=== PATIENT | male | born 1945 | race Caucasian/White ===

== ENCOUNTER → 2021-08-30 | Outpatient (CLI) | payer MEDICARE ==
--- NOTE | 2021-08-30 09:47 | CT ---
EXAMINATION TYPE: CT ankle RT wo con DATE OF EXAM: 08/30/2021 COMPARISON: None HISTORY: 75-year-old male M19.071 Osteoarthritis right ankle and foot. Osteoarthritis Rt Foot and An kle TECHNIQUE: Contiguous axial scanning of the right ankle without IV contrast. Scanning was performed f rom just above the knee joint line down through the right ankle. Coronal and sagittal reconstructions performed. CT DLP: 1022.7 mGycm Automated exposure control for dose reduction was used. FINDINGS: There are bilateral total knee arthroplasties demonstrated. Some degenerative change at the proximal right tibiofibular joint. There is severe degenerative change at the tibiotalar joint with hindfoot valgus and eccentric loss o f cartilage and joint space along the lateral aspect of the tibiotalar joint resulting in bone-on-bon e contact and subchondral cystic change. This hindfoot angulation also results in contact of the distal fibula with the lateral talus and seco ndary bony irregularity and cystic change. There is also secondary significant loss of the medial gordo ar space with reactive cystic change. Small corticomedullary osseous density measuring up to 7 mm below the medial malleolus suggests seque la of remote deltoid ligament injuries. Additional bony fragments are present in the region of the anterior inferior tibiofibular ligament an d lateral malleolus. There is excessive lateral soft tissue density which in part is comprised of the peroneal tendons sug gesting disruption of the peroneal retinaculum. Scattered synovial calcifications. Punctate densities within the sinus Tarsi could represent sequela of old injuries to the root of the extensor retinaculum. There is eccentric joint space narrowing with subchondral cystic change along the medial aspect of th e posterior subtalar joint. Achilles tendon is intact. Degenerative spurring along the dorsal talar neck. Severe degenerative change first MTP joint. IMPRESSION: 1. SEVERE TIBIOTALAR JOINT OA. THERE IS HINDFOOT VALGUS RESULTING IN ECCENTRIC BONE ON BONE CONTACT A LONG THE LATERAL ASPECT OF THE TIBIOTALAR JOINT AND ALSO RESULTING IN [id number] ARTHROPATHY BETWEE N THE DISTAL FIBULA AND LATERAL TALUS. 2. THE ANGULATION ALSO FORCES BONE ON BONE CONTACT MEDIALLY WITH LOSS OF THE MEDIAL CLEAR SPACE. THER E IS ALSO ECCENTRIC OA ALONG THE MEDIAL ASPECT OF THE POSTERIOR SUBTALAR JOINT. 3. CORRESPONDING DEGENERATIVE SPURRING ALONG THE DORSAL TALAR NECK. 4. CORTICATED BONE FRAGMENTS BELOW THE MEDIAL MALLEOLUS, IN THE REGION OF THE AITFL, LATERAL MALLEOLU S, AND ALSO SINUS TARSI SUGGESTING SEQUELA OF REMOTE INJURIES. 5. PROMINENT SOFT TISSUE ALONG THE LATERAL ASPECT OF THE ANKLE SEEMS TO IN PART BE COMPRISED OF DISLO CATED PERONEAL TENDONS SUGGESTING TEAR OF THE SUPERIOR PERONEAL RETINACULUM. 6. SEVERE FIRST MTP JOINT OA INCIDENTALLY NOTED.
== END | disposition home or self-care (01) ==
LOC: RADCTMAIN 08:08
PROVIDERS: ATTEND Orthopaedic Surgery Foot and Ankle Surgery
DX: M19.071 Primary osteoarthritis, right ankle and foot (principal); M21.861 Other specified acquired deformities of right lower leg; M25.774 Osteophyte, right foot

== ENCOUNTER 2022-06-16 10:09 | Emergency (ER) | payer MEDICARE ==
[2022-06-16] MEDS ORDERED: SODIUM CHLORIDE 0.9% 500 ML 500 ML IV STA (10:27)
[2022-06-16] MEDS ORDERED: KETOROLAC 15 MG/ML 1 ML VIAL IM STA (10:27)
--- NOTE | 2022-06-16 10:34 | ED ---
General Adult HPI - General Chief complaint: Chest Pain Stated complaint: SOB, chest pain Time Seen by Provider: 06/16/22 10:20 Source: patient, RN notes reviewed, old records reviewed Mode of arrival: ambulatory Limitations: no limitations - History of Present Illness Initial comments: This is a pleasant 76-year-old male who presents to the emergency room with complaints of chest pain that woke him at 4 AM. Patient states it is worse with deep inspiration. Denies any cough. No nausea, vomiting diarrhea or fevers. Denies any diaphoresis. States he's had similar pain in the past when he had a pulmonary embolism. He also states he's been having some lower extremity cramping. Denies any lower leg swelling. Does have medical history of PE four years ago, cardiac stents, and hypertension. Does not take any blood thinners. -: hour(s) (6) Location: chest Radiation: non-radiation Severity scale (1-10): 8 Quality: sharp Consistency: constant Worsens with: other (Inspiration) Associated Symptoms: other (Bilateral lower extremity cramping) Treatments Prior to Arrival: none - Related Data Home Medications Medication Instructions Recorded Confirmed Vitamin B Complex 1 tab PO DAILY 07/13/14 06/16/22 Vitamin E (Dl,Tocopheryl Acet) 400 unit PO DAILY 07/13/14 06/16/22 [Vitamin E (400 Iu = 180 mg)] atenoloL 25 mg PO DAILY 02/13/16 06/16/22 Aspirin EC [Ecotrin Low Dose] 81 mg PO DAILY 06/16/22 06/16/22 Cholecalciferol [Vitamin D3 (25 25 mcg PO HS 06/16/22 06/16/22 Mcg = 1000 Iu)] Cholecalciferol [Vitamin D3 (25 50 mcg PO DAILY 06/16/22 06/16/22 Mcg = 1000 Iu)] Ezetimibe [Zetia] 10 mg PO HS 06/16/22 06/16/22 Meloxicam [Mobic] 7.5 mg PO BID 06/16/22 06/16/22 Rosuvastatin Calcium 5 mg PO HS 06/16/22 06/16/22 atenoloL 50 mg PO HS 06/16/22 06/16/22 lisinopriL [Prinivil] 20 mg PO DAILY 06/16/22 06/16/22 traZODone HCL [Desyrel] 75 mg PO HS 06/16/22 06/16/22 Previous Rx's Medication Instructions Recorded Magnesium Oxide [Magox 400] 400 mg PO DAILY 14 Days #14 tablet 06/16/22 Allergies Allergy/AdvReac Type Severity Reaction Status Date / Time No Known Allergies Allergy Verified 06/16/22 12:36 Review of Systems ROS Statement: Those systems with pertinent positive or pertinent negative responses have been documented in the HPI. ROS Other: All systems not noted in ROS Statement are negative. Past Medical History Past Medical History: Cancer, Deep Vein Thrombosis (DVT), Hypertension Additional Past Medical History / Comment(s): Other Hx: Skin cancer-basal cell on face-surgically removed, arthiritis bilateral hands & bilateral knees, bursitis bilateral hips-responded well to injections, vitamin D deficiency, urethral stricture tx surgically with laser-pt able to urinate but does not completely empty bladder so he self caths once or twice a day, UTIs prior to self cathing. History of Any Multi-Drug Resistant Organisms: None Reported Past Surgical History: Joint Replacement, Orthopedic Surgery, Tonsillectomy Additional Past Surgical History / Comment(s): skin cancers removed from face, total L knee- needs a total R knee-scheduled for 02/26/16, Multiple arthroscopies of bilateral knees, R hand fx surgically repaired-steel plate and pin in little finger since removed, L ankle fracture with surgical repair. Bilateral eye surgery for glass shard removal. Past Anesthesia/Blood Transfusion Reactions: No Reported Reaction Additional Past Anesthesia/Blood Transfusion Reaction / Comment(s): Pt has never recieved blood. Past Psychological History: No Psychological Hx Reported Smoking Status: Never smoker Past Alcohol Use History: None Reported Past Drug Use History: None Reported - Past Family History Father Additional Family Medical History / Comment(s): Father served in [employer] and came home with mental health issues. He was an alcoholic and suddenly at the age of 48 yrs. Mother Family Medical History: Dementia Additional Family Medical History / Comment(s): Mother passed at age 94yrs. She had slight dementia starting. General Exam Limitations: no limitations General appearance: alert, in no apparent distress Head exam: Present: atraumatic, normocephalic Eye exam: Absent: scleral icterus, conjunctival injection, periorbital swelling ENT exam: Present: mucous membranes moist Neck exam: Present: full ROM. Absent: meningismus Respiratory exam: Present: normal lung sounds bilaterally. Absent: respiratory distress, wheezes, rales, rhonchi, stridor, chest wall tenderness, accessory muscle use, decreased breath sounds Cardiovascular Exam: Present: regular rate, normal rhythm GI/Abdominal exam: Present: soft. Absent: distended, tenderness, guarding, rigid Extremities exam: Present: normal capillary refill. Absent: tenderness, pedal edema, calf tenderness Neurological exam: Present: alert, oriented X3 Psychiatric exam: Present: normal affect, normal mood Skin exam: Present: warm, dry, normal color. Absent: cyanosis, diaphoretic, pallor Course Vital Signs 06/16/22 06/16/22 06/16/22 10:13 10:36 12:17 Temperature 98.4 F Pulse Rate 94 90 84 Respiratory 22 14 18 Rate Blood Pressure 179/90 162/106 171/91 O2 Sat by Pulse 97 94 L 96 Oximetry 06/16/22 13:48 Temperature Pulse Rate 87 Respiratory 16 Rate Blood Pressure 186/97 O2 Sat by Pulse 97 Oximetry EKG Findings - EKG Results: EKG: sinus rhythm (Ventricular rate 90, IN interval 0.178, QRS 0.101, QTC 0.391; left axis deviation) Medical Decision Making - Medical Decision Making Patient presents with left-sided chest pain that awoke him from sleep at 4 AM. Worse within inspiration. Chest x-ray interpreted by me shows bilateral basilar atelectasis with no areas of consolidation. Aortic knob prominent. Radiologist's impression bibasal atelectasis without cardiopulmonary disease process. He is afebrile. Denies any cough. No diaphoresis. Pain is with inspiration only. CBC shows no evidence of leukocytosis. Magnesium 1.5 was given replacement. BUN 22, creatinine 0.7, patient was given IV fluid bolus. CT shows no evidence of pulmonary embolism. Patient continues to have sharp pain with inspiration. He was offered to be placed in observation and declined. Vital signs are stable oxygen saturation 97%, no tachycardia. This is likely costochondritis. Patient directed to increase his fluid intake, take magnesium as prescribed and follow up with his primary care doctor this week. Return to the emergency room with any new or concerning symptoms including persistent chest pain, fevers or difficulty in breathing. Patient and family are agreeable to this plan of care. Case discussed with Dr. Márquez - Lab Data Result diagrams: 06/16/22 10:33 06/16/22 10:33 Lab Results 06/16/22 06/16/22 06/16/22 Range/Units 10:33 10:33 10:33 WBC 8.8 (3.8-10.6) k/uL RBC 4.58 (4.30-5.90) m/uL Hgb 13.9 (13.0-17.5) gm/dL Hct 41.6 (39.0-53.0) % MCV 90.8 (80.0-100.0) fL MCH 30.3 (25.0-35.0) pg MCHC 33.4 (31.0-37.0) g/dL RDW 12.9 (11.5-15.5) % Plt Count 197 (150-450) k/uL MPV 7.2 Neutrophils % 88 % Lymphocytes % 5 % Monocytes % 5 % Eosinophils % 1 % Basophils % 0 % Neutrophils # 7.8 H (1.3-7.7) k/uL Lymphocytes # 0.4 L (1.0-4.8) k/uL Monocytes # 0.5 (0-1.0) k/uL Eosinophils # 0.1 (0-0.7) k/uL Basophils # 0.0 (0-0.2) k/uL PT 10.4 (9.0-12.0) sec INR 0.9 (<1.2) APTT 23.8 (22.0-30.0) sec D-Dimer 1.39 H (<0.60) mg/L FEU Sodium 134 L (137-145) mmol/L Potassium 4.1 (3.5-5.1) mmol/L Chloride 99 (98-107) mmol/L Carbon Dioxide 29 (22-30) mmol/L Anion Gap 6 mmol/L BUN 22 H (9-20) mg/dL Creatinine 0.70 (0.66-1.25) mg/dL Est GFR (CKD-EPI)AfAm >90 (>60 ml/min/1.73 sqM) Est GFR (CKD-EPI)NonAf >90 (>60 ml/min/1.73 sqM) Glucose 137 H (74-99) mg/dL Calcium 9.0 (8.4-10.2) mg/dL Magnesium 1.5 L (1.6-2.3) mg/dL Total Bilirubin 1.2 (0.2-1.3) mg/dL AST 24 (17-59) U/L ALT 28 (4-49) U/L Alkaline Phosphatase 84 (38-126) U/L Troponin I (0.000-0.034) ng/mL Total Protein 6.6 (6.3-8.2) g/dL Albumin 4.1 (3.5-5.0) g/dL 06/16/22 Range/Units 10:33 WBC (3.8-10.6) k/uL RBC (4.30-5.90) m/uL Hgb (13.0-17.5) gm/dL Hct (39.0-53.0) % MCV (80.0-100.0) fL MCH (25.0-35.0) pg MCHC (31.0-37.0) g/dL RDW (11.5-15.5) % Plt Count (150-450) k/uL MPV Neutrophils % % Lymphocytes % % Monocytes % % Eosinophils % % Basophils % % Neutrophils # (1.3-7.7) k/uL Lymphocytes # (1.0-4.8) k/uL Monocytes # (0-1.0) k/uL Eosinophils # (0-0.7) k/uL Basophils # (0-0.2) k/uL PT (9.0-12.0) sec INR (<1.2) APTT (22.0-30.0) sec D-Dimer (<0.60) mg/L FEU Sodium (137-145) mmol/L Potassium (3.5-5.1) mmol/L Chloride (98-107) mmol/L Carbon Dioxide (22-30) mmol/L Anion Gap mmol/L BUN (9-20) mg/dL Creatinine (0.66-1.25) mg/dL Est GFR (CKD-EPI)AfAm (>60 ml/min/1.73 sqM) Est GFR (CKD-EPI)NonAf (>60 ml/min/1.73 sqM) Glucose (74-99) mg/dL Calcium (8.4-10.2) mg/dL Magnesium (1.6-2.3) mg/dL Total Bilirubin (0.2-1.3) mg/dL AST (17-59) U/L ALT (4-49) U/L Alkaline Phosphatase (38-126) U/L Troponin I 0.013 (0.000-0.034) ng/mL Total Protein (6.3-8.2) g/dL Albumin (3.5-5.0) g/dL Disposition Clinical Impression: Elevated d-dimer, Dyspnea, Hypomagnesemia Disposition: HOME SELF-CARE Condition: Good Instructions (If sedation given, give patient instructions): Costochondritis (ED) Additional Instructions: Increase your fluid intake. Take magnesium as prescribed. Tylenol and or Motrin as needed for any pain or discomfort. Follow-up with your primary care doctor this week. Return to the emergency room with any new or concerning symptoms. Prescriptions: Magnesium Oxide [Magox 400] 400 mg PO DAILY 14 Days #14 tablet Is patient prescribed a controlled substance at d/c from ED?: No Referrals: Landy Dixon MD [Primary Care Provider] - 1-2 days Time of Disposition: 13:50
[2022-06-16 11:02] LABS: Basophils % (A) 0 %; Eosinophils # (A) 0.1 k/uL (0-0.7); Eosinophils % (A) 1 %; HCT 41.6 % (39.0-53.0); HGB 13.9 gm/dL (13.0-17.5); Lymphocytes # (A) 0.4 k/uL (1.0-4.8); Lymphocytes % (A) 5 %; MCH 30.3 pg (25.0-35.0); MCHC 33.4 g/dL (31.0-37.0); MCV 90.8 fL (80.0-100.0); Mean Platelet Volume 7.2; Monocytes # (A) 0.5 k/uL (0-1.0); Monocytes % (A) 5 %; Neutrophils # (A) 7.8 k/uL (1.3-7.7); Neutrophils % (A) 88 %; Platelet Count 197 k/uL (150-450); RBC 4.58 m/uL (4.30-5.90); RDW 12.9 % (11.5-15.5); WBC 8.8 k/uL (3.8-10.6)
--- NOTE | 2022-06-16 11:05 | XR ---
EXAMINATION TYPE: XR chest 2V DATE OF EXAM: 06/16/2022 10:57 AM COMPARISON: Chest radiographs from at 4:15 TECHNIQUE: XR chest 2V Frontal and lateral views of the chest. CLINICAL INDICATION:Male, 76 years old with history of Chest Pain; FINDINGS: Lungs/Pleura: Bibasilar atelectasis. No evidence for pneumothorax pleural effusion or focal consolida tion. Pulmonary vascularity: Unremarkable. Heart/mediastinum: Cardiomediastinal silhouette is unremarkable. Musculoskeletal: No acute osseous pathology. IMPRESSION: Bibasilar atelectasis without acute cardiopulmonary disease/process.
[2022-06-16 11:23] LABS: ALT 28 U/L (4-49); AST 24 U/L (17-59); African American GFR (CKD) >90 (>60 ml/min/1.73 sqM); Albumin 4.1 g/dL (3.5-5.0); Alkaline Phosphatase 84 U/L (38-126); Anion Gap 6 mmol/L; Blood Urea Nitrogen 22 mg/dL (9-20); Carbon Dioxide 29 mmol/L (22-30); Chloride 99 mmol/L (98-107); Glucose 137 mg/dL (74-99); Magnesium 1.5 mg/dL (1.6-2.3); Non-African American GFR(CKD) >90 (>60 ml/min/1.73 sqM); Potassium 4.1 mmol/L (3.5-5.1); Sodium 134 mmol/L (137-145); Total Bilirubin 1.2 mg/dL (0.2-1.3); Total Protein 6.6 g/dL (6.3-8.2)
[2022-06-16] MEDS ORDERED: Magnesium Replacement Protocol 1 EACH MISC MISCELLANE PRN (11:24)
[2022-06-16 11:44] LABS: INR 0.9 (<1.2); Partial Thromboplastin Time 23.8 sec (22.0-30.0); Prothrombin Time 10.4 sec (9.0-12.0)
[2022-06-16] MEDS: MAGNESIUM SULFATE-D5W PMX 1 GM in DEXTROSE/WATER 1 100ML.BAG IVPB SCH ×2 (12:14→13:44)
--- NOTE | 2022-06-16 13:05 | CT ---
EXAMINATION TYPE: CT angio chest CT DLP: 381.3 mGycm, Automated exposure control for dose reduction was used. DATE OF EXAM: 06/16/2022 12:54 PM COMPARISON: 01/19/2015. CLINICAL INDICATION:Male, 76 years old with history of elevated dimer r/o pe; SOB h/o blood clots TECHNIQUE/CONTRAST: CTA scan of the thorax is performed with IV Contrast, patient injected with 100 mL of Isovue 370, pul monary embolism protocol. MIP images are created and reviewed. FINDINGS: Pulmonary Artery: There is no evidence for a filling defect within the pulmonary vasculature to sugge st acute pulmonary embolism. The pulmonary artery is at the upper limits normal measuring 3.2 cm. Lungs/Pleura: Peripheral airspace opacities are seen most pronounced in the lung bases left greater t burr right. Airway: Large airways are patent. Heart: The heart is mildly enlarged for size there is coronary artery atherosclerosis. Aortic Valve c alcifications are present. Vasculature: No evidence of aortic aneurysm. Mediastinum: No gross evidence of adenopathy. Musculoskeletal: No acute osseous abnormalities Soft Tissues: Unremarkable. Lower neck: No significant findings. Upper Abdomen calcified granuloma within the spleen. IMPRESSION: 1. No evidence of pulmonary embolism. 2. Bibasilar predominately peripheral opacities which have increased from 2015. Represent combination atelectasis and scarring with underlying airspace disease not entirely excluded. Correlate clinicall y for signs of pneumonia.
[2022-06-16 13:48] VITALS: BP 186/97
[2022-06-16 14:35] VITALS: PULSE 86; RESP 20; TEMP 98.2
== END 2022-06-16 14:47 | disposition home or self-care (01) ==
LOC: EC 10:09
DX: M94.0 Chondrocostal junction syndrome [Tietze] (principal); R06.00 Dyspnea, unspecified; R79.89 Other specified abnormal findings of blood chemistry; E83.42 Hypomagnesemia; I10 Essential (primary) hypertension; Z86.718 Personal history of other venous thrombosis and embolism; Z85.828 Personal history of other malignant neoplasm of skin; Z79.899 Other long term (current) drug therapy; Z86.711 Personal history of pulmonary embolism; Z95.5 Presence of coronary angioplasty implant and graft; Z79.82 Long term (current) use of aspirin
CPT/HCPCS: 36415; 93005; 85379; 80053; 83735; 84484; 85025; 85610; 85730; 71046; 71275; 99285; 96365; 96366; 96361; 96372; J3475; J1885; Q9967

== ENCOUNTER → 2022-07-07 | Outpatient (CLI) | payer MEDICARE ==
--- NOTE | 2022-07-07 12:37 | CT ---
EXAMINATION TYPE: CT brain wo con DATE OF EXAM: 07/07/2022 COMPARISON: None HISTORY: New Daily Persistent Headache CT DLP: 1108.40 mGycm Automated exposure control for dose reduction was used. FINDINGS: Nasal septal deviation. Sinuses clear. Orbits symmetric. Mild generalized degenerative change. Low-at tenuation in the white matter. No midline shift or mass effect. No acute hemorrhage. Calvarium intact . Craniocervical junction maintained. A partially empty sella turcica. Intracranial atherosclerotic c hanges noted. IMPRESSION: MILD DEGENERATIVE CHANGE WITH NONSPECIFIC WHITE MATTER CHANGES MOST TYPICAL OF REMOTE WHITE MATTER IS CHEMIA.
== END | disposition home or self-care (01) ==
LOC: RADCTMAIN 12:03
PROVIDERS: ATTEND Family Medicine
DX: G31.9 Degenerative disease of nervous system, unspecified (principal); G44.52 New daily persistent headache (NDPH); R90.82 White matter disease, unspecified
CPT/HCPCS: 70450

== ENCOUNTER 2022-08-19 12:47 | Emergency (ER) | payer MEDICARE ==
[2022-08-19] MEDS ORDERED: KETOROLAC 15 MG/ML 1 ML VIAL IVP STA (13:41)
[2022-08-19] MEDS ORDERED: SODIUM CHLORIDE 0.9% 1,000 ML IV STA (13:41)
[2022-08-19 13:52] LABS: Basophils # (A) 0.1 k/uL (0-0.2); Basophils % (A) 1 %; Eosinophils # (A) 0.2 k/uL (0-0.7); Eosinophils % (A) 2 %; HCT 45.9 % (39.0-53.0); HGB 15.5 gm/dL (13.0-17.5); Lymphocytes # (A) 1.4 k/uL (1.0-4.8); Lymphocytes % (A) 19 %; MCH 29.7 pg (25.0-35.0); MCHC 33.7 g/dL (31.0-37.0); MCV 88.3 fL (80.0-100.0); Mean Platelet Volume 7.1; Monocytes # (A) 0.5 k/uL (0-1.0); Monocytes % (A) 7 %; Neutrophils # (A) 4.9 k/uL (1.3-7.7); Neutrophils % (A) 69 %; Platelet Count 278 k/uL (150-450); RDW 13.4 % (11.5-15.5)
[2022-08-19 14:06] LABS: ALT 25 U/L (4-49); AST 25 U/L (17-59); African American GFR (CKD) >90 (>60 ml/min/1.73 sqM); Albumin 4.6 g/dL (3.5-5.0); Alkaline Phosphatase 98 U/L (38-126); Anion Gap 8 mmol/L; Blood Urea Nitrogen 28 mg/dL (9-20); Calcium 9.6 mg/dL (8.4-10.2); Carbon Dioxide 28 mmol/L (22-30); Chloride 106 mmol/L (98-107); Glucose 111 mg/dL (74-99); Lipase 123 U/L (23-300); Non-African American GFR(CKD) 84 (>60 ml/min/1.73 sqM); Potassium 4.2 mmol/L (3.5-5.1); Sodium 142 mmol/L (137-145); Total Bilirubin 0.9 mg/dL (0.2-1.3); Total Protein 7.7 g/dL (6.3-8.2)
--- NOTE | 2022-08-19 14:25 | ED ---
Abdominal Pain HPI - General Chief Complaint: Abdominal Pain Stated Complaint: abd pain Time Seen by Provider: 08/19/22 13:04 Source: patient, RN notes reviewed, old records reviewed Mode of arrival: ambulatory Limitations: no limitations - History of Present Illness Initial Comments: Patient is a 76-year-old male presenting to the emergency Department with complaints of abdominal pain that's been getting worse over the past 2 weeks. Patient saw his PCP today who recommended coming in for further evaluation. Patient describes the pain as about a 5/10 when he is not moving, in the middle of his abdomen. Does not radiate. He states he has not been able to eat much over the past 2 weeks and has lost a proximally 17 pounds. He denies any nausea or vomiting just no appetite. He states he has been dealing with some constipation however he has been passing gas. No diarrhea. Patient self caths secondary to urethral stricture, he states yesterday when he did this he did have some blood and today his urine looked orange colored. He denies any chest pain however he does feel some mild shortness of breath, he is not sure if its from the pressure was abdomen. Denies any fevers or chills, no lightheadedness or dizziness. He admits to history of umbilical hernia repair many years ago, no other abdominal surgeries. Patient has no further complaints. - Related Data Home Medications Medication Instructions Recorded Confirmed Vitamin B Complex 1 tab PO DAILY 07/13/14 06/16/22 Vitamin E (Dl,Tocopheryl Acet) 400 unit PO DAILY 07/13/14 06/16/22 [Vitamin E (400 Iu = 180 mg)] atenoloL 25 mg PO DAILY 02/13/16 06/16/22 Aspirin EC [Ecotrin Low Dose] 81 mg PO DAILY 06/16/22 06/16/22 Cholecalciferol [Vitamin D3 (25 25 mcg PO HS 06/16/22 06/16/22 Mcg = 1000 Iu)] Cholecalciferol [Vitamin D3 (25 50 mcg PO DAILY 06/16/22 06/16/22 Mcg = 1000 Iu)] Ezetimibe [Zetia] 10 mg PO HS 06/16/22 06/16/22 Meloxicam [Mobic] 7.5 mg PO BID 06/16/22 06/16/22 Rosuvastatin Calcium 5 mg PO HS 06/16/22 06/16/22 atenoloL 50 mg PO HS 06/16/22 06/16/22 lisinopriL [Prinivil] 20 mg PO DAILY 06/16/22 06/16/22 traZODone HCL [Desyrel] 75 mg PO HS 06/16/22 06/16/22 Previous Rx's Medication Instructions Recorded Magnesium Oxide [Magox 400] 400 mg PO DAILY 14 Days #14 tablet 06/16/22 Cephalexin [Keflex] 500 mg PO Q6HR 7 Days #28 cap 08/19/22 Allergies Allergy/AdvReac Type Severity Reaction Status Date / Time No Known Allergies Allergy Verified 06/16/22 12:36 Review of Systems ROS Statement: Those systems with pertinent positive or pertinent negative responses have been documented in the HPI. ROS Other: All systems not noted in ROS Statement are negative. Past Medical History Past Medical History: Cancer, Deep Vein Thrombosis (DVT), Hypertension, Osteoarthritis (OA) Additional Past Medical History / Comment(s): Other Hx: Skin cancer-basal cell on face-surgically removed, arthiritis bilateral hands & bilateral knees, bursitis bilateral hips-responded well to injections, vitamin D deficiency, urethral stricture tx surgically with laser-pt able to urinate but does not completely empty bladder so he self caths once or twice a day, UTIs prior to self cathing. History of Any Multi-Drug Resistant Organisms: None Reported Past Surgical History: Hernia Repair, Joint Replacement, Orthopedic Surgery, Tonsillectomy Additional Past Surgical History / Comment(s): skin cancers removed from face, total L knee- needs a total R knee-scheduled for 02/26/16, Multiple arthroscopies of bilateral knees, R hand fx surgically repaired-steel plate and pin in little finger since removed, L ankle fracture with surgical repair. Bilateral eye surgery for glass shard removal. Past Anesthesia/Blood Transfusion Reactions: No Reported Reaction Additional Past Anesthesia/Blood Transfusion Reaction / Comment(s): Pt has never recieved blood. Past Psychological History: No Psychological Hx Reported Smoking Status: Never smoker Past Alcohol Use History: None Reported Past Drug Use History: None Reported - Past Family History Father Additional Family Medical History / Comment(s): Father served in [employer] and came home with mental health issues. He was an alcoholic and suddenly at the age of 48 yrs. Mother Family Medical History: Dementia Additional Family Medical History / Comment(s): Mother passed at age 94yrs. She had slight dementia starting. General Exam - General Exam Comments Initial Comments: GENERAL: Patient is well-developed and well-nourished. Patient is nontoxic and in no acute distress. HEAD: Atraumatic, normocephalic. EYES: Pupils equal round and reactive to light, extraocular movements intact, sclera anicteric, conjunctiva are normal. Eyelids were unremarkable. ENT: Moist mucous membranes. NECK: Normal range of motion, supple without lymphadenopathy or JVD. LUNGS: Unlabored respirations. Breath sounds clear to auscultation bilaterally and equal. No wheezes rales or rhonchi. HEART: Regular rate and rhythm without murmurs, rubs or gallops. ABDOMEN: abdomen is soft, tender to palpation around the umbilicus, left lower quadrant. Normoactive bowel sounds. No guarding, no rebound. No masses appreciated. : Deferred MUSCULOSKELETAL: Normal extremities with adequate strength and normal range of motion, no pitting or edema. No clubbing or cyanosis. NEUROLOGICAL: Patient is alert and oriented x 3. Motor and sensory are also intact. Cranial nerves II through XII grossly intact. Symmetrical smile. Normal speech, normal gait. PSYCH: Normal mood, normal affect. SKIN: Warm, Dry, normal turgor, no rashes or lesions noted. Limitations: no limitations Course Vital Signs 08/19/22 08/19/22 12:49 15:42 Temperature 97.3 F L Pulse Rate 94 84 Respiratory 16 19 Rate Blood Pressure 170/102 173/102 O2 Sat by Pulse 97 96 Oximetry Medical Decision Making - Medical Decision Making patient is a 76-year-old male here with umbilical abdominal pain over the past 2 weeks. No appetite, he lost 17 pounds. No fevers, no associated nausea or vomiting. Patient is hypertensive on arrival, rest of vitals normal. Laboratory studies show a normal white count, electrolytes within normal limits, lactic acid is 1.5. CT the abdomen and pelvis shows a 4 cm stable abdominal aortic aneurysm, no other acute process. Urinalysis is positive for nitrates, large amount leukocyte Estrace and 40 wbc's. Urine culture was sent. I did discuss results with the patient and his was at bedside. Patient will be given 1 g of Rocephin here in the ER we sent home on Keflex. Patient is agreeable with this plan. We discussed following up with his PCP regarding the abdominal aortic aneurysm. He will follow-up. Return parameters were d iscussed with the patient he verbalizes understanding. He stable for discharge home. Case discussed with Dr. Mario. Was pt. sent in by a medical professional or institution (, [facility], VENDING MACHINE COIN COLLECTOR, urgent care, hospital, or care home...) When possible be specific @ -[No] Did you speak to anyone other than the patient for history (EMS, parent, family, police, friend...)? What history was obtained from this source @ -[No] Did you review nursing and triage notes (agree or disagree)? Why? @ -[I reviewed and agree with nursing and triage notes] Were old charts reviewed (outside hosp., previous admission, EMS record, old EKG, old radiological studies, urgent care reports/EKG's, care home records)? Report findings @ -[No old charts were reviewed] Differential Diagnosis (chest pain, altered mental status, abdominal pain women, abdominal pain men, vaginal bleeding, weakness, fever, dyspnea, syncope, headache, dizziness, GI bleed, back pain, seizure, CVA, palpatations, mental health)? @ -[Differential Abdominal Pain Men: Appendicitis, cholecystitis, diverticulosis, ischemic bowel, pancreatitis, h epatitis, UTI, gastroenteritis, AAA, incarcerated hernia, bowel obstruction, constipation, inflammatory bowel, hepatitis, peptic ulcer disease, splenic infarction, perforated viscus, testicular torsion, this is not meant to be an all-inclusive list] EKG interpreted by me (3pts min.). @ -[As above] X-rays interpreted by me (1pt min.). @ -[None done] CT interpreted by me (1pt min.). @ -[None done] U/S interpreted by me (1pt. min.). @ -[None done] What testing was considered but not performed or refused? (CT, X-rays, U/S, labs)? Why? @ -[None] What meds were considered but not given or refused? Why? @ -[None] Did you discuss the management of the patient with other professionals (professionals i.e. , [facility], VENDING MACHINE COIN COLLECTOR, lab, RT, psych nurse, secondary social studies teacher, security system analyst, teacher, division officer weapons department, case management director)? Give summary @ -[Dr. Mario] Was smoking cessation discussed for >3mins.? @ -[No] Was critical care preformed (if so, how long)? @ -[No] Were there social determinants of health that impacted care today? How? (Homelessness, low income, unemployed, alcoholism, drug addiction, transportation, low edu. Level, literacy, decrease access to med. care, half-way, rehab)? @ -[No] Was there de-escalation of care discussed even if they declined (Discuss DNR or withdrawal of care, Hospice)? DNR status @ -[No] What co-morbidities impacted this encounter? (DM, HTN, Smoking, COPD, CAD, Cancer, CVA, ARF, Chemo, Hep., AIDS, mental health diagnosis, sleep apnea, morbid obesity)? @ -[None] Drug Therapy requiring intensive monitoring for toxicity (Heparin, Nitro, Insulin, Cardizem)? @ -[No] Were any procedures done? @ -[No] Side effects of treatment? @ -[No] Exacerbation, Progression, or Severe Exacerbation? @ -[No] Poses a threat to life or bodily function? How? (Chest pain, USA, NV, pneumonia, PE, COPD, DKA, ARF, appy, cholecystitis, CVA, Diverticulitis, Homicidal, Suicidal, threat to staff... and all critical care pts) @ -[No] - Lab Data Result diagrams: 08/19/22 13:43 08/19/22 13:43 Lab Results 08/19/22 08/19/22 08/19/22 Range/Units 13:43 13:43 13:43 WBC 7.0 (3.8-10.6) k/uL RBC 5.20 (4.30-5.90) m/uL Hgb 15.5 (13.0-17.5) gm/dL Hct 45.9 (39.0-53.0) % MCV 88.3 (80.0-100.0) fL MCH 29.7 (25.0-35.0) pg MCHC 33.7 (31.0-37.0) g/dL RDW 13.4 (11.5-15.5) % Plt Count 278 (150-450) k/uL MPV 7.1 Neutrophils % 69 % Lymphocytes % 19 % Monocytes % 7 % Eosinophils % 2 % Basophils % 1 % Neutrophils # 4.9 (1.3-7.7) k/uL Lymphocytes # 1.4 (1.0-4.8) k/uL Monocytes # 0.5 (0-1.0) k/uL Eosinophils # 0.2 (0-0.7) k/uL Basophils # 0.1 (0-0.2) k/uL Sodium 142 (137-145) mmol/L Potassium 4.2 (3.5-5.1) mmol/L Chloride 106 (98-107) mmol/L Carbon Dioxide 28 (22-30) mmol/L Anion Gap 8 mmol/L BUN 28 H (9-20) mg/dL Creatinine 0.88 (0.66-1.25) mg/dL Est GFR (CKD-EPI)AfAm >90 (>60 ml/min/1.73 sqM) Est GFR (CKD-EPI)NonAf 84 (>60 ml/min/1.73 sqM) Glucose 111 H (74-99) mg/dL Plasma Lactic Acid Rodrigo (0.7-2.0) mmol/L Calcium 9.6 (8.4-10.2) mg/dL Total Bilirubin 0.9 (0.2-1.3) mg/dL AST 25 (17-59) U/L ALT 25 (4-49) U/L Alkaline Phosphatase 98 (38-126) U/L Total Protein 7.7 (6.3-8.2) g/dL Albumin 4.6 (3.5-5.0) g/dL Lipase 123 (23-300) U/L Urine Color Yellow Urine Appearance Cloudy (Clear) Urine pH 6.0 (5.0-8.0) Ur Specific [place] 1.050 H (1.001-1.035) Urine Protein Trace H (Negative) Urine Glucose (UA) Negative (Negative) Urine Ketones Trace H (Negative) Urine Blood Trace H (Negative) Urine Nitrite Positive (Negative) Urine Bilirubin Negative (Negative) Urine Urobilinogen <2.0 (<2.0) mg/dL Ur Leukocyte Esterase Large H (Negative) Urine RBC 2 (0-5) /hpf Urine WBC 40 H (0-5) /hpf Ur Squamous Epith Cells 1 (0-4) /hpf Urine Bacteria Many H (None) /hpf Urine Mucus Many H (None) /hpf 08/19/22 Range/Units 13:43 WBC (3.8-10.6) k/uL RBC (4.30-5.90) m/uL Hgb (13.0-17.5) gm/dL Hct (39.0-53.0) % MCV (80.0-100.0) fL MCH (25.0-35.0) pg MCHC (31.0-37.0) g/dL RDW (11.5-15.5) % Plt Count (150-450) k/uL MPV Neutrophils % % Lymphocytes % % Monocytes % % Eosinophils % % Basophils % % Neutrophils # (1.3-7.7) k/uL Lymphocytes # (1.0-4.8) k/uL Monocytes # (0-1.0) k/uL Eosinophils # (0-0.7) k/uL Basophils # (0-0.2) k/uL Sodium (137-145) mmol/L Potassium (3.5-5.1) mmol/L Chloride (98-107) mmol/L Carbon Dioxide (22-30) mmol/L Anion Gap mmol/L BUN (9-20) mg/dL Creatinine (0.66-1.25) mg/dL Est GFR (CKD-EPI)AfAm (>60 ml/min/1.73 sqM) Est GFR (CKD-EPI)NonAf (>60 ml/min/1.73 sqM) Glucose (74-99) mg/dL Plasma Lactic Acid Rodrigo 1.5 (0.7-2.0) mmol/L Calcium (8.4-10.2) mg/dL Total Bilirubin (0.2-1.3) mg/dL AST (17-59) U/L ALT (4-49) U/L Alkaline Phosphatase (38-126) U/L Total Protein (6.3-8.2) g/dL Albumin (3.5-5.0) g/dL Lipase (23-300) U/L Urine Color Urine Appearance (Clear) Urine pH (5.0-8.0) Ur Specific [place] (1.001-1.035) Urine Protein (Negative) Urine Glucose (UA) (Negative) Urine Ketones (Negative) Urine Blood (Negative) Urine Nitrite (Negative) Urine Bilirubin (Negative) Urine Urobilinogen (<2.0) mg/dL Ur Leukocyte Esterase (Negative) Urine RBC (0-5) /hpf Urine WBC (0-5) /hpf Ur Squamous Epith Cells (0-4) /hpf Urine Bacteria (None) /hpf Urine Mucus (None) /hpf Disposition Clinical Impression: UTI (urinary tract infection) Disposition: HOME SELF-CARE Condition: Stable Instructions (If sedation given, give patient instructions): Urinary Tract Infection in Men (ED) Additional Instructions: Please return to the Emergency Department if symptoms worsen or any other concerns. Take antibiotics as prescribed, finish entire course. Please take Motrin or Tylenol for any discomfort. Follow-up with your primary care regarding CT findings of the abdomen as well as current infection. Prescriptions: Cephalexin [Keflex] 500 mg PO Q6HR 7 Days #28 cap Is patient prescribed a controlled substance at d/c from ED?: No Referrals: Landy Dixon MD [Primary Care Provider] - 1-2 days Time of Disposition: 16:48
--- NOTE | 2022-08-19 15:40 | CT ---
EXAMINATION TYPE: CT abdomen pelvis w con DATE OF EXAM: 08/19/2022 COMPARISON: None HISTORY: abd pain, weightloss CT DLP: 1290.9 mGycm CONTRAST: CT scan of the abdomen and pelvis is performed without Oral Contrast and with IV Contrast, patient in jected with 100 mL of Isovue 300. FINDINGS: LUNG BASES-: No visible nodule. No infiltrate. LIVER/GB: No calcified gallstones. No space occupying hepatic lesion. Biliary tree is of normal ca liber. PANCREAS: No inflammation. No distinct mass. SPLEEN: No splenic enlargement. No lesion seen. ADRENALS: No nodule. No thickening. KIDNEYS/BLADDER: No hydronephrosis. No nephrolithiasis. No distinct renal mass. Urinary bladder g rossly unremarkable. BOWEL: Normal appendix. Normal bowel caliber. No inflammation. Sigmoid diverticulosis without diver ticulitis. GENITAL ORGANS: No gross abnormality. LYMPH NODES: No greater than 1cm abdominal or pelvic lymph nodes are appreciated. AORTA: Uncomplicated Infrarenal abdominal aortic aneurysm measuring 4 cm AP dimension. Scattered athe romatous change. OSSEOUS STRUCTURES: No significant abnormality is seen. OTHER: No significant additional abnormality is seen. IMPRESSION: 1. No acute intra-abdominal process visualized. 2. Sigmoid diverticulosis without diverticulitis. 3. Infrarenal abdominal aortic aneurysm.
[2022-08-19 16:18] LABS: Appearance,Urine Cloudy (Clear); Bacteria,Urine Many /hpf; Bilirubin,Urine Negative (Negative); Blood,Urine Trace (Negative); Color,Urine Yellow; Glucose,Urine (UA) Negative (Negative); Ketones,Urine Trace (Negative); Leukocyte Esterase,Urine Large (Negative); Mucus,Urine Many /hpf; Nitrite,Urine Positive (Negative); Protein,Urine Trace (Negative); RBC,Urine 2 /hpf (0-5); Squamous Epithelial Cell,Urine 1 /hpf (0-4); Urobilinogen,Urine <2.0 mg/dL (<2.0); WBC,Urine 40 /hpf (0-5)
[2022-08-19] MEDS ORDERED: cefTRIAXone IN SWFI 1,000 MG/10 ML SYRINGE IVP STA (16:44)
[2022-08-19 17:07] VITALS: BP 188/120; PULSE 92; RESP 18; TEMP 97.6
== END 2022-08-19 17:07 | disposition home or self-care (01) ==
LOC: EC 12:47
DX: N39.0 Urinary tract infection, site not specified (principal); K57.30 Diverticulosis of large intestine without perforation or abscess without bleeding; I71.43 Infrarenal abdominal aortic aneurysm, without rupture; I10 Essential (primary) hypertension; M19.90 Unspecified osteoarthritis, unspecified site; Z79.1 Long term (current) use of non-steroidal anti-inflammatories (NSAID); Z79.82 Long term (current) use of aspirin; Z79.899 Other long term (current) drug therapy
CPT/HCPCS: 36415; 80053; 83605; 83690; 85025; 81001; 87086; 74177; 99284; 96374; 96375; 96361 ×3; J0696; J1885; Q9967

== ENCOUNTER 2022-12-04 18:59 | Emergency (ER) | payer MEDICARE ==
--- NOTE | 2022-12-04 20:26 | US ---
EXAMINATION TYPE: US venous doppler duplex LE RT DATE OF EXAM: 12/04/2022 7:56 PM COMPARISON: NONE CLINICAL INDICATION: Male, 77 years old with history of pain; pain in right leg x 3 days. Pt states h is leg has been cramping up. Hx of DVT in left leg years ago. Takes baby aspirin daily SIDE PERFORMED: Right TECHNIQUE: The lower extremity deep venous system is examined utilizing real time linear array sonog danii with graded compression, doppler sonography and color-flow sonography. VESSELS IMAGED: Common Femoral Vein Deep Femoral Vein Greater Saphenous Vein * Femoral Vein Popliteal Vein Small Saphenous Vein * Proximal Calf Veins (* superficial vessels) DESCRIPTION: Grayscale, color doppler, spectral doppler imaging performed of the deep veins of the lower extremiti es. There is normal flow, compressibility, vascular waveforms. IMPRESSION: Negative for DVT, right lower extremity
--- NOTE | 2022-12-04 20:46 | ED ---
General Adult HPI - General Chief complaint: Extremity Injury, Lower Stated complaint: possible DVT Time Seen by Provider: 12/04/22 20:43 Source: patient, RN notes reviewed Mode of arrival: ambulatory - History of Present Illness Initial comments: Patient is 77-year-old male who presents to the emergency department for right lower extremity pain. Patient has pain in the back of his right thigh which started 3 days ago. He denies injury but does admit to a lot of yard work this week. Pain worse with walking. Patient was sent from his primary care provider to rule out DVT. 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 He takes a baby aspirin otherwise no blood there use. No chest pain or shortness of breath. No fever, chills, nausea, vomiting. - Related Data Home Medications Medication Instructions Recorded Confirmed Vitamin B Complex 1 tab PO DAILY 07/13/14 06/16/22 Vitamin E (Dl,Tocopheryl Acet) 400 unit PO DAILY 07/13/14 06/16/22 [Vitamin E (400 Iu = 180 mg)] atenoloL 25 mg PO DAILY 02/13/16 06/16/22 Aspirin EC [Ecotrin Low Dose] 81 mg PO DAILY 06/16/22 06/16/22 Cholecalciferol [Vitamin D3 (25 25 mcg PO HS 06/16/22 06/16/22 Mcg = 1000 Iu)] Cholecalciferol [Vitamin D3 (25 50 mcg PO DAILY 06/16/22 06/16/22 Mcg = 1000 Iu)] Ezetimibe [Zetia] 10 mg PO HS 06/16/22 06/16/22 Meloxicam [Mobic] 7.5 mg PO BID 06/16/22 06/16/22 Rosuvastatin Calcium 5 mg PO HS 06/16/22 06/16/22 atenoloL 50 mg PO HS 06/16/22 06/16/22 lisinopriL [Prinivil] 20 mg PO DAILY 06/16/22 06/16/22 traZODone HCL [Desyrel] 75 mg PO HS 06/16/22 06/16/22 Previous Rx's Medication Instructions Recorded Magnesium Oxide [Magox 400] 400 mg PO DAILY 14 Days #14 tablet 06/16/22 Cephalexin [Keflex] 500 mg PO Q6HR 7 Days #28 cap 08/19/22 Ibuprofen [Motrin] 800 mg PO Q8HR PRN #30 tab 12/04/22 Allergies Allergy/AdvReac Type Severity Reaction Status Date / Time No Known Allergies Allergy Verified 12/04/22 19:07 Review of Systems ROS Statement: Those systems with pertinent positive or pertinent negative responses have been documented in the HPI. ROS Other: All systems not noted in ROS Statement are negative. Past Medical History Past Medical History: Cancer, Deep Vein Thrombosis (DVT), Hypertension, Osteoarthritis (OA) Additional Past Medical History / Comment(s): Other Hx: Skin cancer-basal cell on face-surgically removed, arthiritis bilateral hands & bilateral knees, bursitis bilateral hips-responded well to injections, vitamin D deficiency, urethral stricture tx surgically with laser-pt able to urinate but does not completely empty bladder so he self caths once or twice a day, UTIs prior to self cathing. History of Any Multi-Drug Resistant Organisms: None Reported Past Surgical History: Hernia Repair, Joint Replacement, Orthopedic Surgery, Tonsillectomy Additional Past Surgical History / Comment(s): skin cancers removed from face, total L knee- needs a total R knee-scheduled for 02/26/16, Multiple arthroscopies of bilateral knees, R hand fx surgically repaired-steel plate and pin in little finger since removed, L ankle fracture with surgical repair. Bilateral eye surgery for glass shard removal. Past Anesthesia/Blood Transfusion Reactions: No Reported Reaction Additional Past Anesthesia/Blood Transfusion Reaction / Comment(s): Pt has never recieved blood. Past Psychological History: No Psychological Hx Reported Smoking Status: Never smoker Past Alcohol Use History: None Reported Past Drug Use History: None Reported - Past Family History Father Additional Family Medical History / Comment(s): Father served in [employer] and came home with mental health issues. He was an alcoholic and suddenly at the age of 48 yrs. Mother Family Medical History: Dementia Additional Family Medical History / Comment(s): Mother passed at age 94yrs. She had slight dementia starting. General Exam General appearance: alert, in no apparent distress Head exam: Present: atraumatic, normocephalic, normal inspection Eye exam: Present: normal appearance, PERRL, EOMI. Absent: scleral icterus, conjunctival injection, periorbital swelling Respiratory exam: Present: normal lung sounds bilaterally. Absent: respiratory distress, wheezes, rales, rhonchi, stridor Cardiovascular Exam: Present: regular rate, normal rhythm, normal heart sounds. Absent: systolic murmur, diastolic murmur, rubs, gallop, clicks Right Hip exam: Present: normal inspection, full ROM. Absent: tenderness, swelling Upper Leg exam: Present: normal inspection, full ROM. Absent: tenderness, swelling, erythema Knee exam: Present: normal inspection, full ROM. Absent: tenderness, swelling Lower Leg exam: Present: normal inspection, full ROM. Absent: tenderness, swelling Ankle exam: Present: normal inspection, full ROM. Absent: tenderness, swelling Neurovascular tendon exam: Present: no vascular compromise Gait: observed and normal Neurological exam: Present: alert, oriented X3, CN II-XII intact Psychiatric exam: Present: normal affect, normal mood Skin exam: Present: warm, dry, intact, normal color. Absent: rash Course Vital Signs 12/04/22 19:05 Temperature 98.2 F Pulse Rate 89 Respiratory 16 Rate Blood Pressure 139/81 O2 Sat by Pulse 94 L Oximetry Medical Decision Making - Medical Decision Making Was pt. sent in by a medical professional or institution (, PA, FUR BLOWING MACHINE ATTENDANT, urgent care, hospital, or custodial...) When possible be specific @ -Yes, primary care provider today Did you speak to anyone other than the patient for history (EMS, parent, family, police, friend...)? What history was obtained from this source @ -No Did you review nursing and triage notes (agree or disagree)? Why? @ -I reviewed and agree with nursing and triage notes Were old charts reviewed (outside hosp., previous admission, EMS record, old EKG, old radiological studies, urgent care reports/EKG's, custodial records)? Report findings @ -No old charts were reviewed Differential Diagnosis (chest pain, altered mental status, abdominal pain women, abdominal pain men, vaginal bleeding, weakness, fever, dyspnea, syncope, headache, dizziness, GI bleed, back pain, seizure, CVA, palpatations, mental health)? @ -DVT, muscle strain, cellulitis, Armas's cyst, PAD. This is not this list is not meant all-inclusive EKG interpreted by me (3pts min.). @ -As above X-rays interpreted by me (1pt min.). @ -None done CT interpreted by me (1pt min.). @ -None done U/S interpreted by me (1pt. min.). @ -No. Report What testing was considered but not performed or refused? (CT, X-rays, U/S, labs)? Why? @ -None What meds were considered but not given or refused? Why? @ -None Did you discuss the management of the patient with other professionals (p virgiliofewendis i.e. , PA, FUR BLOWING MACHINE ATTENDANT, lab, RT, psych nurse, social media campaign manager, utility maintenance worker, teacher, loan review officer, caseworker)? Give summary @ -No Was smoking cessation discussed for >3mins.? @ -No Was critical care preformed (if so, how long)? @ -No Were there social determinants of health that impacted care today? How? (Homelessness, low income, unemployed, alcoholism, drug addiction, transportation, low edu. Level, literacy, decrease access to med. care, [facility] [facility], rehab)? @ -[No] Was there de-escalation of care discussed even if they declined (Discuss DNR or withdrawal of care, Hospice)? DNR status @ -[No] What co-morbidities impacted this encounter? (DM, HTN, Smoking, COPD, CAD, Cancer, CVA, ARF, Chemo, Hep., AIDS, mental health diagnosis, sleep apnea, morbid obesity)? @ -[None] Was patient admitted / discharged? Hospital course, mention meds given and route, prescriptions, significant lab abnormalities, going to OR and other pertinent info. @ -This is a 77-year-old male presenting with pain in the back of his right thigh with DVT and PE history. Physical exam is unremarkable. DP 2+. Ultrasound is negative for DVT. Results discussed with patient. Patient states he has appointment with his primary care provider on Thursday to evaluate for possible PAD. There are no ischemic changes of the lower extremity patient is in stable medical condition for discharge Undiagnosed new problem with uncertain prognosis? @ -[No] Drug Therapy requiring intensive monitoring for toxicity (Heparin, Nitro, Insulin, Cardizem)? @ -[No] Were any procedures done? @ -[No] Diagnosis/symptom? @ -right lower extremity pain Acute, or Chronic, or Acute on Chronic? @ -acute Uncomplicated (without systemic symptoms) or Complicated (systemic symptoms)? @ -uncomplicated Side effects of treatment? @ -[No] Exacerbation, Progression, or Severe Exacerbation? @ -[No] Poses a threat to life or bodily function? How? (Chest pain, USA, [place], pneumonia, PE, COPD, DKA, ARF, appy, cholecystitis, CVA, Diverticulitis, Homicidal, Suicidal, threat to staff... and all critical care pts) @ -[No] Dr. Weller is my attending Disposition Clinical Impression: Right leg pain Disposition: HOME SELF-CARE Condition: Good Instructions (If sedation given, give patient instructions): P.R.I.C.E. Treatment (ED) Additional Instructions: Take medication as directed. Please follow-up with your primary care provider in 1-2 days. Return to the emergency department if you experience new, concerning, or worsening symptoms. Prescriptions: Ibuprofen [Motrin] 800 mg PO Q8HR PRN #30 tab PRN Reason: Pain Is patient prescribed a controlled substance at d/c from ED?: No Referrals: Landy Dixon MD [Primary Care Provider] - 1-2 days
[2022-12-04 21:07] VITALS: BP 142/76; PULSE 98; RESP 18; TEMP 97.9
== END 2022-12-04 21:06 | disposition home or self-care (01) ==
LOC: EC 18:59
DX: M79.604 Pain in right leg (principal); I10 Essential (primary) hypertension; M19.90 Unspecified osteoarthritis, unspecified site; Z79.1 Long term (current) use of non-steroidal anti-inflammatories (NSAID); Z79.899 Other long term (current) drug therapy; Z79.82 Long term (current) use of aspirin
CPT/HCPCS: 99283

== ENCOUNTER 2022-12-05 14:17 | Inpatient (IN) | payer MEDICARE ==
[2022-12-05] MEDS ORDERED: RX INFO: IV CONTRAST WAS GIVEN 1 EACH MISC MISCELLANE PRN (15:14)
[2022-12-05 15:50] LABS: Basophils % (A) 0 %; Eosinophils # (A) 0.1 k/uL (0-0.7); Eosinophils % (A) 2 %; HCT 37.5 % (39.0-53.0); Lymphocytes # (A) 1.1 k/uL (1.0-4.8); Lymphocytes % (A) 17 %; MCH 28.6 pg (25.0-35.0); MCHC 31.9 g/dL (31.0-37.0); MCV 89.7 fL (80.0-100.0); Mean Platelet Volume 7.4; Monocytes # (A) 0.4 k/uL (0-1.0); Monocytes % (A) 6 %; Neutrophils # (A) 4.8 k/uL (1.3-7.7); Neutrophils % (A) 71 %; Platelet Count 242 k/uL (150-450); RBC 4.18 m/uL (4.30-5.90); RDW 13.7 % (11.5-15.5); WBC 6.7 k/uL (3.8-10.6)
--- NOTE | 2022-12-05 16:03 | ED ---
General Adult HPI - General Chief complaint: Extremity Injury, Lower Stated complaint: PCP sent for leg pain and numbness Time Seen by Provider: 12/05/22 14:56 Source: patient, RN notes reviewed Mode of arrival: ambulatory Limitations: no limitations - History of Present Illness Initial comments: 77-year-old male with no significant past medical history presents to the emergency department with a chief complaint of right leg pain. Patient r eports worsening right leg pain that started 12/02/2022. He denies any trauma or injury. He reports that his symptoms, numbness, tingling that starts from the calf down. He is never had this before. He has not taken anything for his symptoms. He was here yesterday and received an ultrasound Doppler which was negative. He denies any coming symptoms of dizziness, lightheadedness, headache, chest pain, shortness of breath, cough, nausea, vomiting. Report having an ankle replacement approximately a year and half ago. Patient denies anticoagulant use. Patient was a previous smoker and quit approximately 35 years ago. - Related Data Home Medications Medication Instructions Recorded Confirmed Vitamin B Complex 1 tab PO DAILY 07/13/14 12/05/22 Vitamin E (Dl,Tocopheryl Acet) 400 unit PO DAILY 07/13/14 12/05/22 [Vitamin E (400 Iu = 180 mg)] atenoloL 25 mg PO HS 02/13/16 12/05/22 Aspirin EC [Ecotrin Low Dose] 81 mg PO DAILY 06/16/22 12/05/22 Ezetimibe [Zetia] 10 mg PO HS 06/16/22 12/05/22 Meloxicam [Mobic] 7.5 mg PO BID 06/16/22 12/05/22 Rosuvastatin Calcium 5 mg PO HS 06/16/22 12/05/22 atenoloL 50 mg PO DAILY 06/16/22 12/05/22 lisinopriL [Prinivil] 20 mg PO DAILY 06/16/22 12/05/22 traZODone HCL [Desyrel] 75 mg PO HS 06/16/22 12/05/22 Cholecalciferol [Vitamin D3 (125 250 mcg PO BID 12/05/22 12/05/22 Mcg = 5000 Iu)] Ibuprofen [Motrin] 800 mg PO TID PRN 12/05/22 12/05/22 Melatonin 10 mg PO HS 12/05/22 12/05/22 Omeprazole [PriLOSEC] 40 mg PO DAILY 12/05/22 12/05/22 Previous Rx's Medication Instructions Recorded Magnesium Oxide [Magox 400] 400 mg PO DAILY 14 Days #14 tablet 06/16/22 Allergies Allergy/AdvReac Type Severity Reaction Status Date / Time No Known Allergies Allergy Verified 12/05/22 17:22 Review of Systems ROS Statement: Those systems with pertinent positive or pertinent negative responses have been documented in the HPI. ROS Other: All systems not noted in ROS Statement are negative. Past Medical History Past Medical History: Cancer, Deep Vein Thrombosis (DVT), Hypertension, Osteoarthritis (OA) Additional Past Medical History / Comment(s): Other Hx: Skin cancer-basal cell on face-surgically removed, arthiritis bilateral hands & bilateral knees, bursitis bilateral hips-responded well to injections, vitamin D deficiency, urethral stricture tx surgically with laser-pt able to urinate but does not completely empty bladder so he self caths once or twice a day, UTIs prior to self cathing. History of Any Multi-Drug Resistant Organisms: None Reported Past Surgical History: Hernia Repair, Joint Replacement, Orthopedic Surgery, Tonsillectomy Additional Past Surgical History / Comment(s): skin cancers removed from face, total L knee- needs a total R knee-scheduled for 02/26/16, Multiple arthroscopies of bilateral knees, R hand fx surgically repaired-steel plate and pin in little finger since removed, L ankle fracture with surgical repair. Bilateral eye surgery for glass shard removal. Past Anesthesia/Blood Transfusion Reactions: No Reported Reaction Additional Past Anesthesia/Blood Transfusion Reaction / Comment(s): Pt has never recieved blood. Past Psychological History: No Psychological Hx Reported Smoking Status: Never smoker Past Alcohol Use History: None Reported Past Drug Use History: None Reported - Past Family History Father Additional Family Medical History / Comment(s): Father served in [employer] and came home with mental health issues. He was an alcoholic and suddenly at the age of 48 yrs. Mother Family Medical History: Dementia Additional Family Medical History / Comment(s): Mother passed at age 94yrs. She had slight dementia starting. General Exam - General Exam Comments Initial Comments: General: Alert, in no acute distress Head: atraumatic normocephalic. Eyes PERRL, EOMI intact, mucous membranes moist Respiratory: Lungs clear to auscultation bilaterally Cardiovascular: Heart rate regular rate and rhythm Abdominal: Soft without guarding or rebound Extremities: Normal inspection with full range of motion and normal capillary refill, 2+ DP/PT pulses on left, 0+ DP/PT on R Extremities are warm and dry, no tenderness to palpation, sensation is decreased Neuroogic: alert and oriented 3, CN II-XII intact, able to ambulate with steady gait Skin: warm dry and intact with normal color Limitations: no limitations Course Vital Signs 12/05/22 12/05/22 12/05/22 14:22 14:42 14:50 Temperature 97.6 F Pulse Rate 77 69 Respiratory 18 18 Rate Blood Pressure 177/95 174/75 174/75 O2 Sat by Pulse 97 97 96 Oximetry 12/05/22 12/05/22 12/05/22 15:00 15:30 16:00 Temperature Pulse Rate 70 Respiratory Rate Blood Pressure 174/75 146/78 168/78 O2 Sat by Pulse 96 94 L 95 Oximetry 12/05/22 12/05/22 12/05/22 16:30 17:00 17:31 Temperature 97.7 F Pulse Rate 63 Respiratory 19 Rate Blood Pressure 163/83 172/89 185/92 O2 Sat by Pulse 96 98 96 Oximetry 12/05/22 12/05/22 12/05/22 18:00 18:10 18:30 Temperature Pulse Rate 76 Respiratory 16 Rate Blood Pressure 185/92 174/76 174/76 O2 Sat by Pulse 96 98 Oximetry - Reevaluation(s) Reevaluation #1: 12/05/22 17:30 Patient updated on CTA results. 12/05/22 17:50 Case discussed with Freddie Ingram who agrees and accepts the patient for admission EKG Findings - EKG Comments: EKG Findings:: I interpreted the following: EKG performed at 1556. Rate 64 bpm normal sinus rhythm with occasional SVTs. WI interval 173, QRS duration 107, QT/QTc 399/408 Medical Decision Making - Medical Decision Making Was pt. sent in by a medical professional or institution (, PA, MANAGER STATISTICS, urgent care, hospital, or shelter...) When possible be specific @ -[No] Did you speak to anyone other than the patient for history (EMS, parent, family, police, friend...)? What history was obtained from this source @ -[No] Did you review nursing and triage notes (agree or disagree)? Why? @ -[I reviewed and agree with nursing and triage notes] Were old charts reviewed (outside hosp., previous admission, EMS record, old EKG, old radiological studies, urgent care reports/EKG's, shelter records)? Report findings @ -[No old charts were reviewed] Differential Diagnosis (chest pain, altered mental status, abdominal pain women, abdominal pain men, vaginal bleeding, weakness, fever, dyspnea, syncope, headache, dizziness, GI bleed, back pain, seizure, CVA, palpatations, mental health, musculoskeletal)? @ -[not applicable] EKG interpreted by me (3pts min.). @ -[As above] X-rays interpreted by me (1pt min.). @ -[None done] CT interpreted by me (1pt min.). @ -[None done] U/S interpreted by me (1pt. min.). @ -[None done] What testing was considered but not performed or refused? (CT, X-rays, U/S, labs)? Why? @ -[None] What meds were considered but not given or refused? Why? @ -[None] Did you discuss the management of the patient with other professionals (professionals i.e. , PA, MANAGER STATISTICS, lab, RT, psych nurse, social service agency director, manager intensive care unit, teacher, traffic officer, casework manager)? Give summary @ -[No] Was smoking cessation discussed for >3mins.? @ -[No] Was critical care preformed (if so, how long)? @ -[No] Were there social determinants of health that impacted care today? How? (Homel essness, low income, unemployed, alcoholism, drug addiction, transportation, low edu. Level, literacy, decrease access to med. care, fpc, rehab)? @ -[No] Was there de-escalation of care discussed even if they declined (Discuss DNR or withdrawal of care, Hospice)? DNR status @ -[No] What co-morbidities impacted this encounter? (DM, HTN, Smoking, COPD, CAD, Cancer, CVA, ARF, Chemo, Hep., AIDS, mental health diagnosis, sleep apnea, morbid obesity)? @ -[None] Was patient admitted / discharged? Hospital course, mention meds given and route, prescriptions, significant lab abnormalities, going to OR and other pertinent info. @ -Admission. 77-year-old male presents to the emergency department with right leg pain. Patient had a thorough history and physical exam performed while in the ED. Right lower extremit without DP/PT pulses, sensation is decre ased. Lab work and imaging performed on the ED. Labs remarkable for WBC 6.7, hemoglobin 12.0 chemistry unremarkable. Lab 34, creatinine 0.97. 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 He was started on IV heparin. Patient declining anything for pain at this time. Case discussed with freddie Ingram who agrees and accepts the patient for admission. Consult made to Dr. Loredo, vascular surgeon. Case discussed with Dr. Weller Who agrees with plan of care Undiagnosed new problem with uncertain prognosis? @ -[No] Drug Therapy requiring intensive monitoring for toxicity (Heparin, Nitro, Insulin, Cardizem)? @ -[No] Were any procedures done? @ -[No] Diagnosis/symptom? @ -Occlusion of R Femoral Artery -R Leg Pain Acute, or Chronic, or Acute on Chronic? @ -acute Uncomplicated (without systemic symptoms) or Complicated (systemic symptoms)? @ -[default] Side effects of treatment? @ -[No] Exacerbation, Progression, or Severe Exacerbation? @ -[No] Poses a threat to life or bodily function? How? (Chest pain, [place], [place], pneumonia, PE, COPD, DKA, ARF, appy, cholecystitis, CVA, Diverticulitis, Homicidal, Suicidal, threat to staff... and all critical care pts) @ -high likelihood - Lab Data Result diagrams: 12/05/22 15:38 12/05/22 15:38 Lab Results 12/05/22 12/05/22 Range/Units 15:38 15:38 WBC 6.7 (3.8-10.6) k/uL RBC 4.18 L (4.30-5.90) m/uL Hgb 12.0 L (13.0-17.5) gm/dL Hct 37.5 L (39.0-53.0) % MCV 89.7 (80.0-100.0) fL MCH 28.6 (25.0-35.0) pg MCHC 31.9 (31.0-37.0) g/dL RDW 13.7 (11.5-15.5) % Plt Count 242 (150-450) k/uL MPV 7.4 Neutrophils % 71 % Lymphocytes % 17 % Monocytes % 6 % Eosinophils % 2 % Basophils % 0 % Neutrophils # 4.8 (1.3-7.7) k/uL Lymphocytes # 1.1 (1.0-4.8) k/uL Monocytes # 0.4 (0-1.0) k/uL Eosinophils # 0.1 (0-0.7) k/uL Basophils # 0.0 (0-0.2) k/uL Sodium 139 (137-145) mmol/L Potassium 4.3 (3.5-5.1) mmol/L Chloride 103 (98-107) mmol/L Carbon Dioxide 27 (22-30) mmol/L Anion Gap 9 mmol/L BUN 34 H (9-20) mg/dL Creatinine 0.97 (0.66-1.25) mg/dL Est GFR (CKD-EPI)AfAm 87 (>60 ml/min/1.73 sqM) Est GFR (CKD-EPI)NonAf 76 (>60 ml/min/1.73 sqM) Glucose 98 (74-99) mg/dL Calcium 9.1 (8.4-10.2) mg/dL Total Bilirubin 0.6 (0.2-1.3) mg/dL AST 31 (17-59) U/L ALT 29 (4-49) U/L Alkaline Phosphatase 81 (38-126) U/L Total Protein 6.5 (6.3-8.2) g/dL Albumin 3.9 (3.5-5.0) g/dL Disposition 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
[2022-12-05 16:05] LABS: Albumin 3.9 g/dL (3.5-5.0); Calcium 9.1 mg/dL (8.4-10.2); Potassium 4.3 mmol/L (3.5-5.1); Total Bilirubin 0.6 mg/dL (0.2-1.3); Total Protein 6.5 g/dL (6.3-8.2)
--- NOTE | 2022-12-05 17:11 | CT ---
EXAMINATION TYPE: CT angio lower extremity RT CT DLP: 1667 mGycm, Automated exposure control for dose reduction was used. DATE OF EXAM: 12/05/2022 4:43 PM COMPARISON: 08/19/2022 CLINICAL INDICATION:Male, 77 years old with history of right leg pain, numbness, change of color TECHNIQUE: Axial images were obtained of the right lower extremity . Additional coronal and sagittal reformatted images and soft tissue and bone window were obtained for review. 3-D reconstruction was created on a separate workstation. 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 T he remainder of the superficial femoral artery demonstrates scattered atherosclerosis of calcified an d calcified without evidence of occlusion. There is a another short segment of high-grade stenosis ju st proximal to the knee with at least 70%. No evidence of abnormal soft tissue finding. The visualized portions of the popliteal artery are patent. There is a total knee arthropathy changes which limits evaluation. Fixation hardware in the ankle is also present. Hardware in both the knee and ankle appear intact. No evidence of fracture. Scattered colonic diverticula are seen in the abdomen. The appendix is normal. There is trabeculated bladder wall. IMPRESSION: 1. Occlusion of the common femoral artery extending approximately 5.6 with reconstitution. 2. High-grade stenosis of at least 70% of the distal superficial femoral artery just superior to the knee. 3. Anterior tibial and posterior tibial arteries cross the ankle. 4. Trabeculated bladder wall correlate with urinalysis for cystitis and chronic bladder outlet obstr uction. 5. Post arthroplasty changes of the knee and ankle without evidence of fracture.
[2022-12-05] MEDS ORDERED: HEPARIN SODIUM 1,000 UN/ML (10ML VL) IV PRN (17:36)
[2022-12-05] MEDS ORDERED: HEPARIN SODIUM 1,000 UN/ML (10ML VL) IV ONE (17:42)
[2022-12-05] MEDS: HEPARIN SOD,PORK IN 0.45% NACL 25,000 UNIT in 0.45% NACL 1 250ML.BAG IV SCH (18:07)
[2022-12-05] MEDS ORDERED: ACETAMINOPHEN TAB 325 MG TAB PO PRN (18:10)
[2022-12-05] MEDS ORDERED: NALOXONE 0.4 MG/ML 1 ML VIAL IV PRN (18:10)
[2022-12-05] MEDS: SODIUM CHLORIDE 0.9% 1,000 ML IV SCH (18:32)
--- NOTE | 2022-12-05 19:17 | P.GSCN ---
History of Present Illness Consult date: 12/05/22 Reason for Consult: Lower extremity arterial occlusive disease. History of present illness: Patient is a 77-year-old male who presented today with a chief complaint of right leg and foot pain. 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 The patient did respond to this discomfort by rubbing his thigh and applying [place] type of substance. This eventually resolved. Over the next few days because of his anniversary and birthday he "put up with the pain ". He is unable to walk any significant distance due to leg pain which seems to be improved with cessati on of ambulation. He is complaining of some small degree of foot numbness although he indicates he can move his foot without issue. He denied any previous similar symptoms. 6 months prior he can walk 2-3 miles without any issue. He has a history of cardiac disease and has had 2 stents placed in the past. He is a reformed smoker and has not used cigarettes for an greater than 25 years and smoked in total for approximately 20 years. He denies any previous CVA. Past Medical History Past Medical History: Cancer, Deep Vein Thrombosis (DVT), Hypertension, Osteoarthritis (OA) Additional Past Medical History / Comment(s): Other Hx: Skin cancer-basal cell on face-surgically removed, arthiritis bilateral hands & bilateral knees, bursitis bilateral hips-responded well to injections, vitamin D deficiency, urethral stricture tx surgically with laser-pt able to urinate but does not completely empty bladder so he self caths once or twice a day, UTIs prior to self cathing. History of Any Multi-Drug Resistant Organisms: None Reported Past Surgical History: Hernia Repair, Joint Replacement, Orthopedic Surgery, Tonsillectomy Additional Past Surgical History / Comment(s): skin cancers removed from face, total L knee- needs a total R knee-scheduled for 02/26/16, Multiple arthroscopies of bilateral knees, R hand fx surgically repaired-steel plate and pin in little finger since removed, L ankle fracture with surgical repair. Bilateral eye surgery for glass shard removal. Past Anesthesia/Blood Transfusion Reactions: No Reported Reaction Additional Past Anesthesia/Blood Transfusion Reaction / Comm: Pt has never recieved blood. Past Psychological History: No Psychological Hx Reported Smoking Status: Never smoker Past Alcohol Use History: None Reported Past Drug Use History: None Reported - Past Family History Father Additional Family Medical History / Comment(s): Father served in [place] and came home with mental health issues. He was an alcoholic and suddenly at the age of 48 yrs. Mother Family Medical History: Dementia Additional Family Medical History / Comment(s): Mother passed at age 94yrs. She had slight dementia starting. Medications and Allergies Home Medications Medication Instructions Recorded Confirmed Type Vitamin B Complex 1 tab PO DAILY 07/13/14 12/05/22 History Vitamin E (Dl,Tocopheryl Acet) 400 unit PO DAILY 07/13/14 12/05/22 History [Vitamin E (400 Iu = 180 mg)] atenoloL 25 mg PO HS 02/13/16 12/05/22 History Aspirin EC [Ecotrin Low Dose] 81 mg PO DAILY 06/16/22 12/05/22 History Ezetimibe [Zetia] 10 mg PO HS 06/16/22 12/05/22 History Magnesium Oxide [Magox 400] 400 mg PO DAILY 14 Days #14 tablet 06/16/22 12/05/22 Rx Meloxicam [Mobic] 7.5 mg PO BID 06/16/22 12/05/22 History Rosuvastatin Calcium 5 mg PO HS 06/16/22 12/05/22 History atenoloL 50 mg PO DAILY 06/16/22 12/05/22 History lisinopriL [Prinivil] 20 mg PO DAILY 06/16/22 12/05/22 History traZODone HCL [Desyrel] 75 mg PO HS 06/16/22 12/05/22 History Cholecalciferol [Vitamin D3 (125 250 mcg PO BID 12/05/22 12/05/22 History Mcg = 5000 Iu)] Ibuprofen [Motrin] 800 mg PO TID PRN 12/05/22 12/05/22 History Melatonin 10 mg PO HS 12/05/22 12/05/22 History Omeprazole [PriLOSEC] 40 mg PO DAILY 12/05/22 12/05/22 History Allergies Allergy/AdvReac Type Severity Reaction Status Date / Time No Known Allergies Allergy Verified 12/05/22 17:22 Surgical - Exam Osteopathic Statement: *. No significant issues noted on an osteopathic str uctural exam other than those noted in the History and Physical/Consult. Vital Signs Temp Pulse Resp BP Pulse Ox 97.6 F 77 18 177/95 97 12/05/22 14:22 12/05/22 14:22 12/05/22 14:22 12/05/22 14:22 12/05/22 14:22 Patient Seen Date: 12/05/22 Patient Seen Time: 19:10 - General well developed, well nourished, no distress, moderate distress, no pain, moderate pain, severe pain, cachectic, chronically ill, obese, other - Eyes PERRL - Neck no masses, no bruits - Respiratory normal expansion - Cardiovascular Rhythm: regular - Abdomen Abdomen: soft, non tender - Integumentary no rash, no growths - Neurologic Toes are freely movable. The patient has some decreased sensation of the toes of the right foot. The foot however as well as the toes are nontender to palpa tion. Sluggish capillary refill is noted. Results - Labs 12/05/22 15:38 12/05/22 15:38 Abnormal Lab Results - Last 24 Hours (Table) 12/05/22 12/05/22 Range/Units 15:38 15:38 RBC 4.18 L (4.30-5.90) m/uL Hgb 12.0 L (13.0-17.5) gm/dL Hct 37.5 L (39.0-53.0) % BUN 34 H (9-20) mg/dL Diabetes panel 12/05/22 Range/Units 15:38 Sodium 139 (137-145) mmol/L Potassium 4.3 (3.5-5.1) mmol/L Chloride 103 (98-107) mmol/L Carbon Dioxide 27 (22-30) mmol/L BUN 34 H (9-20) mg/dL Creatinine 0.97 (0.66-1.25) mg/dL Glucose 98 (74-99) mg/dL Calcium 9.1 (8.4-10.2) mg/dL AST 31 (17-59) U/L ALT 29 (4-49) U/L Alkaline Phosphatase 81 (38-126) U/L Total Protein 6.5 (6.3-8.2) g/dL Albumin 3.9 (3.5-5.0) g/dL Calcium panel 12/05/22 Range/Units 15:38 Calcium 9.1 (8.4-10.2) mg/dL Albumin 3.9 (3.5-5.0) g/dL Pituitary panel 12/05/22 Range/Units 15:38 Sodium 139 (137-145) mmol/L Potassium 4.3 (3.5-5.1) mmol/L Chloride 103 (98-107) mmol/L Carbon Dioxide 27 (22-30) mmol/L BUN 34 H (9-20) mg/dL Creatinine 0.97 (0.66-1.25) mg/dL Glucose 98 (74-99) mg/dL Calcium 9.1 (8.4-10.2) mg/dL Adrenal panel 12/05/22 Range/Units 15:38 Sodium 139 (137-145) mmol/L Potassium 4.3 (3.5-5.1) mmol/L Chloride 103 (98-107) mmol/L Carbon Dioxide 27 (22-30) mmol/L BUN 34 H (9-20) mg/dL Creatinine 0.97 (0.66-1.25) mg/dL Glucose 98 (74-99) mg/dL Calcium 9.1 (8.4-10.2) mg/dL Total Bilirubin 0.6 (0.2-1.3) mg/dL AST 31 (17-59) U/L ALT 29 (4-49) U/L Alkaline Phosphatase 81 (38-126) U/L Total Protein 6.5 (6.3-8.2) g/dL Albumin 3.9 (3.5-5.0) g/dL - Imaging CT scan - abdomen: image reviewed CT scan - chest: image reviewed (This demonstrates focal and severe stenosis/occlusion of the right common femoral artery. 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 2: Remote history of tobacco use. 3: History of coronary disease status post cardiac stent placement. Plan: 1: Patient will require surgical revascularization in the form of a femoral endarterectomy. 2: Preoperative cardiac/medical clearance is requested. 3: We'll obtain arterial Doppler study to document pre-surgical status/perfusion4 4: Direct discussion was held with admitting medical service. Time with Patient: Greater than 30
[2022-12-05 19:41] LABS: Basophils % (A) 0 %; Eosinophils # (A) 0.2 k/uL (0-0.7); Eosinophils % (A) 2 %; HCT 37.8 % (39.0-53.0); HGB 12.2 gm/dL (13.0-17.5); Lymphocytes # (A) 1.5 k/uL (1.0-4.8); Lymphocytes % (A) 20 %; MCHC 32.3 g/dL (31.0-37.0); MCV 89.7 fL (80.0-100.0); Mean Platelet Volume 7.8; Monocytes # (A) 0.4 k/uL (0-1.0); Monocytes % (A) 5 %; Neutrophils % (A) 69 %; Platelet Count 227 k/uL (150-450); RBC 4.22 m/uL (4.30-5.90); RDW 13.7 % (11.5-15.5); WBC 7.3 k/uL (3.8-10.6)
[2022-12-05 20:40] LABS: Partial Thromboplastin Time 60.2 sec (22.0-30.0); Prothrombin Time 10.9 sec (9.0-12.0)
--- NOTE | 2022-12-05 22:02 | P.HPIM ---
History of Present Illness H&P Date: 12/05/22 The patient is a 77-year-old male with a PMH of CAD status post 2 stents (4 years ago), hypertension, AAA (4 cms) and BPH status post TURP who presents to the emergency room with complaints of right lower extremity pain. Patient reports that his symptoms started on December 02 when he woke up in the morning with severe right lower extremity pain with cramps. The patient states that his pain improved with rubbing his calf. He states that this initial pain and gradually improved over the next 24 hours but then recurred and was now accompanied by right foot numbness. At time of interview, he reports that his pain is at a 3 out of 10 of the right lower extremity most pronounced in the right calf. He reports that over the past 2 days, he has had severe right calf pain with ambulation. He denies experiencing chest discomfort or shortness of breath. Also denied fever, chills. Patient reports an excellent exercise tolerance and states that he is able to climb multiple flights of stairs and walk several hours without experiencing chest discomfort or shortness of breath at his base line. The patient's evaluation from the emergency room was reviewed with CT angiogram of the right lower extremity showing occlusion of the common femoral artery extending approximately 5.6 with reconstitution with a high-grade stenosis of at least 70% of the distal superficial femoral artery. ED documentation reviewed and case discussed with ED provider. Review of systems: Pertinent positives and negatives as discussed in HPI, a complete review of systems was performed and all other systems are negative. Physical examination: Vital signs reviewed General: non toxic, no distress, appears at stated age, normal weight Derm: no unusual rashes/lesions, warm Head: atraumatic, normocephalic, symmetric Eyes: EOMI, no lid lag, anicteric sclera, pupils equal round reactive to light ENT: Nose and ears atraumatic Neck: No cervical lymphadenopathy, trachea midline, supple Mouth: no lip lesion, mucus membranes moist Cardiovascular: S1S2 reg, no murmur, positive dorsalis pedis pulse bilateral, no edema Lungs: CTA bilateral, no rhonchi, no rales, no accessory muscle use Abdominal: soft, nontender to palpation, no guarding Ext: muscle strength 5 out of 5 in all 4 extremities grossly, no gross muscle atrophy, no contractures, Neuro: CN II-XI grossly intact, no gross focal neuro deficits, right lower extremity numbness distal to the mid robles Psych: Alert, oriented, appropriate affect Assessment: Right common femoral artery occlusion Chronic conditions: CAD status post stents, hypertension, tobacco abuse Imaging: CT angiogram of the right lower extremity showing occlusion of the common femoral artery extending approximately 5.6 with reconstitution with a high-grade stenosis of at least 70% of the distal superficial femoral artery. Data Review: Laboratory evaluation was reviewed with WBC count 7.3, hemoglobin 12.2, sodium 139, potassium 4.3, BUN 34, creatinine 0.97, and glucose 87. Plan: Obtain cardiology consult for preop clearance Vascular surgery recommendations appreciated Agree with continued IV heparin use DVT prophylaxis: Heparin subcu The patient is admitted with an anticipated greater than 2 midnight stay for evaluation of RLE occlusive disease CODE STATUS: Full Code Discussed with: Patient Anticipated discharge date: 3-[address]: Home Past Medical History Past Medical History: Cancer, Deep Vein Thrombosis (DVT), Hypertension, Osteoarthritis (OA) Additional Past Medical History / Comment(s): Other Hx: Skin cancer-basal cell on face-surgically removed, arthiritis bilateral hands & bilateral knees, bursitis bilateral hips-responded well to injections, vitamin D deficiency, urethral stricture tx surgically with laser-pt able to urinate but does not completely empty bladder so he self caths once or twice a day, UTIs prior to self cathing. History of Any Multi-Drug Resistant Organisms: None Reported Past Surgical History: Hernia Repair, Joint Replacement, Orthopedic Surgery, Tonsillectomy Additional Past Surgical History / Comment(s): skin cancers removed from face, total L knee- needs a total R knee-scheduled for 02/26/16, Multiple arthroscopies of bilateral knees, R hand fx surgically repaired-steel plate and pin in little finger since removed, L ankle fracture with surgical repair. Bilateral eye surgery for glass shard removal. Past Anesthesia/Blood Transfusion Reactions: No Reported Reaction Additional Past Anesthesia/Blood Transfusion Reaction / Comment(s): Pt has never recieved blood. Past Psychological History: No Psychological Hx Reported Smoking Status: Never smoker Past Alcohol Use History: None Reported Past Drug Use History: None Reported - Past Family History Father Additional Family Medical History / Comment(s): Father served in [email or web address] and came home with mental health issues. He was an alcoholic and suddenly at the age of 48 yrs. Mother Family Medical History: Dementia Additional Family Medical History / Comment(s): Mother passed at age 94yrs. She had slight dementia starting. Medications and Allergies Home Medications Medication Instructions Recorded Confirmed Type Vitamin B Complex 1 tab PO DAILY 07/13/14 12/05/22 History Vitamin E (Dl,Tocopheryl Acet) 400 unit PO DAILY 07/13/14 12/05/22 History [Vitamin E (400 Iu = 180 mg)] atenoloL 25 mg PO HS 02/13/16 12/05/22 History Aspirin EC [Ecotrin Low Dose] 81 mg PO DAILY 06/16/22 12/05/22 History Ezetimibe [Zetia] 10 mg PO HS 06/16/22 12/05/22 History Magnesium Oxide [Magox 400] 400 mg PO DAILY 14 Days #14 tablet 06/16/22 12/05/22 Rx Meloxicam [Mobic] 7.5 mg PO BID 06/16/22 12/05/22 History Rosuvastatin Calcium 5 mg PO HS 06/16/22 12/05/22 History atenoloL 50 mg PO DAILY 06/16/22 12/05/22 History lisinopriL [Prinivil] 20 mg PO DAILY 06/16/22 12/05/22 History traZODone HCL [Desyrel] 75 mg PO HS 06/16/22 12/05/22 History Cholecalciferol [Vitamin D3 (125 250 mcg PO BID 12/05/22 12/05/22 History Mcg = 5000 Iu)] Ibuprofen [Motrin] 800 mg PO TID PRN 12/05/22 12/05/22 History Melatonin 10 mg PO HS 12/05/22 12/05/22 History Omeprazole [PriLOSEC] 40 mg PO DAILY 12/05/22 12/05/22 History Allergies Allergy/AdvReac Type Severity Reaction Status Date / Time No Known Allergies Allergy Verified 12/05/22 17:22 Physical Exam Vitals: Vital Signs Temp Pulse Resp BP Pulse Ox 12/05/22 19:59 98.4 F 66 18 182/87 96 12/05/22 19:10 70 17 177/91 97 12/05/22 18:30 174/76 98 12/05/22 18:10 76 16 174/76 96 12/05/22 18:00 185/92 05/12/23 17:31 97.7 F 63 19 185/92 96 12/05/22 17:00 172/89 98 12/05/22 16:30 163/83 96 12/05/22 16:00 168/78 95 12/05/22 15:30 70 146/78 94 L 12/05/22 15:00 174/75 96 12/05/22 14:50 174/75 96 12/05/22 14:42 69 18 174/75 97 12/05/22 14:22 97.6 F 77 18 177/95 97 Intake and Output 12/05/22 12/05/22 12/05/22 06:59 14:59 22:59 Other: Weight 90.718 kg Results CBC & Chem 7: 12/05/22 19:13 12/05/22 15:38 Labs: Abnormal Lab Results - Last 24 Hours (Table) 12/05/22 12/05/22 12/05/22 Range/Units 15:38 15:38 19:13 RBC 4.18 L 4.22 L (4.30-5.90) m/uL Hgb 12.0 L 12.2 L (13.0-17.5) gm/dL Hct 37.5 L 37.8 L (39.0-53.0) % BUN 34 H (9-20) mg/dL
[2022-12-06] MEDS: SODIUM CHLORIDE 0.9% 1,000 ML IV SCH ×2 (06:10→19:47)
[2022-12-06 08:39] VITALS: RESP 16
[2022-12-06 08:50] LABS: Basophils % (A) 1 %; Eosinophils # (A) 0.1 k/uL (0-0.7); Eosinophils % (A) 2 %; HGB 12.5 gm/dL (13.0-17.5); Lymphocytes # (A) 1.2 k/uL (1.0-4.8); Lymphocytes % (A) 19 %; MCH 28.4 pg (25.0-35.0); MCHC 31.2 g/dL (31.0-37.0); MCV 91.2 fL (80.0-100.0); Mean Platelet Volume 7.4; Monocytes # (A) 0.4 k/uL (0-1.0); Monocytes % (A) 6 %; Neutrophils # (A) 4.2 k/uL (1.3-7.7); Neutrophils % (A) 69 %; Platelet Count 233 k/uL (150-450); RBC 4.39 m/uL (4.30-5.90); RDW 13.6 % (11.5-15.5); WBC 6.1 k/uL (3.8-10.6)
[2022-12-06 09:00] LABS: Prothrombin Time 10.7 sec (9.0-12.0)
--- NOTE | 2022-12-06 11:06 | P.PN ---
Subjective Progress Note Date: 12/06/22 Hospital Course: 77-year-old male with a PMH of CAD status post 2 stents (4 years ago), hypertension, AAA (4 cms) and BPH status post TURP who presents to the emergency room with complaints of right lower extremity pain. The patient's evaluation from the emergency room was reviewed with CT angiogram of the right lower extremity showing occlusion of the common femoral artery extending approximately 5.6 with reconstitution with a high-grade stenosis of at least 70% of the distal superficial femoral artery. Laboratory evaluation was reviewed with WBC count 7.3, hemoglobin 12.2, sodium 139, potassium 4.3, BUN 34, creatinine 0.97, and glucose 87. Subjective: Patient seen and examined at bedside. No acute events overnight. Denies any chest pain, shortness of breath, abdominal pain, nausea, vomiting, diarrhea, constipation, or urinary complaints. Has right lower extremity pain with activity Pertinent positives and negatives as discussed above, a complete review of systems was performed and all other systems are negative. Vitals Signs Reviewed. General: non toxic, no distress, appears at stated age, normal weight Derm: no unusual rashes/lesions, warm Head: atraumatic, normocephalic, symmetric Eyes: EOMI, no lid lag, anicteric sclera, pupils equal round reactive to light ENT: Nose and ears atraumatic Neck: No cervical lymphadenopathy, trachea midline, supple Mouth: no lip lesion, mucus membranes moist Cardiovascular: S1S2 reg, no murmur, positive dorsalis pedis pulse bilateral, no edema Lungs: CTA bilateral, no rhonchi, no rales, no accessory muscle use Abdominal: soft, nontender to palpation, no guarding Ext: muscle strength 5 out of 5 in all 4 extremities grossly, no gross muscle atrophy, no contractures, Neuro: CN II-XI grossly intact, no gross focal neuro deficits, right lower extremity numbness distal to the mid robles Psych: Alert, oriented, appropriate affect Data Reviewed Today: Pertinent Labs: WBC 6.1, hemoglobin 12.5, PTT 39.7 Assessment and Plan: Active: Acute Right common femoral artery occlusion History of peripheral arterial disease Preoperative evaluation -Continue heparin infusion, monitor PTT, no active bleeding, daily CBC -Per NSQIP risk calculator, patient has an average risk of 9.7% for serious complication, 10.9% for any complication, above average risk of 7.7% for discharge to senior care rehab facility, about 0.9% risk of . ->4 METS -Cardiology consult pending for further cardiac clearance -Home medications reviewed and reconciled -Otherwise patient is medically optimized for surgery Chronic: CAD status post stents Hypertension Tobacco use AAA BPH DVT ppx: Heparin drip Code status: Full code Anticipated discharge place: Pending clinical course Anticipated discharge time: Pending clinical course Objective - Vital Signs Vital signs: Vital Signs Temp 98.1 F 12/06/22 04:00 Pulse 88 12/06/22 08:00 Resp 16 12/06/22 08:00 BP 141/85 12/06/22 08:00 Pulse Ox 96 12/06/22 08:00 FiO2 Intake & Output 12/05/22 12/06/22 12/06/22 18:59 06:59 18:59 Intake Total 70.215 127.857 Balance 70.215 127.857 Weight 90.718 kg 90.718 kg Intake: Intake, IV Titration 70.215 127.857 Amount Heparin Sod,Pork in 0.45% 70.215 127.857 NaCl 25,000 unit In 0.45 % NaCl 1 250ml.bag @ 12 UNITS/KG/HR 10.886 mls/hr IV .[id number] [facility] Rx#: [id number] Other: Voiding Method Self-Catheterization # Voids 1 - Labs CBC & Chem 7: 12/06/22 08:11 12/05/22 15:38 Labs: Abnormal Lab Results - Last 24 Hours (Table) 12/05/22 12/05/22 12/05/22 Range/Units 15:38 15:38 19:13 RBC 4.18 L 4.22 L (4.30-5.90) m/uL Hgb 12.0 L 12.2 L (13.0-17.5) gm/dL Hct 37.5 L 37.8 L (39.0-53.0) % APTT (22.0-30.0) sec BUN 34 H (9-20) mg/dL 12/05/22 12/05/22 12/06/22 Range/Units 19:13 23:42 08:11 RBC (4.30-5.90) m/uL Hgb 12.5 L (13.0-17.5) gm/dL Hct (39.0-53.0) % APTT 60.2 H 38.8 H (22.0-30.0) sec BUN (9-20) mg/dL 12/06/22 Range/Units 08:11 RBC (4.30-5.90) m/uL Hgb (13.0-17.5) gm/dL Hct (39.0-53.0) % APTT 39.7 H (22.0-30.0) sec BUN (9-20) mg/dL
[2022-12-06 12:02] LABS: Magnesium 1.9 mg/dL (1.6-2.3)
[2022-12-06] MEDS: amLODIPine 5 MG TAB PO SCH (12:13)
--- NOTE | 2022-12-06 14:03 | P.CRDCN ---
History of Present Illness Consult date: 12/06/22 Consult reason: pre-op evaluation History of present illness: The patient is a 77-year-old male who presented to the hospital with right lower extremity discomfort. CT angiogram of right lower extremity showed occlusion of the common femoral artery and high-grade stenosis of the distal SFA. The patient was seen and evaluated by vascular surgery who plans on femoral endarterectomy and is seeking preoperative clearance with his cardiac history. DIAGNOSTICS: Chest x-ray shows Sinus rhythm with PACs Telemetry shows sinus mechanism without arrhythmias overnight Lab data: WBC 6.1, hemoglobin 12.5, hematocrit 40.0, platelet 233, sodium 139, p otassium 4.3, BUN 34, creatinine 0.97, magnesium 1.7, AST 31, ALT 29 Vital signs: Blood pressure 141/85, pulse 88, respiratory rate 16, SpO2 96% on room air PAST MEDICAL HISTORY: Coronary artery disease with prior stenting, hypertension, abdominal aortic aneurysm, BPH REVIEW OF SYSTEMS: No fever or chills. No cough or expectoration. No diaphoresis. Patient denies headache, dizziness, blurred vision, double vision. Patient denies any stomach discomfort. No nausea, vomiting. No hematochezia. No hematemesis. Denies any black stools or blood in his stools. Denies dysuria or hematuria. No muscle weakness or numbness. Positive for right lower extremity discomfort, notably in the right calf. No chest pain or chest pressure. No difficulty breathing. PHYSICAL EXAMINATION: This is a 77-year-old male in no apparent distress at the time of my examination. HEENT: Head is atraumatic, normocephalic. Pupils are equal, round. Sclerae anicteric. Conjunctivae are clear. Mucous membranes of the mouth are moist. Neck is supple. There is no jugular venous distention. No carotid bruit is heard. CHEST EXAMINATION: Lungs are clear to auscultation. No chest wall tenderness is noted on palpation or with deep breathing. HEART EXAMINATION: Heart regular rate and rhythm. S1, S2 heard. No murmurs, gal lops or rub. ABDOMEN: Soft, nontender. Bowel sounds are heard. No organomegaly noted. EXTREMITIES: 2+ peripheral pulses with no evidence of peripheral edema and no calf tenderness noted. NEUROLOGIC EXAMINATION: Patient is awake, alert and oriented x3. FINAL ASSESSMENT AND PLAN: Peripheral vascular disease, right common femoral artery occlusion and severe disease and right SFA Preoperative clearance prior to femoral endarterectomy History of CAD History of hypertension History of hyperlipidemia History of abdominal aortic aneurysm PLAN: Start amlodipine 5 mg daily for hypertension Echocardiogram and Doppler study to assess heart structure and function prior to general anesthesia Further recommendations will be on clinical course I am dictating on behalf of Dr Dino Cox's history/physical and assessment/plan. Past Medical History Past Medical History: Cancer, Deep Vein Thrombosis (DVT), Hypertension, Osteoarthritis (OA) Additional Past Medical History / Comment(s): Other Hx: Skin cancer-basal cell on face-surgically removed, arthiritis bilateral hands & bilateral knees, bursitis bilateral hips-responded well to injections, vitamin D deficiency, urethral stricture tx surgically with laser-pt able to urinate but does not completely empty bladder so he self caths once or twice a day, UTIs prior to self cathing. History of Any Multi-Drug Resistant Organisms: None Reported Past Surgical History: Hernia Repair, Joint Replacement, Orthopedic Surgery, Tonsillectomy Additional Past Surgical History / Comment(s): skin cancers removed from face, total L knee- needs a total R knee-scheduled for 02/26/16, Multiple arthroscopies of bilateral knees, R hand fx surgically repaired-steel plate and pin in little finger since removed, L ankle fracture with surgical repair. Bilateral eye surgery for glass shard removal. Past Anesthesia/Blood Transfusion Reactions: No Reported Reaction Additional Past Anesthesia/Blood Transfusion Reaction / Comment(s): Pt has never recieved blood. Past Psychological History: No Psychological Hx Reported Smoking Status: Never smoker Past Alcohol Use History: None Reported Past Drug Use History: None Reported - Past Family History Father Additional Family Medical History / Comment(s): Father served in [employer] and came home with mental health issues. He was an alcoholic and suddenly at the age of 48 yrs. Mother Family Medical History: Dementia Additional Family Medical History / Comment(s): Mother passed at age 94yrs. She had slight dementia starting. Medications and Allergies Home Medications Medication Instructions Recorded Confirmed Type Vitamin B Complex 1 tab PO DAILY 07/13/14 12/05/22 History Vitamin E (Dl,Tocopheryl Acet) 400 unit PO DAILY 07/13/14 12/05/22 History [Vitamin E (400 Iu = 180 mg)] atenoloL 25 mg PO HS 02/13/16 12/05/22 History Aspirin EC [Ecotrin Low Dose] 81 mg PO DAILY 06/16/22 12/05/22 History Ezetimibe [Zetia] 10 mg PO HS 06/16/22 12/05/22 History Magnesium Oxide [Magox 400] 400 mg PO DAILY 14 Days #14 tablet 06/16/22 12/05/22 Rx Meloxicam [Mobic] 7.5 mg PO BID 06/16/22 12/05/22 History Rosuvastatin Calcium 5 mg PO HS 06/16/22 12/05/22 History atenoloL 50 mg PO DAILY 06/16/22 12/05/22 History lisinopriL [Prinivil] 20 mg PO DAILY 06/16/22 12/05/22 History traZODone HCL [Desyrel] 75 mg PO HS 06/16/22 12/05/22 History Cholecalciferol [Vitamin D3 (125 250 mcg PO BID 12/05/22 12/05/22 History Mcg = 5000 Iu)] Ibuprofen [Motrin] 800 mg PO TID PRN 12/05/22 12/05/22 History Melatonin 10 mg PO HS 12/05/22 12/05/22 History Omeprazole [PriLOSEC] 40 mg PO DAILY 12/05/22 12/05/22 History Allergies Allergy/AdvReac Type Severity Reaction Status Date / Time No Known Allergies Allergy Verified 12/05/22 17:22 Physical Exam Vitals: Vital Signs Temp Pulse Pulse Pulse Resp BP BP 12/06/22 12:00 92 16 180/89 12/06/22 08:00 88 16 141/85 12/06/22 04:00 98.1 F 78 18 138/63 12/06/22 00:10 98.2 F 70 19 145/66 12/05/22 22:57 98.0 F 75 19 165/79 12/05/22 19:59 98.4 F 66 18 182/87 12/05/22 19:10 70 17 177/91 12/05/22 18:30 174/76 12/05/22 18:10 76 16 174/76 12/05/22 18:00 185/92 12/05/22 17:31 97.7 F 63 19 185/92 12/05/22 17:00 172/89 12/05/22 16:30 163/83 12/05/22 16:00 168/78 12/05/22 15:30 70 146/78 12/05/22 15:00 174/75 12/05/22 14:50 174/75 12/05/22 14:42 69 18 174/75 12/05/22 14:22 97.6 F 77 18 177/95 Pulse Ox 12/06/22 12:00 95 12/06/22 08:00 96 12/06/22 04:00 94 L 12/06/22 00:10 96 12/05/22 22:57 95 12/05/22 19:59 96 12/05/22 19:10 97 12/05/22 18:30 98 12/05/22 18:10 96 12/05/22 18:00 12/05/22 17:31 96 12/05/22 17:00 98 12/05/22 16:30 96 12/05/22 16:00 95 12/05/22 15:30 94 L 12/05/22 15:00 96 12/05/22 14:50 96 12/05/22 14:42 97 12/05/22 14:22 97 Intake and Output 12/05/22 12/06/22 12/06/22 22:59 06:59 14:59 Intake Total 70.215 727.857 Balance 70.215 727.857 Intake: Intake, IV Titration 70.215 727.857 Amount Heparin Sod,Pork in 0.45% 70.215 127.857 NaCl 25,000 unit In 0.45 % NaCl 1 250ml.bag @ 12 UNITS/KG/HR 10.886 mls/hr IV .[id number] [facility] Rx#: [id number] Sodium Chloride 0.9% 1, 600 000 ml @ 75 mls/hr IV . [id number] [facility] Rx#:[id number] Other: Voiding Method Self-Catheterization Self-Catheterization Self-Catheterization # Voids 1 Weight 90.718 kg Results 12/06/22 08:11 12/05/22 15:38 Cardiac Enzymes 12/05/22 Range/Units 15:38 AST 31 (17-59) U/L Coagulation 12/05/22 12/05/22 12/06/22 Range/Units 19:13 23:42 08:11 PT 10.9 10.7 (9.0-12.0) sec APTT 60.2 H 38.8 H (22.0-30.0) sec 12/06/22 Range/Units 08:11 PT (9.0-12.0) sec APTT 39.7 H (22.0-30.0) sec CBC 12/05/22 12/05/22 12/06/22 Range/Units 15:38 19:13 08:11 WBC 6.7 7.3 6.1 (3.8-10.6) k/uL RBC 4.18 L 4.22 L 4.39 (4.30-5.90) m/uL Hgb 12.0 L 12.2 L 12.5 L (13.0-17.5) gm/dL Hct 37.5 L 37.8 L 40.0 (39.0-53.0) % Plt Count 242 227 233 (150-450) k/uL Comprehensive Metabolic Panel 12/05/22 Range/Units 15:38 Sodium 139 (137-145) mmol/L Potassium 4.3 (3.5-5.1) mmol/L Chloride 103 (98-107) mmol/L Carbon Dioxide 27 (22-30) mmol/L BUN 34 H (9-20) mg/dL Creatinine 0.97 (0.66-1.25) mg/dL Glucose 98 (74-99) mg/dL Calcium 9.1 (8.4-10.2) mg/dL AST 31 (17-59) U/L ALT 29 (4-49) U/L Alkaline Phosphatase 81 (38-126) U/L Total Protein 6.5 (6.3-8.2) g/dL Albumin 3.9 (3.5-5.0) g/dL Current Medications Generic Name Dose Route Start Last Admin Trade Name Freq PRN Reason Stop Dose Admin Acetaminophen 650 mg 12/05/22 18:10 Acetaminophen Tab 325 Mg Tab PO Q6HR PRN Mild Pain or Fever > 100.5 Amlodipine Besylate 5 mg 12/06/22 11:45 12/06/22 12:13 Amlodipine 5 Mg Tab PO 5 mg DAILY [facility] Administration Aspirin 81 mg 12/07/22 09:00 Aspirin 81 Mg PO DAILY [facility] Atenolol 25 mg 12/06/22 21:00 Atenolol 25 Mg Tab PO HS [facility] Atenolol 50 mg 12/07/22 09:00 Atenolol 50 Mg Tab PO DAILY [facility] Atorvastatin Calcium 10 mg 12/06/22 21:00 Atorvastatin 10 Mg Tab PO HS [facility] Cholecalciferol 250 mcg 12/06/22 21:00 Cholecalciferol 125 Mcg (5000 Iu) Tablet PO BID [facility] Ezetimibe 10 mg 12/06/22 21:00 Ezetimibe 10 Mg Tab PO HS [facility] Heparin Sodium (Porcine) 0 unit 12/05/22 17:36 12/06/22 10:44 Heparin Sodium 1,000 Un/Ml (10ml Vl) IV 2,250 unit PER PROTOCOL PRN Administration Low PTT Protocol Heparin Sodium/Sodium Chloride 250 mls @ 10.886 mls/hr 12/05/22 17:45 12/06/22 10:38 25,000 unit/ Sodium Chloride IV 16 units/kg/hr .[id number] [facility] 14.515 mls/hr Titration Protocol 12 UNITS/KG/HR Sodium Chloride 1,000 mls @ 75 mls/hr 12/05/22 18:15 12/06/22 06:10 Saline 0.9% IV 75 mls/hr .[id number] [facility] Administration Magnesium Oxide 400 mg 12/07/22 09:00 Magnesium Oxide 400 Mg Tab PO DAILY [facility] Melatonin 10 mg 12/06/22 21:00 Melatonin 5 Mg Tablet PO HS [facility] Miscellaneous Information 1 each 12/05/22 15:14 Rx Info: Iv Contrast Was Given 1 Each Misc MISCELLANE 12/07/22 15:17 DAILY PRN Per Protocol Naloxone HCl 0.2 mg 12/05/22 18:10 Naloxone 0.4 Mg/Ml 1 Ml Vial IV Q2M PRN Opioid Reversal Pantoprazole Sodium 40 mg 12/07/22 09:00 Pantoprazole 40 Mg Tablet PO DAILY [facility] Trazodone HCl 75 mg 12/06/22 21:00 Trazodone Hcl 50 Mg Tab PO HS [facility] Vitamin E 400 unit 12/07/22 09:00 Vitamin E (Dl,Tocopheryl Acet) 400 Unit (180 Mg) Cap PO DAILY [facility] Intake and Output 12/05/22 12/06/22 12/06/22 22:59 06:59 14:59 Intake Total 70.215 727.857 Balance 70.215 727.857 Intake: Intake, IV Titration 70.215 727.857 Amount Heparin Sod,Pork in 0.45% 70.215 127.857 NaCl 25,000 unit In 0.45 % NaCl 1 250ml.bag @ 12 UNITS/KG/HR 10.886 mls/hr IV .[id number] [facility] Rx#: [id number] Sodium Chloride 0.9% 1, 600 000 ml @ 75 mls/hr IV . [id number] [facility] Rx#:[id number] Other: Voiding Method Self-Catheterization Self-Catheterization Self-Catheterization # Voids 1 Weight 90.718 kg 12/06/22 08:11 12/05/22 15:38
--- NOTE | 2022-12-06 14:36 | P.PN ---
Subjective Progress Note Date: 12/06/22 Patient is evaluated. He is resting comfortably in bed and indicates his foot feels improved. He can now walk on it to the restroom. He did undergo arterial Doppler study which I reviewed and he has undergone an echocardiogram. Objective - Vital Signs Vital signs: Vital Signs Temp 98.1 F 12/06/22 04:00 Pulse 92 12/06/22 12:00 Resp 16 12/06/22 12:00 BP 180/89 12/06/22 12:00 Pulse Ox 95 12/06/22 12:00 FiO2 Intake & Output 12/05/22 12/06/22 12/06/22 18:59 06:59 18:59 Intake Total 70.215 727.857 Balance 70.215 727.857 Weight 90.718 kg 90.718 kg Intake: Intake, IV Titration 70.215 727.857 Amount Heparin Sod,Pork in 0.45% 70.215 127.857 NaCl 25,000 unit In 0.45 % NaCl 1 250ml.bag @ 12 UNITS/KG/HR 10.886 mls/hr IV .[id number] [facility] Rx#: [id number] Sodium Chloride 0.9% 1, 600 000 ml @ 75 mls/hr IV . [id number] [facility] Rx#:[id number] Other: Voiding Method Self-Catheterization Self-Catheterization # Voids 1 - Exam Patient remains clinically unchanged. I discussed with the patient the need for cardiac clearance prior to any elective surgical intervention. Cardiac evaluation is ongoing at this time. - Labs CBC & Chem 7: 12/06/22 08:11 12/05/22 15:38 Labs: Abnormal Lab Results - Last 24 Hours (Table) 12/05/22 12/05/22 12/05/22 Range/Units 15:38 15:38 19:13 RBC 4.18 L 4.22 L (4.30-5.90) m/uL Hgb 12.0 L 12.2 L (13.0-17.5) gm/dL Hct 37.5 L 37.8 L (39.0-53.0) % APTT (22.0-30.0) sec BUN 34 H (9-20) mg/dL 12/05/22 12/05/22 12/06/22 Range/Units 19:13 23:42 08:11 RBC (4.30-5.90) m/uL Hgb 12.5 L (13.0-17.5) gm/dL Hct (39.0-53.0) % APTT 60.2 H 38.8 H (22.0-30.0) sec BUN (9-20) mg/dL 12/06/22 Range/Units 08:11 RBC (4.30-5.90) m/uL Hgb (13.0-17.5) gm/dL Hct (39.0-53.0) % APTT 39.7 H (22.0-30.0) sec BUN (9-20) mg/dL Assessment and Plan Assessment: 1: Right common femoral artery occlusive disease with secondary arterial insufficiency. 2: Remote history of tobacco use. 3: History of coronary disease status post cardiac stent placement. Plan: 1: Patient will be scheduled for femoral endarterectomy once cardiac clearance has been obtained. I've reached out to primary service in this regard. 2: Continue supportive care. Time with Patient: Less than 30
--- NOTE | 2022-12-06 17:36 | CA ---
Transthoracic Echo Report Name: Rusty Spaulding Age: 77 Gender: M : 1945 Exam Date: 12/06/2022 13:42 Exam Location: [place] [facility] Ht (in): 68 Wt (lb): 200 Ordering Physician: Stephanie Sweeney Attending/Referring Phys: [id number], Zahra Field Clinical Engineer Rizwana García RDCS Procedure CPT: Indications: Preoperative clearance Cardiac Hx: Technical Quality: Fair Contrast 1: Total Dose (mL): Contrast 2: Total Dose (mL): MEASUREMENTS (Male / Female) Normal Values 2D ECHO LV Diastolic Diameter PLAX 3.3 cm 4.2 - 5.9 / 3.9 - 5.3 cm LV Systolic Diameter PLAX 1.8 cm IVS Diastolic Thickness 1.6 cm 0.6 - 1.0 / 0.6 - 0.9 cm LVPW Diastolic Thickness 1.8 cm 0.6 - 1.0 / 0.6 - 0.9 cm LV Relative Wall Thickness 1.0 RV Internal Dim ED PLAX 2.8 cm LA Volume 85.3 cm??? 18 - 58 / 22 - 52 cm??? M-MODE Aortic Root Diameter MM 3.2 cm LA Systolic Diameter MM 4.7 cm LA Ao Ratio MM 1.5 AV Cusp Separation MM 1.1 cm DOPPLER AV Peak Velocity 231.4 cm/s AV Peak Gradient 21.4 mmHg AV Mean Velocity 180.4 cm/s AV Mean Gradient 13.7 mmHg AV Velocity Time Integral 42.6 cm AI Peak Velocity 363.2 cm/s AI Peak Gradient 52.8 mmHg AI Pressure Half Time 447.7 ms LVOT Peak Velocity 133.0 cm/s LVOT Peak Gradient 7.1 mmHg LVOT Velocity Time Integral 32.9 cm MV Area PHT 2.4 cm??? Mitral E Point Velocity 89.3 cm/s Mitral A Point Velocity 148.5 cm/s Mitral E to A Ratio 0.6 MV Deceleration Time 322.0 ms MV E' Velocity 4.7 cm/s Mitral E to MV E' Ratio 19.0 FINDINGS Left Ventricle Moderately increased left ventricular wall thickness. Left ventricular cavity size normal. Normal Left ventricular size, wall thickness, systolic function with no obvious regional wall motion abnormalities. Normal Left ventricular diastolic filling pattern. Left ventricular ejection fraction is estimated at 55-60 %. Right Ventricle Normal right ventricular size and function. Right ventricular systolic pressure within normal limits. Right Atrium Normal right atrial size. Left Atrium Severely increased left atrial volume. Mildly increased left atrial area. Mitral Valve Structurally normal mitral valve. Mitral valve thickened. Mild mitral annular calcification. Mild mitral regurgitation. Aortic Valve No aortic stenosis. Aortic valve sclerosis. Trace aortic regurgitation. Tricuspid Valve Structurally normal tricuspid valve. Mild tricuspid regurgitation. Pulmonic Valve Trace pulmonic regurgitation. Pericardium No pericardial effusion. Aorta Normal size aortic root and proximal ascending aorta. CONCLUSIONS Normal LV systolic function Left atrial enlargement Previewed by: Dr. Dino Cox MD (Electronically Signed) Final Date: 06 Dec 2022 17:35
[2022-12-06] MEDS: HEPARIN SOD,PORK IN 0.45% NACL 25,000 UNIT in 0.45% NACL 1 250ML.BAG IV SCH (19:47)
[2022-12-06] MEDS ORDERED: ATORVASTATIN 10 MG TAB PO SCH (21:00)
[2022-12-06] MEDS ORDERED: ATORVASTATIN 40 MG TAB PO SCH (21:00)
[2022-12-06] MEDS ORDERED: MELATONIN 5 MG TABLET PO SCH (21:00)
[2022-12-06] MEDS ORDERED: EZETIMIBE 10 MG TAB PO SCH (21:00)
[2022-12-06] MEDS ORDERED: traZODone HCL 50 MG TAB PO SCH (21:00)
[2022-12-06] MEDS ORDERED: atenoloL 25 MG TAB PO SCH (21:00)
[2022-12-06 21:32] VITALS: TEMP 97.9
[2022-12-07 07:36] LABS: Chol/HDL Ratio 2.86 Ratio; LDL Cholesterol,Calculated 82.6 mg/dL (0.0-131.0)
[2022-12-07] MEDS: amLODIPine 5 MG TAB PO SCH (08:10)
[2022-12-07] MEDS: SODIUM CHLORIDE 0.9% 1,000 ML IV SCH (08:11)
[2022-12-07] MEDS ORDERED: PANTOPRAZOLE 40 MG TABLET PO SCH (09:00)
[2022-12-07] MEDS ORDERED: VITAMIN E (DL,TOCOPHERYL ACET) 400 UNIT (180 MG) CAP PO SCH (09:00)
[2022-12-07] MEDS ORDERED: ASPIRIN 81 MG PO SCH (09:00)
[2022-12-07] MEDS ORDERED: NON FORMULARY DRUG (Vitamin B Complex [Vitamin B Complex] 1 EACH Capsule) PO SCH (09:00)
[2022-12-07] MEDS ORDERED: MAGNESIUM OXIDE 400 MG TAB PO SCH (09:00)
[2022-12-07] MEDS ORDERED: atenoloL 50 MG TAB PO SCH (09:00)
[2022-12-07] MEDS ORDERED: CHOLECALCIFEROL 125 MCG (5000 IU) TABLET PO SCH (09:00)
[2022-12-07 12:27] VITALS: BP 135/66; PULSE 78
--- NOTE | 2022-12-07 12:42 | P.DS ---
Providers Date of admission: 12/05/22 18:13 Expected date of discharge: 12/07/22 Attending physician: Rob Lewis MD Consults: 12/05/22 18:10 Consult Physician Routine Consulting Provider: Jef Loredo Consult Reason/Comments: femoral art. occlusion Do you want consulting provider notified?: Already Contacted 12/06/22 10:41 Consult Physician Routine Consulting Provider: Dino Cox Consult Reason/Comments: cardio clearence for surgery Do you want consulting provider notified?: Already Contacted Primary care physician: Landy Farias [place] [facility] Hospital Course: Discharge Diagnosis: Acute Right common femoral artery occlusion History of peripheral arterial disease CAD status post stents Hypertension Tobacco use AAA BPH Hospital Course: 77-year-old male with a PMH of CAD status post 2 stents (4 years ago), hypertension, AAA (4 cms) and BPH status post TURP who presents to the emergency room with complaints of right lower extremity pain. The patient's evaluation from the emergency room was reviewed with CT angiogram of the right lower extremity showing occlusion of the common femoral artery extending approximately 5.6 with reconstitution with a high-grade stenosis of at least 70% of the distal superficial femoral artery. Laboratory evaluation was reviewed with WBC count 7.3, hemoglobin 12.2, sodium 139, potassium 4.3, BUN 34, creatinine 0.97, and glucose 87. Patient was admitted on heparin drip. Cardiology was consulted for perioperative evaluation. Echocardiogram showed normal LV systolic function. Patient to be discharged on aspirin and Plavix and statin. Follow-up closely with vascular surgery for outpatient elective revascularization. At the time of discharge, pain had resolved. Patient seen and examined at bedside. Vital signs reviewed and stable. General: non toxic, no distress, appears at stated age, normal weight Derm: no unusual rashes/lesions, warm Head: atraumatic, normocephalic, symmetric Eyes: EOMI, no lid lag, anicteric sclera, pupils equal round reactive to light ENT: Nose and ears atraumatic Neck: No cervical lymphadenopathy, trachea midline, supple Mouth: no lip lesion, mucus membranes moist Cardiovascular: S1S2 reg, no murmur, positive dorsalis pedis pulse bilateral, no edema Lungs: CTA bilateral, no rhonchi, no rales, no accessory muscle use Abdominal: soft, nontender to palpation, no guarding Ext: muscle strength 5 out of 5 in all 4 extremities grossly, no gross muscle atrophy, no contractures, Neuro: CN II-XI grossly intact, no gross focal neuro deficits, right lower extremity numbness distal to the mid robles Psych: Alert, oriented, appropriate affect A total of 37 minutes of time were spent preparing this complex discharge summary. Patient was discharged on 12/07/22 at 12:24. Patient Condition at Discharge: Stable Plan - Discharge Summary Discharge Rx Participant: No New Discharge Prescriptions: New Clopidogrel [Plavix] 75 mg PO DAILY #30 tablet amLODIPine [Norvasc] 5 mg PO DAILY #60 tab Continue Vitamin E (Dl,Tocopheryl Acet) [Vitamin E (400 Iu = 180 mg)] 400 unit PO DAILY Vitamin B Complex 1 tab PO DAILY atenoloL 25 mg PO HS Rosuvastatin Calcium 5 mg PO HS lisinopriL [Prinivil] 20 mg PO DAILY atenoloL 50 mg PO DAILY Ezetimibe [Zetia] 10 mg PO HS Magnesium Oxide [Magox 400] 400 mg PO DAILY 14 Days #14 tablet traZODone HCL [Desyrel] 75 mg PO HS Aspirin EC [Ecotrin Low Dose] 81 mg PO DAILY Omeprazole [PriLOSEC] 40 mg PO DAILY Melatonin 10 mg PO HS Cholecalciferol [Vitamin D3 (125 Mcg = 5000 Iu)] 250 mcg PO BID Discontinued Meloxicam [Mobic] 7.5 mg PO BID Ibuprofen [Motrin] 800 mg PO TID PRN PRN Reason: Pain Discharge Medication List Vitamin B Complex 1 tab PO DAILY 07/13/14 [History] Vitamin E (Dl,Tocopheryl Acet) [Vitamin E (400 Iu = 180 mg)] 400 unit PO DAILY 07/13/14 [History] atenoloL 25 mg PO HS 02/13/16 [History] Aspirin EC [Ecotrin Low Dose] 81 mg PO DAILY 06/16/22 [History] Ezetimibe [Zetia] 10 mg PO HS 06/16/22 [History] Magnesium Oxide [Magox 400] 400 mg PO DAILY 14 Days #14 tablet 06/16/22 [Rx] Rosuvastatin Calcium 5 mg PO HS 06/16/22 [History] atenoloL 50 mg PO DAILY 06/16/22 [History] lisinopriL [Prinivil] 20 mg PO DAILY 06/16/22 [History] traZODone HCL [Desyrel] 75 mg PO HS 06/16/22 [History] Cholecalciferol [Vitamin D3 (125 Mcg = 5000 Iu)] 250 mcg PO BID 12/05/22 [History] Melatonin 10 mg PO HS 12/05/22 [History] Omeprazole [PriLOSEC] 40 mg PO DAILY 12/05/22 [History] Clopidogrel [Plavix] 75 mg PO DAILY #30 tablet 12/07/22 [Rx] amLODIPine [Norvasc] 5 mg PO DAILY #60 tab 12/07/22 [Rx] Follow up Appointment(s)/Referral(s): Dino Cox MD [STAFF PHYSICIAN] - 4 Weeks Jef Loredo DO [Doctor of Osteopathic Medicine] - 1 Week Landy Dixon MD [Primary Care Provider] - 1-2 days Patient Instructions/Handouts: Peripheral Artery Disease (DC) Activity/Diet/Wound Care/Special Instructions: Please call vascular surgery on Thursday to make an appointment for . Discharge Disposition: HOME SELF-CARE
--- NOTE | 2022-12-07 13:19 | P.PN ---
Subjective Progress Note Date: 12/07/22 Patient is 77-year-old male presented to the hospital right lower extremity discomfort. CT angiogram of the right lower extremity showed occlusion of the common femoral artery and high-grade stenosis of the distal SFA. Cardiology was consulted for preoperative clearance prior to femoral endarterectomy. Echocardiogram revealed normal LV function without significant valvular abnormalities. The patient states he remains asymptomatic from the cardiac standpoint. No chest pain or chest pressure. No difficulty breathing. No dizziness or lightheadedness. He states that there is some minor improvement in the sensation in his right lower extremity. He remains on heparin drip. GENERAL: Well-appearing, well-nourished and in no acute distress. NECK: Supple without JVD or thyromegaly. LUNGS: Breath sounds clear to auscultation bilaterally. Respiration equal and unlabored. No wheezes, rales or rhonchi. HEART: Regular rate and rhythm without murmurs, rubs or gallops. S1 and S2 heard. EXTREMITIES: Normal range of motion, no edema. No clubbing or cyanosis. VITALS: Blood pressure 135/66, pulse 78, respiratory rate 16, SpO2 94% on room air TELEMETRY: Sinus rhythm overnight LABS: Hemoglobin A1c 5.6, magnesium 1.9, LDL 82, HDL 55, triglycerides 104 IMPRESSION: Peripheral vascular disease, right common femoral artery occlusion and severe disease in the right SFA Preoperative clearance prior to femoral endarterectomy History CAD History hypertension History of hyperlipidemia History of abdominal aortic aneurysm PLAN: The patient is cleared to proceed with surgery as clinically indicated Continue current medication regimen Outpatient follow-up with Dr. Cox in 4 weeks I am dictating on behalf of Dr Dino Cox's history/physical and assessment/plan. Objective - Vital Signs Vital signs: Vital Signs Temp 97.9 F 12/06/22 20:00 Pulse 78 12/07/22 12:00 Resp 16 12/07/22 12:00 BP 135/66 12/07/22 12:00 Pulse Ox 94 L 12/07/22 12:00 FiO2 Intake & Output 12/06/22 12/07/22 12/07/22 18:59 06:59 18:59 Intake Total 967.857 591.928 Balance 967.857 591.928 Intake: Intake, IV Titration 727.857 51.928 Amount Heparin Sod,Pork in 0.45% 127.857 51.928 NaCl 25,000 unit In 0.45 % NaCl 1 250ml.bag @ 12 UNITS/KG/HR 10.886 mls/hr IV .[id number] [facility] Rx#: [id number] Sodium Chloride 0.9% 1, 600 000 ml @ 75 mls/hr IV . [id number] [facility] Rx#:[id number] Oral 240 540 Other: Voiding Method Self-Catheterization Self-Catheterization Self-Catheterization # Voids 1 - Labs CBC & Chem 7: 12/06/22 08:11 12/05/22 15:38 Labs: Abnormal Lab Results - Last 24 Hours (Table) 12/06/22 12/07/22 Range/Units 17:31 08:45 APTT 52.0 H 60.5 H (22.0-30.0) sec
--- NOTE | 2022-12-08 15:36 | US ---
EXAMINATION TYPE: US arterial LE multi level DATE OF EXAM: 12/05/2022 7:49 PM CLINICAL INDICATION: Male, 77 years old with history of femoral occlusion; CT showed femoral occlusio n. Right leg pain. History of: Smoker: Previous Hypertension: Takes medication Diabetic: No Hyperlipidemia: Yes TIA/CVA: No Previous Vascular Surgery: No CAD: Yes IA: No Vascular Ulcers: No Gangrene: No Doppler Waveforms: Right: Biphasic and monophasic Left: Biphasic and monophasic Right Brachial Pressure: 177 Left Brachial Pressure: Deferred due to IV Ankle-Brachial Indices: Right: 0.3 Left: 1.3 Toe Brachial Indices: Right: 0.0 Left: 1.3 IMPRESSION: 1. Markedly abnormal right PAT is (TBI suggestive of severe diffuse atherosclerotic disease and multi level stenoses and occlusion. Correlate clinically. 2. Normal left PAT and TBI
== END 2022-12-07 13:25 | disposition home or self-care (01) | DRG 301 ==
LOC: EC 14:17 → 4SSUR 18:13 → 3SCARD 20:13
PROVIDERS: ADMIT Student in an Organized Health Care Education/Training Program; ATTEND Student in an Organized Health Care Education/Training Program
DX: I70.201 Unspecified atherosclerosis of native arteries of extremities, right leg (principal); Z87.891 Personal history of nicotine dependence; I25.10 Atherosclerotic heart disease of native coronary artery without angina pectoris; E78.5 Hyperlipidemia, unspecified; I10 Essential (primary) hypertension; I71.40 Abdominal aortic aneurysm, without rupture, unspecified; N40.0 Benign prostatic hyperplasia without lower urinary tract symptoms; M17.0 Bilateral primary osteoarthritis of knee; M19.042 Primary osteoarthritis, left hand; M19.041 Primary osteoarthritis, right hand; Z87.440 Personal history of urinary (tract) infections; Z90.79 Acquired absence of other genital organ(s); E55.9 Vitamin D deficiency, unspecified; Z85.828 Personal history of other malignant neoplasm of skin; Z96.653 Presence of artificial knee joint, bilateral; Z79.1 Long term (current) use of non-steroidal anti-inflammatories (NSAID); Z79.82 Long term (current) use of aspirin; Z79.899 Other long term (current) drug therapy; Z95.5 Presence of coronary angioplasty implant and graft
CPT/HCPCS: 36415; 80053; 80061; 83036; 83735; 85025; 85610; 85730; 93005; 93306; 93923; 96365; 96366; 99285

== ENCOUNTER 2022-12-12 05:40 | Inpatient (IN) | payer MEDICARE ==
[2022-12-09 10:03] VITALS: BMI 30.4
[2022-12-12] MEDS ORDERED: DEXAMETHASONE SOD PHOSPHATE 4 MG/ML 1 ML VIAL IV ONE (05:56)
[2022-12-12] MEDS ORDERED: ONDANSETRON 4 MG/2 ML VIAL IVP ONE (05:56)
[2022-12-12] MEDS ORDERED: MIDAZOLAM 2 MG/2 ML VIAL IV PRN (05:56)
[2022-12-12] MEDS: LACTATED RINGERS 1,000 ML IV SCH (06:40)
[2022-12-12] MEDS ORDERED: HYDROmorphone 0.5 MG/0.5 ML SYRINGE IVP PRN (07:00)
[2022-12-12] MEDS ORDERED: PHENYLEPHRINE-0.9% NACL SYG 1,000 MCG/10 ML SYRINGE ONE (07:25)
[2022-12-12] MEDS ORDERED: GLYCOPYRROLATE 0.2 MG/ML 2 ML VIAL ONE (07:25)
[2022-12-12] MEDS ORDERED: SUCCINYLCHOLINE CHLORIDE 200 MG/10 ML VIAL IV ONE (07:25)
[2022-12-12] MEDS ORDERED: ROCURONIUM 10 MG/ML (5 ML VIAL) IV ONE (07:25)
[2022-12-12] MEDS ORDERED: PROPOFOL 10 MG/ML 20 ML VIAL IV ONE (07:25)
[2022-12-12] MEDS ORDERED: NEOSTIGMINE 1 MG/ML 10 ML VIAL ONE (07:25)
[2022-12-12] MEDS ORDERED: LIDOCAINE 2% INJ 20 MG/ML (2 ML VIAL) ONE (07:25)
[2022-12-12] MEDS ORDERED: MIDAZOLAM 2 MG/2 ML VIAL ONE (07:25)
[2022-12-12] MEDS ORDERED: fentaNYL (PF) 50 MCG/ML 2 ML AMP ONE (07:25)
[2022-12-12] MEDS ORDERED: HYDROmorphone (PF) 1 MG/ML ONE (07:25)
[2022-12-12] MEDS ORDERED: PROTAMINE SULFATE 10 MG/ML 5 ML VIAL IV ONE (07:25)
[2022-12-12] MEDS ORDERED: HEPARIN SODIUM,PORCINE 10,000 UNIT/ML 1 ML VIAL ONE (07:25)
[2022-12-12] MEDS ORDERED: HEPARIN SODIUM,PORCINE 10,000 UNIT in SODIUM CHLORIDE 0.9% 1,000 ML IRRIGATION ONE (08:07)
[2022-12-12] MEDS ORDERED: ceFAZolin 2 GM in SODIUM CHLORIDE 0.9% 500 ML 500 ML IRRIGATION ONE (08:08)
[2022-12-12] MEDS ORDERED: LACTATED RINGERS 1,000 ML IV ONE ×2 (08:11→09:42)
[2022-12-12] MEDS ORDERED: GELATIN SPONGE,ABSORB (LARGE) 1 EACH SPONGE MISCELLANE ONE (08:54)
[2022-12-12] MEDS ORDERED: THROMBIN (BOVINE) 5,000 UNIT VIAL MISCELLANE ONE (08:55)
--- NOTE | 2022-12-12 10:05 | P.OP ---
Date of Procedure: 12/12/22 Preoperative Diagnosis: Right common femoral artery occlusion with secondary lifestyle limiting claudication and ischemic rest pain right lower extremity. 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 Procedure(s) Performed: Right iliofemoral thromboendarterectomy with patch angioplasty. Anesthesia: PANCHOA Surgeon: Jef Loredo Estimated Blood Loss (ml): 75 Pathology: other (Atherosclerotic plaque) Condition: stable Disposition: floor Indications for Procedure: Patient is a 77-year-old male who presented with a chief complaint of ischemic rest pain of his right foot which was ongoing for 2-3 days prior to his initial presentation. He was placed on IV heparin initially. CTA was performed which demonstrated occlusion of the right common femoral artery. Also identified was right popliteal artery stenosis. Ankle brachial index on the right was approximately 0.35. Because of the symptoms in degree of ischemia patient is now offered thromboendarterectomy. The procedure, risk and benefits were discussed with the patient. Patient wished to proceed. Operative Findings: Plaque extending above the inguinal ligament into the external iliac artery as well as occlusion of the common femoral artery. Description of Procedure: Patient brought the upper and placed in supine position and administered general endotracheal anesthesia delivered by the department of anesthesiology. Richter catheter is placed to gravity drainage. Patient received intravenously administered prophylactic antibiotics in the perioperative phase. The right lower extremity was sterilely prepped and draped in usual manner. Skin incision was made overlying the right inguinal area and carried down through subcutaneous tissues. Eventually had a be extended cephalad due to the extent of plaquing in the external iliac artery subsequently encountered. The incision was deepened through the lymphatic layer laterally and this was mobilized medially. The femoral sheath was incised and the femoral artery was identified. No pulse was identified within the common femoral artery. The origins of the profundus as well as the superficial femoral arterial segments were identified dissected free of investing tissues and subsequently encircled Vesseloops. The dissection was then carried cephalad to the level inguinal ligament. Poor pulse characteristics were identified at that level and to gain more proximal exposure the inguinal ligament was partially divided and the dissection was carried along the external iliac artery to a point above the level of the plaque formation where an excellent pulse was noted to palpation. Crossing vein was doubly ligated with silk suture and divided. Vessel loop was utilized then to encircled the external iliac artery. The patient was systemically heparinized and after adequate circulation time vessel loops were drawn closed. Additional doses of heparin were administered based on ACT and subsequent ACT's. Longitudinal incision in the common femoral was made and extended proximally. Thrombus and plaque were encountered. The arteriotomy was extended proximally into the external iliac artery. Thromboendarterectomy was then performed. This was taken from the distal external iliac artery down to the bifurcation of the profundus and superficial femoral arteries. The plaque in the superficial femoral artery feathered off well without need for tacking sutures. Retraction endarterectomy was performed on the profundus segment resulting in very good back flow. Both the profundus and superficial femoral arteries were flushed with heparinized saline solution. The remaining luminal surface was inspected for any loose or free-floating material and this was removed where identified. Arteriotomy closure was performed with bovine pericardial patch and 6-0 Prolene suture placed in running fashion. Just prior to completion of the anastomotic line backbleeding through the superficial femoral as well as the profundus s egments were performed. The external iliac artery clamp was removed opened and no thrombus was retrieved and all air was expelled. The anastomotic line was then completed. Backbleeding through the profundus and superficial femoral arteries were allowed to occur. Bleeding points were controlled was 6-0 Prolene suture. The superficial femoral artery was then occluded and the clamp on the external iliac was released flushing any potential debris into the profundus system. Flow was then restored into the superficial femoral artery. The patient received 25 mg protamine to reverse the heparin effect. The wound was copiously irrigated. Hemostasis was adequate. Deep tissues were closed in multiple layers with Vicryl suture. Dermis was closed with 4-0 Monocryl placed in running intradermal fashion. Proper dressing was applied. Patient tolerated the procedure well. He was taken the recovery assessment and stable condition. Richter catheter is to be removed. The patient's right foot was pink at the time of surgical procedure completion.
[2022-12-12] MEDS ORDERED: MORPHINE SULFATE 2 MG/ML SYRINGE IVP PRN (10:10)
[2022-12-12] MEDS ORDERED: HYDROcodone/APAP 5-325MG 1 EACH TAB PO PRN (10:10)
[2022-12-12] MEDS ORDERED: SODIUM CHLORIDE 0.9% 1,000 ML IV SCH (10:15)
[2022-12-12] MEDS: ASPIRIN 81 MG PO SCH (12:49)
[2022-12-12] MEDS ORDERED: BENZOCAINE/MENTHOL LOZENG 1 EACH LOZENGE MUCOUS MEM PRN (14:46)
--- NOTE | 2022-12-12 14:54 | P.CONS ---
History of Present Illness - Reason for Consult Consult date: 12/12/22 Requesting physician: Jef Loredo - History of Present Illness Patient is a 77-year-old male with a history of peripheral arterial disease, and recent diagnosis of DVT, hypertension, dyslipidemia, and multiple other comorbid conditions who presented to the hospital for elective iliofemoral thrombectomy with patch angioplasty. He tolerated the procedure well with minimal blood loss and no immediate postoperative complications. Patient seen and examined at bedside. He complains of a sore throat after surgery. He states he is feeling well. He is able to have some feeling back a nd his right foot. He denies any lightheadedness, dizziness, nausea, vomiting. He denies any recent cough, cold, fever, flu. No other complaints currently. He does self cath and brought his supplies from home would prefer to use those. Vital signs reviewed General: nontoxic, no distress, appears at stated age Derm: warm, dry Eyes: EOMI, no lid lag ENT: Nose and ears atraumatic, no thrush, + pharyngeal erythema Cardiovascular: S1S2 reg, no murmur, positive dorsalis pedis pulse bilateral, no edema, capillary refill less than 2 seconds Lungs: clear to auscultation bilateral, no rhonchi, no rales, no wheeze, no accessory muscle use Abdominal: soft, nontender to palpation, no guarding, no appreciable organomegaly, normal bowel sounds Ext: no gross muscle atrophy, no contractures Neuro: CN II-XII grossly intact, no gross focal neuro deficits Psych: Alert, oriented, appropriate affect Assessment: 77-year-old male status post right iliofemoral thrombectomy with patch angioplasty Recent DVT Chronic urinary retention with intermittent self cath Hypertension Dyslipidemia Osteoarthritis Vitamin D deficiency Imaging: None Data Review: Vital signs reviewed and pulse 81, respirations 16, blood pressure 160/82, O2 sat 100% on 2 L nasal cannula Laboratory analysis reviewed from preoperative labs. On 12/06/22 hemoglobin 12.5, BUN 34, creatinine 0.97, sodium 139, potassium 4.3 Plan: -Home medications have been resumed which include Norvasc 5 mg oral daily, aspirin 81 mg daily, atenolol 25 mg at night and 50 mg in the morning, Lipitor 10 mg at night, vitamin D3, lisinopril 20 mg twice daily, melatonin 10 mg at night, Protonix 40 mg, and trazodone 75 mg at night -Xarelto 15 mg twice daily -Continue pain control with [place] 5/325 every 4 hours as needed for pain Thank you for allowing us to participate in the care of this pleasant patient. Do not hesitate to contact us with questions. Someone can be reached from the [facility] hospitalist group all hours of the day at [phone] or via perfect serve. This dictation was prepared using Leaf voice recognition software. Though every attempt is made to correct errors during during dictation some may still exist. Past Medical History Past Medical History: Cancer, Deep Vein Thrombosis (DVT), Hyperlipidemia, Hypertension, Osteoarthritis (OA), Pneumonia Additional Past Medical History / Comment(s): Hx Pneumonia in 1963. Hx basal cell skin cancer on face X2. Arthiritis bilateral hands and knees, bursitis bilateral hips-responded well to injections. Vitamin D Deficiency. Urethral stricture treated surgically with laser, able to urinate but does not completely empty bladder - self caths once or twice daily, hx UTIs prior to self cathing. History of Any Multi-Drug Resistant Organisms: None Reported Past Surgical History: Hernia Repair, Joint Replacement, Orthopedic Surgery, Tonsillectomy Additional Past Surgical History / Comment(s): Right ankle replacement, skin cancer removed from face X2, bilateral total knee replacements, multiple arthroscopies of bilateral knees, right hand and left ankle fractures, surgically repaired, steel plate and pin placed in little finger and later removed, bilateral eye surgery for glass shard removal, hernia repair X2. Past Anesthesia/Blood Transfusion Reactions: No Reported Reaction Additional Past Anesthesia/Blood Transfusion Reaction / Comm: Has never received blood. Past Psychological History: No Psychological Hx Reported Smoking Status: Former smoker Past Alcohol Use History: None Reported Additional Past Alcohol Use History / Comment(s): Smoked from [id number], quit for 8 yrs, resumed smoking in 1983 and quit for good in 2001. Past Drug Use History: None Reported - Past Family History Father Additional Family Medical History / Comment(s): Father served in [employer] [place] and came home with mental health issues. He was an alcoholic and suddenly at the age of 48. Mother Family Medical History: Dementia Additional Family Medical History / Comment(s): Mother passed at age 94. She had slight dementia starting. Medications and Allergies Home Medications Medication Instructions Recorded Confirmed Type Vitamin B Complex 1 tab PO DAILY 07/13/14 12/09/22 History Vitamin E (Dl,Tocopheryl Acet) 400 unit PO DAILY 07/13/14 12/09/22 History [Vitamin E (400 Iu = 180 mg)] atenoloL 25 mg PO HS 02/13/16 12/09/22 History Aspirin EC [Ecotrin Low Dose] 81 mg PO DAILY 06/16/22 12/09/22 History Magnesium Oxide [Magox 400] 400 mg PO DAILY 14 Days #14 tablet 06/16/22 12/09/22 Rx Rosuvastatin Calcium 5 mg PO HS 06/16/22 12/09/22 History atenoloL 50 mg PO QAM 06/16/22 12/09/22 History lisinopriL [Prinivil] 20 mg PO BID 06/16/22 12/09/22 History traZODone HCL [Desyrel] 75 mg PO HS 06/16/22 12/09/22 History Cholecalciferol [Vitamin D3 (125 250 mcg PO BID 12/05/22 12/09/22 History Mcg = 5000 Iu)] Melatonin 10 mg PO HS 12/05/22 12/09/22 History Omeprazole [PriLOSEC] 40 mg PO DAILY 12/05/22 12/09/22 History Clopidogrel [Plavix] 75 mg PO DAILY #30 tablet 12/07/22 12/09/22 Rx amLODIPine [Norvasc] 5 mg PO DAILY #60 tab 12/07/22 12/09/22 Rx Meloxicam [Mobic] 7.5 mg PO BID 12/09/22 12/09/22 History traMADol HCL 50 mg PO DIRECTED PRN 12/09/22 12/09/22 History Allergies Allergy/AdvReac Type Severity Reaction Status Date / Time No Known Allergies Allergy Verified 12/12/22 06:17 Physical Exam Osteopathic Statement: *. No significant issues noted on an osteopathic structural exam other than those noted in the History and Physical/Consult. Vitals: Vital Signs Temp Pulse Pulse Resp BP BP Pulse Ox 12/12/22 12:16 81 16 160/82 100 12/12/22 12:00 87 16 157/82 100 12/12/22 11:45 89 16 148/72 100 12/12/22 11:30 89 16 145/76 100 12/12/22 11:15 82 16 144/71 100 12/12/22 11:00 72 16 136/71 100 12/12/22 10:45 90 16 144/76 100 12/12/22 10:30 82 16 140/73 100 12/12/22 10:15 73 16 135/67 100 12/12/22 09:59 97 F L 79 12 141/72 94 L 12/12/22 07:10 149/72 146/72 12/12/22 06:25 98.2 F 81 18 151/72 96 Intake and Output 12/11/22 12/12/22 12/12/22 22:59 06:59 14:59 Intake Total 300 1752 Output Total 270 Balance 300 1482 Intake: IV 300 1752 Output: Urine 250 Estimated Blood Loss 20 Other: Weight 90.9 kg
[2022-12-12] MEDS ORDERED: MELATONIN 5 MG TABLET PO SCH (21:00)
[2022-12-12] MEDS ORDERED: traZODone HCL 50 MG TAB PO SCH (21:00)
[2022-12-12] MEDS ORDERED: atenoloL 25 MG TAB PO SCH (21:00)
[2022-12-12] MEDS ORDERED: ATORVASTATIN 10 MG TAB PO SCH (21:00)
[2022-12-12] MEDS: RIVAROXABAN 15 MG TAB PO SCH (21:51)
[2022-12-12] MEDS: CHOLECALCIFEROL 125 MCG (5000 IU) TABLET PO SCH (21:51)
[2022-12-12] MEDS: lisinopriL 20 MG TAB PO SCH (21:51)
[2022-12-13 01:12] VITALS: TEMP 98.2
[2022-12-13] MEDS: LACTATED RINGERS 1,000 ML IV SCH (07:15)
[2022-12-13] MEDS ORDERED: PANTOPRAZOLE 40 MG TABLET PO SCH (07:30)
--- NOTE | 2022-12-13 08:25 | P.DS ---
Providers Date of admission: 12/12/22 05:40 Expected date of discharge: 12/13/22 Attending physician: Jef Loredo DO Consults: 12/12/22 10:07 Consult Physician Routine Consulting Provider: Shelbi Escobar Consult Reason/Comments: medical management Do you want consulting provider notified?: Yes Primary care physician: [facility] Course: presented for right femoral endarterectomy which was completed 12/12/22 without issues. Did well and was tolerating diet, ambulating and stable for discharge the following day. Assessment: femoral artery occlusive disease s/p right femoral artery endartectomy Procedures: Right femoral artery endartectomy Patient Condition at Discharge: Good Plan - Discharge Summary Discharge Rx Participant: Yes New Discharge Prescriptions: No Action Vitamin E (Dl,Tocopheryl Acet) [Vitamin E (400 Iu = 180 mg)] 400 unit PO DAILY Vitamin B Complex 1 tab PO DAILY atenoloL 25 mg PO HS Rosuvastatin Calcium 5 mg PO HS lisinopriL [Prinivil] 20 mg PO BID atenoloL 50 mg PO QAM Magnesium Oxide [Magox 400] 400 mg PO DAILY 14 Days #14 tablet Clopidogrel [Plavix] 75 mg PO DAILY #30 tablet Meloxicam [Mobic] 7.5 mg PO BID traZODone HCL [Desyrel] 75 mg PO HS Aspirin EC [Ecotrin Low Dose] 81 mg PO DAILY Omeprazole [PriLOSEC] 40 mg PO DAILY Melatonin 10 mg PO HS Cholecalciferol [Vitamin D3 (125 Mcg = 5000 Iu)] 250 mcg PO BID amLODIPine [Norvasc] 5 mg PO DAILY #60 tab traMADol HCL 50 mg PO DIRECTED PRN PRN Reason: Pain Discharge Medication List Vitamin B Complex 1 tab PO DAILY 07/13/14 [History] Vitamin E (Dl,Tocopheryl Acet) [Vitamin E (400 Iu = 180 mg)] 400 unit PO DAILY 07/13/14 [History] atenoloL 25 mg PO HS 02/13/16 [History] Aspirin EC [Ecotrin Low Dose] 81 mg PO DAILY 06/16/22 [History] Magnesium Oxide [Magox 400] 400 mg PO DAILY 14 Days #14 tablet 06/16/22 [Rx] Rosuvastatin Calcium 5 mg PO HS 06/16/22 [History] atenoloL 50 mg PO QAM 06/16/22 [History] lisinopriL [Prinivil] 20 mg PO BID 06/16/22 [History] traZODone HCL [Desyrel] 75 mg PO HS 06/16/22 [History] Cholecalciferol [Vitamin D3 (125 Mcg = 5000 Iu)] 250 mcg PO BID 12/05/22 [History] Melatonin 10 mg PO HS 12/05/22 [History] Omeprazole [PriLOSEC] 40 mg PO DAILY 12/05/22 [History] Clopidogrel [Plavix] 75 mg PO DAILY #30 tablet 12/07/22 [Rx] amLODIPine [Norvasc] 5 mg PO DAILY #60 tab 12/07/22 [Rx] Meloxicam [Mobic] 7.5 mg PO BID 12/09/22 [History] traMADol HCL 50 mg PO DIRECTED PRN 12/09/22 [History] Follow up Appointment(s)/Referral(s): Jef Loredo DO [Doctor of Osteopathic Medicine] - 2 Weeks Activity/Diet/Wound Care/Special Instructions: No heavy lifting greater than 15 lbs x 2 weeks No driving x 48 hours Ok to shower. Keep incision site dry. Discharge Disposition: HOME SELF-CARE
[2022-12-13] MEDS ORDERED: amLODIPine 5 MG TAB PO SCH (09:00)
[2022-12-13] MEDS ORDERED: atenoloL 50 MG TAB PO SCH (09:00)
[2022-12-13] MEDS ORDERED: VITAMIN E (DL,TOCOPHERYL ACET) 400 UNIT (180 MG) CAP PO SCH (09:00)
[2022-12-13] MEDS ORDERED: NON FORMULARY DRUG (Vitamin B Complex [Vitamin B Complex] 1 EACH Capsule) PO SCH (09:00)
[2022-12-13] MEDS ORDERED: MAGNESIUM OXIDE 400 MG TAB PO SCH (09:00)
[2022-12-13] MEDS: RIVAROXABAN 15 MG TAB PO SCH (09:32)
[2022-12-13] MEDS: ASPIRIN 81 MG PO SCH (09:32)
[2022-12-13] MEDS: CHOLECALCIFEROL 125 MCG (5000 IU) TABLET PO SCH (09:32)
[2022-12-13] MEDS: lisinopriL 20 MG TAB PO SCH (09:33)
[2022-12-13 09:39] VITALS: BP 146/71; PULSE 93; RESP 16
--- NOTE | 2022-12-13 13:54 | P.PN ---
Subjective Progress Note Date: 12/13/22 (Delayed entry patient was seen at 0830) Patient is a 77-year-old male with a history of peripheral arterial disease, and recent diagnosis of DVT, hypertension, dyslipidemia, and multiple other comorbid conditions who presented to the hospital for elective iliofemoral thrombectomy with patch angioplasty. He tolerated the procedure well with minimal blood loss and no immediate postoperative complications. Patient seen and examined at bedside. He is doing well. He has been up and m oving around. His pain is mild except for when laying on his right side. Vital signs reviewed General: nontoxic, no distress, appears at stated age Cardiovascular: S1S2 reg, no murmur, positive posterior tibial pulse bilateral, Lungs: CTA bilateral, no rhonchi, no rales , no accessory muscle use Ext: no gross muscle atrophy, no edema, no contractures Neuro: CN II-XI grossly intact, no focal neuro deficits Psych: Alert, oriented, appropriate affect Assessment: 77-year-old male status post right iliofemoral thrombectomy with patch angioplasty Correction: Patient's last DVT was greater than 4 years ago and he has not been on anticoagulation for greater than 2 years. He denies any recent history of deep venous thrombus. 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 -Home medication reconciliation addressed. Patient will restart Mobic on 12/15. Objective - Vital Signs Vital signs: Vital Signs Temp 98.2 F 12/13/22 08:00 Pulse 93 12/13/22 08:00 Resp 16 12/13/22 08:00 BP 146/71 12/13/22 08:00 Pulse Ox 94 L 12/13/22 08:00 FiO2 Intake & Output 12/12/22 12/13/22 12/13/22 18:59 06:59 18:59 Intake Total 1991 118 Output Total 270 Balance 1722 118 Intake: IV 1752 Oral 240 118 Output: Urine 250 Estimated Blood Loss 20 Other: Voiding Method Self-Catheterization Self-Catheterization Self-Catheterization # Voids 1 2
== END 2022-12-13 09:56 | disposition home or self-care (01) | DRG 272 ==
LOC: 2ORMAIN 05:40 → 3SCARD 12:08
PROVIDERS: ADMIT Surgery; ATTEND Surgery
PROC: 04CK3ZZ Extirpation of Matter from Right Femoral Artery, Percutaneous Approach (ICD-10-PCS; 2022-12-12)
PROC: 04UK3JZ Supplement Right Femoral Artery with Synthetic Substitute, Percutaneous Approach (ICD-10-PCS; 2022-12-12)
PROC: 04CC3ZZ Extirpation of Matter from Right Common Iliac Artery, Percutaneous Approach (ICD-10-PCS; principal; 2022-12-12 07:30)
DX: I70.211 Atherosclerosis of native arteries of extremities with intermittent claudication, right leg (principal); Z79.02 Long term (current) use of antithrombotics/antiplatelets; E55.9 Vitamin D deficiency, unspecified; E78.5 Hyperlipidemia, unspecified; R33.8 Other retention of urine; I10 Essential (primary) hypertension; M19.90 Unspecified osteoarthritis, unspecified site; I77.1 Stricture of artery; M19.042 Primary osteoarthritis, left hand; M19.041 Primary osteoarthritis, right hand; M17.0 Bilateral primary osteoarthritis of knee; Z79.1 Long term (current) use of non-steroidal anti-inflammatories (NSAID); Z79.82 Long term (current) use of aspirin; Z79.899 Other long term (current) drug therapy; Z85.828 Personal history of other malignant neoplasm of skin; M70.72 Other bursitis of hip, left hip; M70.71 Other bursitis of hip, right hip; Z86.718 Personal history of other venous thrombosis and embolism; Z87.01 Personal history of pneumonia (recurrent); Z87.891 Personal history of nicotine dependence; Z96.653 Presence of artificial knee joint, bilateral; Z87.19 Personal history of other diseases of the digestive system
CPT/HCPCS: 86850; 86900; 86901; 88304; 88311

== ENCOUNTER → 2023-06-30 | Outpatient (CLI) | payer MEDICARE ==
[2023-06-30 16:50] LABS: Chol/HDL Ratio 3.15 Ratio
== END | disposition home or self-care (01) ==
LOC: LABWHC1 10:51
PROVIDERS: ATTEND Internal Medicine Clinical Cardiac Electrophysiology
DX: E78.5 Hyperlipidemia, unspecified (principal)
CPT/HCPCS: 36415; 80061

== ENCOUNTER 2023-08-24 19:32 | Inpatient (IN) | payer MEDICARE ==
--- NOTE | 2023-08-24 20:19 | ED ---
SOB HPI - General Source: patient, family, RN notes reviewed Mode of arrival: ambulatory Limitations: no limitations - History of Present Illness MD Complaint: shortness of breath <Pamela Byrd - Last Filed: 08/24/23 20:16> <Grayson Mosher - Last Filed: 08/24/23 22:57> - General Chief Complaint: Shortness of Breath Stated Complaint: Abnormal Labs Time Seen by Provider: 08/24/23 20:16 - History of Present Illness Initial Comments: This is a 77 year old male who presents to the emergency department for abnormal labs. Patient states that he's had increasing shortness of breath and difficulty taking a deep breath, prompting his doctor to order blood work. His rece ived a call that he had an elevated d-dimer, and advised they come to the emergency department to rule out a possible pulmonary embolus. Not currently taking blood thinners. (Pamela Byrd) Dictation was produced using [employer] dictation software. please excuse any grammatical, word or spelling errors. Chief Complaint: 77-year-old male with a history of DVT presents to the ER for elevated D-dimer History of Present Illness: Patient 77-year-old male he was told to come to the emergency department by his primary care doctor. He was seen there for shortness of breath. He was seen there initially last week for symptoms of upper respiratory infection. He had a follow-up today were D-dimer blood test was ordered. Patient states he has been off anticoagulation medications for the last week. He had a D-dimer drawn in the office was found to be elevated still to come to the emergency department. Patient does complain of some mild pleuritic chest pain and back pain. Patient however does not complain of any significant shortness of breath. No fever chills or night sweats. No cough The ROS documented in this emergency department record has been reviewed and confirmed by me. Those systems with pertinent positive or negative responses have been documented in the HPI. All other systems are other negative and/or noncontributory. (Grayson Mosher) - Related Data Home Medications Medication Instructions Recorded Confirmed Vitamin B Complex 1 tab PO DAILY 07/13/14 12/09/22 Vitamin E (Dl,Tocopheryl Acet) 400 unit PO DAILY 07/13/14 12/09/22 [Vitamin E (400 Iu = 180 mg)] atenoloL 25 mg PO HS 02/13/16 12/09/22 Aspirin EC [Ecotrin Low Dose] 81 mg PO DAILY 06/16/22 12/09/22 Rosuvastatin Calcium 5 mg PO HS 06/16/22 12/09/22 atenoloL 50 mg PO QAM 06/16/22 12/09/22 lisinopriL [Prinivil] 20 mg PO BID 06/16/22 12/09/22 traZODone HCL [Desyrel] 75 mg PO HS 06/16/22 12/09/22 Cholecalciferol [Vitamin D3 (125 250 mcg PO BID 12/05/22 12/09/22 Mcg = 5000 Iu)] Melatonin 10 mg PO HS 12/05/22 12/09/22 Omeprazole [PriLOSEC] 40 mg PO DAILY 12/05/22 12/09/22 traMADol HCL 50 mg PO DIRECTED PRN 12/09/22 12/09/22 Previous Rx's Medication Instructions Recorded Magnesium Oxide [Magox 400] 400 mg PO DAILY 14 Days #14 tablet 06/16/22 Clopidogrel [Plavix] 75 mg PO DAILY #30 tablet 12/07/22 amLODIPine [Norvasc] 5 mg PO DAILY #60 tab 12/07/22 Meloxicam [Mobic] 7.5 mg PO BID #0 12/13/22 Allergies Allergy/AdvReac Type Severity Reaction Status Date / Time No Known Allergies Allergy Verified 08/24/23 20:15 Review of Systems ROS Other: All systems not noted in ROS Statement are negative. <Pamela Byrd - Last Filed: 08/24/23 20:16> ROS Other: All systems not noted in ROS Statement are negative. <Grayson Mosher - Last Filed: 08/24/23 22:57> ROS Statement: Those systems with pertinent positive or pertinent negative responses have been documented in the HPI. Past Medical History Past Medical History: Cancer, Deep Vein Thrombosis (DVT), Hyperlipidemia, Hypertension, Osteoarthritis (OA), Pneumonia Additional Past Medical History / Comment(s): Hx Pneumonia in 1963. Hx basal cell skin cancer on face X2. Arthiritis bilateral hands and knees, bursitis bilateral hips-responded well to injections. Vitamin D Deficiency. Urethral stricture treated surgically with laser, able to urinate but does not completely empty bladder - self caths once or twice daily, hx UTIs prior to self cathing. History of Any Multi-Drug Resistant Organisms: None Reported Past Surgical History: Hernia Repair, Joint Replacement, Orthopedic Surgery, Tonsillectomy Additional Past Surgical History / Comment(s): Right ankle replacement, skin cancer removed from face X2, bilateral total knee replacements, multiple arthroscopies of bilateral knees, right hand and left ankle fractures, surgically repaired, steel plate and pin placed in little finger and later removed, bilateral eye surgery for glass shard removal, hernia repair X2. Past Anesthesia/Blood Transfusion Reactions: No Reported Reaction Additional Past Anesthesia/Blood Transfusion Reaction / Comment(s): Has never received blood. Past Psychological History: No Psychological Hx Reported Smoking Status: Former smoker Past Alcohol Use History: None Reported Additional Past Alcohol Use History / Comment(s): Smoked from [id number], quit for 8 yrs, resumed smoking in 1983 and quit for good in 2001. Past Drug Use History: None Reported - Past Family History Father Additional Family Medical History / Comment(s): Father served in [employer] and came home with mental health issues. He was an alcoholic and suddenly at the age of 48. Mother Family Medical History: Dementia Additional Family Medical History / Comment(s): Mother passed at age 94. She had slight dementia starting. <Pamela Byrd - Last Filed: 08/24/23 20:16> General Exam <Pamela Byrd - Last Filed: 08/24/23 20:16> <Grayson Mosher - Last Filed: 08/24/23 22:57> - General Exam Comments Initial Comments: Visual Physical Exam Vital signs reviewed General: Well-appearing, nontoxic, no acute distress. Head: Normocephalic, atraumatic Eyes: PERRLA, EOMI ENT: Airway patent Chest: Nonlabored breathing Skin: No visual rash, normal skin tone Neuro: Alert and oriented 3 Musculoskeletal: No gross abnormalities (Pamela Byrd) PHYSICAL EXAM: General Impression: Alert and oriented x3, not in acute distress HEENT: Normocephalic atraumatic, extra-ocular movements intact, pupils equal and reactive to light bilaterally, mucous membranes moist. Cardiovascular: Heart regular rate and rhythm Chest: Able to complete full sentences, no retractions, no tachypnea Abdomen: abdomen soft, non-tender, non-distended, no organomegaly Musculoskeletal: Pulses present and equal in all extremities, no peripheral edema Motor: no focal deficits noted Neurological: CN II-XII grossly intact, no focal motor or sensory deficits noted Skin: Intact with no visualized rashes Psych: Normal affect and mood (Grayson Mosher) Course Vital Signs 08/24/23 20:15 Temperature 98.8 F Pulse Rate 98 Respiratory 16 Rate Blood Pressure 143/84 O2 Sat by Pulse 95 Oximetry Medical Decision Making <Pamela Byrd - Last Filed: 08/24/23 20:16> - Lab Data Result diagrams: 08/24/23 20:27 08/24/23 20:27 <Grayson Mosher - Last Filed: 08/24/23 22:57> - Medical Decision Making I performed the QuickNote portion of this chart. Signed Pamela Byrd PA-C. (Pamela Byrd) Was pt. sent in by a medical professional or institution (DARYL Heller, PRODUCTION SUPPLY EQUIPMENT TENDER, urgent care, hospital, or care home...) When possible be specific @ -Instructed to come to the ER by primary care doctor Did you speak to anyone other than the patient for history (EMS, parent, family, police, friend...)? What history was obtained from this source @ -No Did you review nursing and triage notes (agree or disagree)? Why? @ -I reviewed and agree with nursing and triage notes Were old charts reviewed (outside hosp., previous admission, EMS record, old EKG, old radiological studies, urgent care reports/EKG's, care home records)? Report findings @ -No old charts were reviewed Differential Diagnosis (chest pain, altered mental status, abdominal pain women, abdominal pain men, vaginal bleeding, musculoskeletal, weakness, fever, dyspnea, syncope, headache, dizziness, GI bleed, back pain, seizure, CVA, palpatations, mental health)? @ -Differential Dyspnea: Coronary syndrome, arrhythmia, tamponade, asthma, COPD, pulmonary embolism, pneumonia, pneumothorax, pulmonary effusion, anaphylaxis, diabetic ketoacidosis, flailed chest, pulmonary contusion, diaphragmatic rupture, anemia, neuromuscular, this is not meant to be an all-inclusive list. EKG interpreted by me (3pts min.). @ -Pending X-rays interpreted by me (1pt min.). @ -None done CT interpreted by me (1pt min.). @ -CT angiography shows pulmonary embolisms. U/S interpreted by me (1pt. min.). @ -None done What testing was considered but not performed or refused? (CT, X-rays, U/S, labs)? Why? @ -None What meds were considered but not given or refused? Why? @ -None Did you discuss the management of the patient with other professionals (professionals i.e. , PA, PRODUCTION SUPPLY EQUIPMENT TENDER, lab, RT, psych nurse, director social service, superintendent overhead distribution, teacher, medical officer psychiatry, leather case finisher)? Give summary @ -Case discussed with hospitalist for admission Was smoking cessation discussed for >3mins.? @ -No Was critical care preformed (if so, how long)? @ -33 minutes Were there social determinants of health that impacted care today? How? (Home lessness, low income, unemployed, alcoholism, drug addiction, transportation, low edu. Level, literacy, decrease access to med. care, usp, rehab)? @ -No Was there de-escalation of care discussed even if they declined (Discuss DNR or withdrawal of care, Hospice)? DNR status @ -No What co-morbidities impacted this encounter? (DM, HTN, Smoking, COPD, CAD, Cancer, CVA, ARF, Chemo, Hep., AIDS, mental health diagnosis, sleep apnea, morbid obesity)? @ -None Was patient admitted / discharged? Hospital course, mention meds given and route, prescriptions, significant lab abnormalities, going to OR and other pertinent info. @ -77-year-old male presents emergency department with elevated D-dimer. Vital signs upon arrival are within acceptable limits. Patient is well-appearing at the bedside he is not hypotensive. Physical examination is benign. Laboratory evaluation obtained. CBC, coag panel metabolic panel is within acceptable limits. CT angiography shows multiple pulmonary emboli. Clinical presentation does not not suggest complicated pulmonary embolism. He does not have elevated troponin, hypotension or appear to be in acute distress. Patient started heparin will be admitted with consultation to pulmonology. Undiagnosed new problem with uncertain prognosis? @ -No Drug Therapy requiring intensive monitoring for toxicity (Heparin, Nitro, Insulin, Cardizem)? @ -No Were any procedures done? @ -No Diagnosis/symptom? Acute, or Chronic, or Acute on Chronic? Uncomplicated ( without systemic symptoms) or Complicated (systemic symptoms)? @ -Pulmonary embolism Side effects of treatment? @ -No Exacerbation, Progression, or Severe Exacerbation? @ -No Poses a threat to life or bodily function? How? (Chest pain, USA, PA, pneumonia, PE, COPD, DKA, ARF, appy, cholecystitis, CVA, Diverticulitis, Homicidal, Suicidal, threat to staff... and all critical care pts) @ -yes (Grayson Mosher) - Lab Data Lab Results 08/24/23 08/24/23 08/24/23 Range/Units 20:27 20:27 20:27 WBC 7.4 (3.8-10.6) k/uL RBC 4.56 (4.30-5.90) m/uL Hgb 13.9 (13.0-17.5) gm/dL Hct 41.3 (39.0-53.0) % MCV 90.6 (80.0-100.0) fL MCH 30.5 (25.0-35.0) pg MCHC 33.7 (31.0-37.0) g/dL RDW 13.6 (11.5-15.5) % Plt Count 254 (150-450) k/uL MPV 7.2 Neutrophils % 69 % Lymphocytes % 18 % Monocytes % 9 % Eosinophils % 2 % Basophils % 1 % Neutrophils # 5.1 (1.3-7.7) k/uL Lymphocytes # 1.3 (1.0-4.8) k/uL Monocytes # 0.7 (0-1.0) k/uL Eosinophils # 0.1 (0-0.7) k/uL Basophils # 0.0 (0-0.2) k/uL PT 10.2 (10.0-12.5) sec INR 0.9 (<1.2) APTT 22.6 (22.0-30.0) sec Sodium 137 (137-145) mmol/L Potassium 4.2 (3.5-5.1) mmol/L Chloride 105 (98-107) mmol/L Carbon Dioxide 23 (22-30) mmol/L Anion Gap 9 mmol/L BUN 26 H (9-20) mg/dL Creatinine 0.71 (0.66-1.25) mg/dL Est GFR (CKD-EPI)AfAm >90 (>60 ml/min/1.73 sqM) Est GFR (CKD-EPI)NonAf >90 (>60 ml/min/1.73 sqM) Glucose 116 H (74-99) mg/dL Calcium 9.4 (8.4-10.2) mg/dL Total Bilirubin 0.7 (0.2-1.3) mg/dL AST 24 (17-59) U/L ALT 45 (4-49) U/L Alkaline Phosphatase 80 (38-126) U/L Troponin I (0.000-0.034) ng/mL Total Protein 6.8 (6.3-8.2) g/dL Albumin 3.9 (3.5-5.0) g/dL 08/24/23 Range/Units 20:27 WBC (3.8-10.6) k/uL RBC (4.30-5.90) m/uL Hgb (13.0-17.5) gm/dL Hct (39.0-53.0) % MCV (80.0-100.0) fL MCH (25.0-35.0) pg MCHC (31.0-37.0) g/dL RDW (11.5-15.5) % Plt Count (150-450) k/uL MPV Neutrophils % % Lymphocytes % % Monocytes % % Eosinophils % % Basophils % % Neutrophils # (1.3-7.7) k/uL Lymphocytes # (1.0-4.8) k/uL Monocytes # (0-1.0) k/uL Eosinophils # (0-0.7) k/uL Basophils # (0-0.2) k/uL PT (10.0-12.5) sec INR (<1.2) APTT (22.0-30.0) sec Sodium (137-145) mmol/L Potassium (3.5-5.1) mmol/L Chloride (98-107) mmol/L Carbon Dioxide (22-30) mmol/L Anion Gap mmol/L BUN (9-20) mg/dL Creatinine (0.66-1.25) mg/dL Est GFR (CKD-EPI)AfAm (>60 ml/min/1.73 sqM) Est GFR (CKD-EPI)NonAf (>60 ml/min/1.73 sqM) Glucose (74-99) mg/dL Calcium (8.4-10.2) mg/dL Total Bilirubin (0.2-1.3) mg/dL AST (17-59) U/L ALT (4-49) U/L Alkaline Phosphatase (38-126) U/L Troponin I <0.012 (0.000-0.034) ng/mL Total Protein (6.3-8.2) g/dL Albumin (3.5-5.0) g/dL Disposition <Pamela Byrd - Last Filed: 08/24/23 20:16> Decision Time: 22:57 <Grayson Mosher - Last Filed: 08/24/23 22:57> Clinical Impression: Pulmonary emboli Disposition: ADMITTED IP TO THIS HOSP Condition: Fair Referrals: Landy Dixon MD [Primary Care Provider] - 1-2 days
[2023-08-24 21:15] LABS: INR 0.9 (<1.2); Partial Thromboplastin Time 22.6 sec (22.0-30.0); Prothrombin Time 10.2 sec (10.0-12.5)
[2023-08-24 21:19] LABS: Basophils % (A) 1 %; Eosinophils # (A) 0.1 k/uL (0-0.7); Eosinophils % (A) 2 %; HCT 41.3 % (39.0-53.0); HGB 13.9 gm/dL (13.0-17.5); Lymphocytes # (A) 1.3 k/uL (1.0-4.8); Lymphocytes % (A) 18 %; MCH 30.5 pg (25.0-35.0); MCHC 33.7 g/dL (31.0-37.0); MCV 90.6 fL (80.0-100.0); Mean Platelet Volume 7.2; Monocytes # (A) 0.7 k/uL (0-1.0); Monocytes % (A) 9 %; Neutrophils # (A) 5.1 k/uL (1.3-7.7); Neutrophils % (A) 69 %; Platelet Count 254 k/uL (150-450); RBC 4.56 m/uL (4.30-5.90); RDW 13.6 % (11.5-15.5); WBC 7.4 k/uL (3.8-10.6)
[2023-08-24 21:23] LABS: ALT 45 U/L (4-49); AST 24 U/L (17-59); African American GFR (CKD) >90 (>60 ml/min/1.73 sqM); Albumin 3.9 g/dL (3.5-5.0); Alkaline Phosphatase 80 U/L (38-126); Anion Gap 9 mmol/L; Blood Urea Nitrogen 26 mg/dL (9-20); Calcium 9.4 mg/dL (8.4-10.2); Carbon Dioxide 23 mmol/L (22-30); Chloride 105 mmol/L (98-107); Glucose 116 mg/dL (74-99); Non-African American GFR(CKD) >90 (>60 ml/min/1.73 sqM); Potassium 4.2 mmol/L (3.5-5.1); Sodium 137 mmol/L (137-145); Total Bilirubin 0.7 mg/dL (0.2-1.3); Total Protein 6.8 g/dL (6.3-8.2)
--- NOTE | 2023-08-24 22:39 | CT ---
EXAM: CT Angiography Chest With Intravenous Contrast CLINICAL HISTORY: ITS.REASON CT Reason: LAURENT, elevated d-dimer TECHNIQUE: Axial computed tomographic angiography images of the chest with intravenous contrast. CTDI is 23.77 mGy and DLP is 483.6 mGy-cm. This CT exam was performed using one or more of the following dose reduction techniques: automated exposure control, adjustment of the mA and/or kV according to patient size, and/or use of iterative reconstruction technique. MIP reconstructed images were created and reviewed. COMPARISON: No relevant prior studies available. FINDINGS: Pulmonary arteries: Positive for acute pulmonary emboli in the RIGHT segmental and subsegmental branches. Small pulmonary emboli are also present in the LEFT lower lobe subsegmental branches. No CT evidence of RIGHT heart strain. Aorta: No acute findings. No thoracic aortic aneurysm. Lungs: Atelectasis at the lung bases. No mass. Pleural space: Unremarkable. No significant effusion. No pneumothorax. Heart: Unremarkable. No cardiomegaly. No significant pericardial effusion. No evidence of RV dysfunction. Bones/joints: No acute fracture. No dislocation. Soft tissues: Unremarkable. Lymph nodes: Unremarkable. No enlarged lymph nodes. IMPRESSION: Positive for acute pulmonary emboli in the RIGHT segmental and subsegmental branches. Small pulmonary emboli are also present in the LEFT lower lobe subsegmental branches. No CT evidence of RIGHT heart strain. <MYCVCSECTION> Communications: 08/24/23 22:41 Call Doctor Regarding Other, called Dr. Paz on 08/24 22:41 (-05:00)
[2023-08-24] MEDS ORDERED: HEPARIN SODIUM 1,000 UN/ML (10ML VL) IV ONE (22:41)
[2023-08-24] MEDS ORDERED: HEPARIN SODIUM 1,000 UN/ML (10ML VL) IV PRN (22:41)
[2023-08-24] MEDS ORDERED: NALOXONE 0.4 MG/ML 1 ML VIAL IV PRN (22:53)
[2023-08-24] MEDS: HEPARIN SOD,PORK IN 0.45% NACL 25,000 UNIT in 0.45% NACL 1 250ML.BAG IV SCH (22:55)
[2023-08-25] MEDS: SODIUM CHLORIDE 0.9% 1,000 ML IV SCH ×2 (00:26→21:56)
--- NOTE | 2023-08-25 07:32 | P.CNPUL ---
History of Present Illness Consult date: 08/25/23 Requesting physician: Grayson Mosher Reason for consult: pulmonary embolism Chief complaint: Shortness of breath with exertion x 1 month and left sub- scapular back pain History of present illness: I am seeing this patient in new consultation today August 25, 2023 in the emergency room after he was sent in from his primary care provider for an elevated D-dimer. Patient is a 77-year-old white male with past medical history significant for right femoral artery occlusion, hyperlipidemia, hypertension, urinary retention, and multiple orthopedic surgeries. Patient was being evaluated by his primary care provider, Landy Dixon, for shortness of breath. Apparently, the patient has been in experiencing exertional shortness of breath for approximately 1 month. He also endorses left subscapular back pain for the last 2 days. He was noted to have elevated D-dimer outpatient on his lab work. He was sent to the emergency room yesterday evening to rule out possible pulmonary embolus. Chest CTA demonstrates multiple bilateral pulmonary emboli in the right segmental and subsegmental branches as well as left lower lobe subsegmental branches. No CT evidence of right-sided heart strain. Patient is hemodynamically stable. NT proBNP 167. Troponin less than 0.012. Patient is currently sitting up in bed, on room air, in no acute distress. Denies chest pain, hemoptysis, syncope. He does have an occasional dry cough. No fevers. No lower extremity swelling. He denies any previous history of DVT or PE. Denies any family history of DVT or PE. Denies recent prolonged travel, surg bibi, trauma. He is fairly active at home. Patient was started on the high intensity heparin protocol. CBC unremarkable. BMP also unremarkable. Normal saline infusing at 20 mL/h. Vital signs are stable. Review of Systems REVIEW OF SYSTEMS: CONSTITUTIONAL: Denies any recent significant weight loss or weight gain. EYES: Denies change in vision. EARS, NOSE, MOUTH, THROAT: Denies headaches, denies sore throat. Admits sinus pressure and nasal congestion that started a couple weeks ago and is now resolved. CARDIOVASCULAR: Denies chest pain, palpitations or syncopal episodes. RESPIRATORY: See HPI sis. GASTROINTESTINAL: Denies change in appetite, abdominal pain, nausea and vomiting, or diarrhea GENITOURINARY: Denies hematuria, denies infections. MUSKULOSKELETAL: Denies pain, denies swelling. INTEGUMENTARY: Denies rash, denies eczema. NEUROLOGICAL: Denies recent memory loss, no recent seizure activity. PSYCHIATRIC: Denies anxiety, denies depression. HEMATOLOGIC/LYMPHATIC: Denies anemia, denies enlarged lymph node Past Medical History Past Medical History: Cancer, Deep Vein Thrombosis (DVT), Hyperlipidemia, Hypertension, Osteoarthritis (OA), Pneumonia Additional Past Medical History / Comment(s): Hx Pneumonia in 1963. Hx basal cell skin cancer on face X2. Arthiritis bilateral hands and knees, bursitis bilateral hips-responded well to injections. Vitamin D Deficiency. Urethral stricture treated surgically with laser, able to urinate but does not completely empty bladder - self caths once or twice daily, hx UTIs prior to self cathing. History of Any Multi-Drug Resistant Organisms: None Reported Past Surgical History: Hernia Repair, Joint Replacement, Orthopedic Surgery, Tonsillectomy Additional Past Surgical History / Comment(s): Right ankle replacement, skin cancer removed from face X2, bilateral total knee replacements, multiple arthroscopies of bilateral knees, right hand and left ankle fractures, surgically repaired, steel plate and pin placed in little finger and later removed, bilateral eye surgery for glass shard removal, hernia repair X2. Past Anesthesia/Blood Transfusion Reactions: No Reported Reaction Additional Past Anesthesia/Blood Transfusion Reaction / Comment(s): Has never received blood. Past Psychological History: No Psychological Hx Reported Smoking Status: Former smoker Past Alcohol Use History: None Reported Additional Past Alcohol Use History / Comment(s): Smoked from [id number], quit for 8 yrs, resumed smoking in 1983 and quit for good in 2001. Past Drug Use History: None Reported - Past Family History Father Additional Family Medical History / Comment(s): Father served in [place] and came home with mental health issues. He was an alcoholic and suddenly at the age of 48. Mother Family Medical History: Dementia Additional Family Medical History / Comment(s): Mother passed at age 94. She had slight dementia starting. Medications and Allergies Home Medications Medication Instructions Recorded Confirmed Type Vitamin B Complex 1 tab PO DAILY 07/13/14 12/09/22 History Vitamin E (Dl,Tocopheryl Acet) 400 unit PO DAILY 07/13/14 12/09/22 History [Vitamin E (400 Iu = 180 mg)] atenoloL 25 mg PO HS 02/13/16 12/09/22 History Aspirin EC [Ecotrin Low Dose] 81 mg PO DAILY 06/16/22 12/09/22 History Magnesium Oxide [Magox 400] 400 mg PO DAILY 14 Days #14 tablet 06/16/22 12/09/22 Rx Rosuvastatin Calcium 5 mg PO HS 06/16/22 12/09/22 History atenoloL 50 mg PO QAM 06/16/22 12/09/22 History lisinopriL [Prinivil] 20 mg PO BID 06/16/22 12/09/22 History traZODone HCL [Desyrel] 75 mg PO HS 06/16/22 12/09/22 History Cholecalciferol [Vitamin D3 (125 250 mcg PO BID 12/05/22 12/09/22 History Mcg = 5000 Iu)] Melatonin 10 mg PO HS 12/05/22 12/09/22 History Omeprazole [PriLOSEC] 40 mg PO DAILY 12/05/22 12/09/22 History Clopidogrel [Plavix] 75 mg PO DAILY #30 tablet 12/07/22 12/09/22 Rx amLODIPine [Norvasc] 5 mg PO DAILY #60 tab 12/07/22 12/09/22 Rx traMADol HCL 50 mg PO DIRECTED PRN 12/09/22 12/09/22 History Meloxicam [Mobic] 7.5 mg PO BID #0 12/13/22 12/09/22 Rx Allergies Allergy/AdvReac Type Severity Reaction Status Date / Time No Known Allergies Allergy Verified 08/24/23 20:15 Physical Exam Vitals: Vital Signs Temp Pulse Resp BP Pulse Ox 08/25/23 04:04 90 18 99/54 96 08/25/23 02:30 87 18 119/69 96 08/25/23 00:00 91 20 114/73 96 08/24/23 20:15 98.8 F 98 16 143/84 95 Intake and Output 08/24/23 08/24/23 08/25/23 14:59 22:59 06:59 Other: Weight 90.718 kg GENERAL EXAM: Alert, 77-year-old white male, comfortable in no apparent distress. HEAD: Normocephalic and atraumatic EYES: Normal reaction of pupils, equal size. NOSE: Clear with pink turbinates. THROAT: No erythema or exudates. NECK: No masses, no JVD. CHEST: No chest wall deformity. LUNGS: Equal air entry with no crackles, wheeze, rhonchi or dullness. On room air. No conversational dyspnea or accessory muscle use.. CVS: S1 and S2 normal with no audible murmur, regular rhythm. No extra heart sounds ABDOMEN: No hepatosplenomegaly, active bowel sounds, no guarding or rigidity. SPINE: No scoliosis or deformity SKIN: No rashes CENTRAL NERVOUS SYSTEM: No focal deficits, tone is normal in all 4 extremities. EXTREMITIES: There is no peripheral edema, clubbing, or cyanosis. Peripheral pulses are intact. Results - Laboratory Findings CBC and BMP: 08/24/23 20:08/24/23 20: PT/INR, D-dimer PT 10.2 sec (10.0-12.5) 08/24/23 20: INR 0.9 (<1.2) 08/24/23 20:27 Abnormal lab findings: Abnormal Labs 08/24/23 20: BUN 26 H Glucose 116 H - Diagnostic Findings CT scan - chest: image reviewed Assessment and Plan Assessment: Acute small bilateral segmental and subsegmental pulmonary emboli. No CT evidence of right-sided heart strain. Hemodynamically stable. Acute dyspnea, secondary to above History of hyperlipidemia History of hypertension History of peripheral arterial disease and right femoral arterial occlusion, status post right iliofemoral thromboendarterectomy with patch angioplasty History of a urinary retention Remote former tobacco smoker Plan: Patient's medications, labs, imaging reviewed Currently on room air Patient is currently on the high intensity heparin protocol, and will be transitioned to a Xa inhibitor. This is patient's first occurrence of PE. Continue anticoagulation for at least 3 to 6 months. We will continue to follow I have personally seen and examined the patient, performed the documentation and the assessment and plan as written. Number of minutes spent on the visit:20
--- NOTE | 2023-08-25 08:40 | P.HPIM ---
History of Present Illness This is a pleasant 77 years old male with past medical history of multiple medical problems including deep venous thrombosis. Patient says that his been taken off his blood thinner about one week ago. He presents because of dyspnea to his primary care doctor office found to have elevated d-dimer and sent to the emergency room. D-dimer was 3.6. He denies chest pain or coughing. No change in urine or bowel habits. No fever. He denies smoking alcohol or illicit drugs. Is mildly tachypneic current currently and saturating 98-96% on room air, blood pressure is slightly on the low side 119/64. He has unremarkable CBC, BMP and liver enzymes. BNP is 167. Troponin is negative less than 0.012. CTA of the chest showing pulmonary embolism in the right segmental and subsegmental branches with normal right heart strain on the CAT scan Ultrasound of the neck is ordered and is pending but patient denies leg pain or swelling. Currently, started on heparin drip Review of Systems Review of systems CONSTITUTIONAL: No fever, no malaise, no fatigue. HEENT: No recent visual problems or hearing problems. Denied any sore throat. CARDIOVASCULAR: No orthopnea, PND, no palpitations, no syncope. PULMONARY: no cough, no hemoptysis. GASTROINTESTINAL: No diarrhea, no nausea, no vomiting, no abdominal pain. Normoactive bowel sounds. NEUROLOGICAL: No headaches, no weakness, no numbness. HEMATOLOGICAL: Denies any bleeding or petechiae. GENITOURINARY: Denies any burning micturition, frequency, or urgency. MUSCULOSKELETAL/RHEUMATOLOGICAL: Denies any joint pain, swelling, or any muscle pain. ENDOCRINE: Denies any polyuria or polydipsia. Past Medical History Past Medical History: Cancer, Deep Vein Thrombosis (DVT), Hyperlipidemia, Hypertension, Osteoarthritis (OA), Pneumonia Additional Past Medical History / Comment(s): Hx Pneumonia in 1963. Hx basal cell skin cancer on face X2. Arthiritis bilateral hands and knees, bursitis bilateral hips-responded well to injections. Vitamin D Deficiency. Urethral stricture treated surgically with laser, able to urinate but does not completely empty bladder - self caths once or twice daily, hx UTIs prior to self cathing. History of Any Multi-Drug Resistant Organisms: None Reported Past Surgical History: Hernia Repair, Joint Replacement, Orthopedic Surgery, Tonsillectomy Additional Past Surgical History / Comment(s): Right ankle replacement, skin cancer removed from face X2, bilateral total knee replacements, multiple arthroscopies of bilateral knees, right hand and left ankle fractures, surgically repaired, steel plate and pin placed in little finger and later removed, bilateral eye surgery for glass shard removal, hernia repair X2. Past Anesthesia/Blood Transfusion Reactions: No Reported Reaction Additional Past Anesthesia/Blood Transfusion Reaction / Comment(s): Has never received blood. Past Psychological History: No Psychological Hx Reported Smoking Status: Former smoker Past Alcohol Use History: None Reported Additional Past Alcohol Use History / Comment(s): Smoked from [id number], quit for 8 yrs, resumed smoking in 1983 and quit for good in 2001. Past Drug Use History: None Reported - Past Family History Father Additional Family Medical History / Comment(s): Father served in [place] and came home with mental health issues. He was an alcoholic and suddenly at the age of 48. Mother Family Medical History: Dementia Additional Family Medical History / Comment(s): Mother passed at age 94. She had slight dementia starting. Medications and Allergies Home Medications Medication Instructions Recorded Confirmed Type Vitamin B Complex 1 tab PO Q2D 07/13/14 08/25/23 History Vitamin E (Dl,Tocopheryl Acet) 400 unit PO DAILY 07/13/14 08/25/23 History [Vitamin E (400 Iu = 180 mg)] atenoloL 25 mg PO HS 02/13/16 08/25/23 History Aspirin EC [Ecotrin Low Dose] 81 mg PO DAILY 06/16/22 08/25/23 History Magnesium Oxide [Magox 400] 400 mg PO DAILY 14 Days #14 tablet 06/16/22 08/25/23 Rx atenoloL 50 mg PO QAM 06/16/22 08/25/23 History lisinopriL [Prinivil] 20 mg PO DAILY 06/16/22 08/25/23 History traZODone HCL [Desyrel] 75 mg PO HS 06/16/22 08/25/23 History Melatonin 10 mg PO HS 12/05/22 08/25/23 History Omeprazole [PriLOSEC] 40 mg PO DAILY 12/05/22 08/25/23 History Baclofen [Lioresal] 10 mg PO TID 08/25/23 08/25/23 History Fluticasone Nasal [place] [Flonase 2 spray EA NOSTRIL DAILY 08/25/23 08/25/23 History Nasal [place]] Rosuvastatin [Crestor] 20 mg PO HS 08/25/23 08/25/23 History Allergies Allergy/AdvReac Type Severity Reaction Status Date / Time No Known Allergies Allergy Verified 08/25/23 07:24 Physical Exam Vitals: Vital Signs Temp Pulse Resp BP Pulse Ox 08/25/23 06:13 90 16 119/64 97 08/25/23 04:04 90 18 99/54 96 08/25/23 02:30 87 18 119/69 96 08/25/23 00:00 91 20 114/73 96 08/24/23 20:15 98.8 F 98 16 143/84 95 Intake and Output 08/24/23 08/25/23 08/25/23 22:59 06:59 14:59 Intake Total 126.55 Balance 126.55 Intake: Intake, IV Titration 126.55 Amount Heparin Sod,Pork in 0.45% 126.55 NaCl 25,000 unit In 0.45 % NaCl 1 250ml.bag @ 18 UNITS/KG/HR 16.329 mls/hr IV .[id number] [facility] Rx#: [id number] Other: Weight 90.718 kg GENERAL: The patient is alert and oriented x3, not in any acute distress. Well developed, well nourished. HEENT: Pupils are round and equally reacting to light. EOMI. No scleral icterus. No conjunctival pallor. Normocephalic, atraumatic. No pharyngeal erythema. No thyromegaly. CARDIOVASCULAR: S1 and S2 present. No murmurs, rubs, or gallops. PULMONARY: Chest is clear to auscultation, no wheezing , no crackles. ABDOMEN: Soft, nontender, nondistended, normoactive bowel sounds. No palpable o rganomegaly. MUSCULOSKELETAL: No joint swelling or deformity. EXTREMITIES: No cyanosis, clubbing, or pedal edema. NEUROLOGICAL: Gross neurological examination did not reveal any focal deficits. SKIN: No rashes. no petechiae. Results CBC & Chem 7: 08/24/23 20:27 08/24/23 20:27 Labs: Abnormal Lab Results - Last 24 Hours (Table) 08/24/23 08/25/23 Range/Units 20:27 05:50 APTT 92.1 H (22.0-30.0) sec BUN 26 H (9-20) mg/dL Glucose 116 H (74-99) mg/dL Assessment and Plan Assessment: Acute right pulmonary embolism History of DVT Hypertension, currently blood pressure on the low side Hyperlipidemia Plan: Continue with heparin drip Check ultrasound of the leg. Pulmonary consult Labs and medication were reviewed.. Continue same treatment. Continue with symptomatic treatment. Resume home medication. Monitor labs and vitals. DVT and GI prophylaxis. Further recommendations as per clinical course of the pat ient DVT prophylaxis: heparin GI Prophylaxis: Pepcid Prognosis is guarded
--- NOTE | 2023-08-25 09:40 | US ---
EXAMINATION TYPE: US venous doppler duplex LE DATE OF EXAM: 08/25/2023 8:28 AM COMPARISON: US 12/04/2022 CLINICAL INDICATION: Male, 77 years old with history of leg swelling; Hx DVT with PE; Chest pain and elevated D-Dimer SIDE PERFORMED: Bilateral TECHNIQUE: The lower extremity deep venous system is examined utilizing real time linear array sonog danii with graded compression, doppler sonography and color-flow sonography. VESSELS IMAGED: Common Femoral Vein Deep Femoral Vein Greater Saphenous Vein * Femoral Vein Popliteal Vein Small Saphenous Vein * Proximal Calf Veins (* superficial vessels) Right Leg: Negative for DVT Left Leg: Negative for DVT IMPRESSION: Grayscale, color doppler, spectral doppler imaging performed of the deep veins of the lo wer extremities. There is normal flow, compressibility, vascular waveforms.
[2023-08-25] MEDS: ASPIRIN 81 MG PO SCH (09:55)
[2023-08-25] MEDS: FLUTICASONE 50MCG/SPRAY NASAL 16GM EA NOSTRIL SCH (09:57)
[2023-08-25] MEDS ORDERED: MELATONIN 5 MG TABLET PO PRN (14:00)
[2023-08-25] MEDS: HEPARIN SOD,PORK IN 0.45% NACL 25,000 UNIT in 0.45% NACL 1 250ML.BAG IV SCH (14:20)
[2023-08-25] MEDS: BACLOFEN 10 MG TAB PO SCH ×2 (15:52→21:26)
[2023-08-25] MEDS ORDERED: ATORVASTATIN 40 MG TAB PO SCH (21:00)
[2023-08-25] MEDS ORDERED: atenoloL 25 MG TAB PO SCH (21:00)
[2023-08-25] MEDS ORDERED: traZODone HCL 50 MG TAB PO SCH (21:00)
[2023-08-26 04:15] LABS: Basophils % (A) 0 %; Eosinophils % (A) 1 %; HCT 37.7 % (39.0-53.0); HGB 12.4 gm/dL (13.0-17.5); Lymphocytes # (A) 0.8 k/uL (1.0-4.8); Lymphocytes % (A) 11 %; MCV 91.1 fL (80.0-100.0); Mean Platelet Volume 7.3; Monocytes # (A) 0.5 k/uL (0-1.0); Monocytes % (A) 7 %; Neutrophils # (A) 5.4 k/uL (1.3-7.7); Neutrophils % (A) 79 %; Platelet Count 225 k/uL (150-450); RBC 4.14 m/uL (4.30-5.90); RDW 13.5 % (11.5-15.5); WBC 6.9 k/uL (3.8-10.6)
[2023-08-26 04:57] LABS: African American GFR (CKD) >90 (>60 ml/min/1.73 sqM); Anion Gap 5 mmol/L; Blood Urea Nitrogen 15 mg/dL (9-20); Calcium 8.6 mg/dL (8.4-10.2); Carbon Dioxide 26 mmol/L (22-30); Chloride 104 mmol/L (98-107); Glucose 136 mg/dL (74-99); Non-African American GFR(CKD) >90 (>60 ml/min/1.73 sqM); Sodium 135 mmol/L (137-145)
[2023-08-26] MEDS: HEPARIN SOD,PORK IN 0.45% NACL 25,000 UNIT in 0.45% NACL 1 250ML.BAG IV SCH (06:04)
[2023-08-26] MEDS ORDERED: MAGNESIUM OXIDE 400 MG TAB PO SCH (09:00)
[2023-08-26] MEDS ORDERED: Apixaban Initiation Dose--VTE 5 MG TAB PO SCH (09:00)
[2023-08-26] MEDS ORDERED: atenoloL 50 MG TAB PO SCH (09:00)
[2023-08-26] MEDS ORDERED: lisinopriL 20 MG TAB PO SCH (09:00)
[2023-08-26] MEDS: BACLOFEN 10 MG TAB PO SCH (09:01)
[2023-08-26] MEDS: ASPIRIN 81 MG PO SCH (09:01)
[2023-08-26] MEDS: FLUTICASONE 50MCG/SPRAY NASAL 16GM EA NOSTRIL SCH (09:01)
--- NOTE | 2023-08-26 12:51 | P.PN ---
Subjective Progress Note Date: 08/26/23 Principal diagnosis: Shortness of breath, PE. I am seeing this patient in new consultation today August 25, 2023 in the emergency room after he was sent in from his primary care provider for an elevated D-dimer. Patient is a 77-year-old white male with past medical history significant for right femoral artery occlusion, hyperlipidemia, hypertension, urinary retention, and multiple orthopedic surgeries. Patient was being evaluated by his primary care provider, Landy Dixon, for shortness of breath. Apparently, the patient has been in experiencing exertional shortness of breath for approximately 1 month. He also endorses left subscapular back pain for the last 2 days. He was noted to have elevated D-dimer outpatient on his lab work. He was sent to the emergency room yesterday evening to rule out possible pulmonary embolus. Chest CTA demonstrates multiple bilateral pulmonary emboli in the right segmental and subsegmental branches as well as left lower lobe subsegmental branches. No CT evidence of right-sided heart strain. Patient is hemodynamically stable. NT proBNP 167. Troponin less than 0.012. Patient is currently sitting up in bed, on room air, in no acute distress. Denies chest pain, hemoptysis, syncope. He does have an occasional dry cough. No fevers. No lower extremity swelling. He denies any previous history of DVT or PE. Denies any family history of DVT or PE. Denies recent prolonged travel, surgery, trauma. He is fairly active at home. Patient was started on the high intensity heparin protocol. CBC unremarkable. BMP also unremarkable. Normal saline infusing at 20 mL/h. Vital signs are stable. Progress note dated August 26, 2023. This is a pleasant 77-year-old gentleman, who was seen in consultation, for shortness of breath. He was discovered to have pulmonary embolism. Dopplers of the lower extremities were negative. He is currently on IV heparin, which can be converted to Eliquis. The patient is currently on room air. Is not on any IV fluids. He denies any shortness of breath, difficulty breathing, or chest tightness, chest pain, or pressure. I told him he had an unprovoked pulmonary embolism, and should be treated for 6 months. In addition, the patient will eventually need follow-up CT angiogram, to make sure the clot has dissipated. Labs today include a white count of 6.9, hemoglobin 12.4, hematocrit 37.7, normal platelet count. Sodium 135, potassium 4, chloride 104, CO2 26, BUN 15, creatinine 0.67. Glucose is 136. Calcium is 8.6. Objective - Vital Signs Vital signs: Vital Signs Temp 99.4 F 08/26/23 09:00 Pulse 123 H 08/26/23 09:00 Resp 20 08/26/23 09:00 BP 145/78 08/26/23 09:00 Pulse Ox 95 08/26/23 09:00 FiO2 Intake & Output 08/25/23 08/26/23 08/26/23 18:59 06:59 18:59 Intake Total 109.856 476.722 193.357 Balance 109.856 476.722 193.357 Weight 90.718 kg Intake: Intake, IV Titration 109.856 239.722 75.357 Amount Heparin Sod,Pork in 0.45% 109.856 239.722 75.357 NaCl 25,000 unit In 0.45 % NaCl 1 250ml.bag @ 18 UNITS/KG/HR 16.329 mls/hr IV .[id number] [facility] Rx#: [id number] Oral 237 118 Other: Voiding Method Self-Catheterization Self-Catheterization # Voids 1 - Exam No acute distress, oriented 3. Currently on room air. No respiratory di fficulty. HEENT examination is grossly unremarkable. Mucous membranes are moist. No oral lesions. Neck supple. Full range of motion. No adenopathy thyromegaly or neck vein distention. Cardiovascular examination reveals regular rhythm rate. S1-S2 normal. No S3 or S4. No discernible murmur noted. Heart rate 95 bpm. Lungs reveal clear breath sounds. Breath sounds are equal bilaterally. No adventitious lung sounds including wheezes rhonchi or crackles. Room air saturation 96%. Abdomen soft bowel sounds are heard. No masses or tenderness. Extremities are intact. No cyanosis clubbing or edema. Skin is without rash or lesion. Neurologic examination is brief but nonfocal. - Labs CBC & Chem 7: 08/26/23 03:35 08/26/23 03:35 Labs: Abnormal Lab Results - Last 24 Hours (Table) 08/25/23 08/25/23 08/26/23 Range/Units 13:09 21:03 03:35 RBC 4.14 L (4.30-5.90) m/uL Hgb 12.4 L (13.0-17.5) gm/dL Hct 37.7 L (39.0-53.0) % Lymphocytes # 0.8 L (1.0-4.8) k/uL APTT 46.7 H 39.8 H (22.0-30.0) sec Sodium (137-145) mmol/L Glucose (74-99) mg/dL 08/26/23 08/26/23 08/26/23 Range/Units 03:35 03:35 08:13 RBC (4.30-5.90) m/uL Hgb (13.0-17.5) gm/dL Hct (39.0-53.0) % Lymphocytes # (1.0-4.8) k/uL APTT 48.5 H 44.3 H (22.0-30.0) sec Sodium 135 L (137-145) mmol/L Glucose 136 H (74-99) mg/dL Assessment and Plan Assessment: Acute small bilateral segmental and subsegmental pulmonary emboli. No CT evidence of right-sided heart strain. Hemodynamically stable. Acute dyspnea, secondary to above. History of hyperlipidemia. History of hypertension. History of peripheral arterial disease and right femoral arterial occlusion, status post right iliofemoral thromboendarterectomy with patch angioplasty. History of a urinary retention. Remote former tobacco smoker. Plan: Plan dated August 26, 2023. The patient will be converted to Eliquis, from IV heparin. The patient is on room air. He is not having any chest complaints, including shortness of breath, or chest pain. The patient had an unprovoked pulmonary embolism, should be treated for 6 months. Doppler lower extremities were negative for DVT. We will continue to follow the patient, and make recommendations along the way. The patient is overall prognosis remains good. He will need a follow-up CT angiogram, and he should be followed by me in the office after discharge. No additional recommendations are made. Prognosis is guarded. Time with Patient: Less than 30
[2023-08-26 13:23] VITALS: BP 120/61; PULSE 92; RESP 18; TEMP 97.8
== END 2023-08-26 15:36 | disposition home or self-care (01) | DRG 176 ==
LOC: EC 19:32 → 3SCARD 22:54
PROVIDERS: ADMIT Internal Medicine; ATTEND Internal Medicine
DX: I26.94 Multiple subsegmental thrombotic pulmonary emboli without acute cor pulmonale (principal); I70.201 Unspecified atherosclerosis of native arteries of extremities, right leg; I10 Essential (primary) hypertension; E78.5 Hyperlipidemia, unspecified; M19.042 Primary osteoarthritis, left hand; M19.041 Primary osteoarthritis, right hand; M17.0 Bilateral primary osteoarthritis of knee; R33.8 Other retention of urine; Z96.653 Presence of artificial knee joint, bilateral; Z95.820 Peripheral vascular angioplasty status with implants and grafts; Z87.891 Personal history of nicotine dependence; Z86.718 Personal history of other venous thrombosis and embolism; Z79.82 Long term (current) use of aspirin; Z79.899 Other long term (current) drug therapy; Z79.02 Long term (current) use of antithrombotics/antiplatelets; Z79.1 Long term (current) use of non-steroidal anti-inflammatories (NSAID); Z85.828 Personal history of other malignant neoplasm of skin
CPT/HCPCS: 36415; 71275; 80048; 80053; 83880; 84484; 85025; 85610; 85730; 93005; 93970; 96365; 96366; 99291

== ENCOUNTER → 2023-10-30 | Outpatient (CLI) | payer MEDICARE ==
[2023-10-30 10:42] LABS: African American GFR (CKD) >90 (>60 ml/min/1.73 sqM); Blood Urea Nitrogen 19 mg/dL (9-20); Non-African American GFR(CKD) 90 (>60 ml/min/1.73 sqM)
--- NOTE | 2023-10-30 12:41 | CT ---
CTA CHEST EXAMINATION TYPE: CT angio chest DATE OF EXAM: 10/30/2023 INDICATION: Hx pulmonary embolism CT DLP: 457.20 mGycm, Automated exposure control for dose reduction was used. CONTRAST: Patient injected with 100 mL of Isovue 370. COMPARISON: None TECHNIQUE: CT of the chest is performed on a spiral scan at 2 mm thick sections. Study is performed with intravenous contrast timed for evaluation for pulmonary embolism. This will limit additional po rtions of the evaluation. 3-D MIP images reconstructed by the technologist are reviewed on the compu ter in the coronal and sagittal planes. FINDINGS: No persistent filling defects are evident to suggest an acute pulmonary embolism. No mediastinal or hilar adenopathy enlarged by CT criteria is evident. The ascending aorta diameter at the level of the main pulmonary artery is 4.0 cm. The main pulmonary artery diameter at the bifurcation is 3.1 cm. Some coronary artery calcification is present. 0.7 cm posterior lateral left apex density. Image 30. This is new from comparison Some pneumonitis type change and peribronchial thickening may be present within the posterior medial right lung. This was present previously. Some chronic bronchitis may be present with mild wall thickening diffusely of the lower lobe bronchi. Limited CT sections were through the upper abdomen. Upper abdomen appears unremarkable. IMPRESSION: 1. Ascending thoracic aortic aneurysm measuring 4.0 cm. 2. New nodular density posterior lateral left apex. Short-term follow-up in 3-6 months is recommended . 3. Stable pneumonitis type change right medial lower lobe. 4. Clinical consideration for chronic bronchitis.
== END | disposition home or self-care (01) ==
LOC: RADCTMAIN 09:54
PROVIDERS: ATTEND Internal Medicine Critical Care Medicine
DX: I71.21 Aneurysm of the ascending aorta, without rupture (principal); J98.4 Other disorders of lung; I26.99 Other pulmonary embolism without acute cor pulmonale
CPT/HCPCS: 82565; 84520; 71275; 36415; Q9967

== ENCOUNTER → 2024-05-20 | Outpatient (CLI) | payer MEDICARE ==
[2024-05-20 11:59] LABS: African American GFR (CKD) >90 (>60 ml/min/1.73 sqM); Blood Urea Nitrogen 22 mg/dL (9-20); Non-African American GFR(CKD) 83 (>60 ml/min/1.73 sqM)
--- NOTE | 2024-05-20 14:37 | CT ---
EXAMINATION TYPE: CT angio head neck CT DLP: 1613.0 mGycm, Automated exposure control for dose reduction was used. DATE OF EXAM: 05/20/2024 12:38 PM COMPARISON: CT brain 07/07/2022. CLINICAL INDICATION:Male, 78 years old with history of Z82.3 FAMILY HISTORY OF ANEURYSM; PHH, FAMILY HISTORY BRAIN OF ANEURYSM. TECHNIQUE: Axially acquired helical CT angiogram of the head and neck was obtained with contrast util izing 75 cc of Isovue-370 administered intravenously. Axial images are supplemented with 3D reconstru ctions which were post-processed at an independent workstation. NASCET criteria used. FINDINGS: CTA HEAD: No evidence of acute intracranial hemorrhage, mass effect, or midline shift. The ventricles, sulci, a nd cisterns are unremarkable. Right anterior temporal extra-axial 6 mm stable calcified lesion fairly represent a meningioma (series 18, image 32). The visualized portions of the internal carotid arteries, middle cerebral arteries, anterior cerebral arteries, and posterior cerebral arteries are patent. The basilar and vertebral arteries are patent. The vertebral arteries are codominant. Nonspecific scattered hypodensities within the periventricular white matter on the noncontrast CT por tion of the brain. Favored to represent chronic small vessel ischemic disease. CTA NECK: Right Carotid System: The common carotid artery and external carotid artery are patent. Moderate calcified plaque at the ca rotid bifurcation extending into the proximal internal carotid artery. Approximately 10% stenosis wit hin the proximal right internal carotid artery. The remaining portions of the internal carotid artery demonstrate normal size without significant narrowing. Left Carotid System: The common carotid artery and external carotid artery are patent. Moderate calcified plaque at the ca rotid bifurcation extending into the proximal internal carotid artery. Approximately 10% stenosis wit hin the proximal left internal carotid artery. The remaining portions of the internal carotid artery demonstrate normal size without significant narrowing. Vertebral arteries are patent without evidence hemodynamically significant stenosis. There is a three-vessel aortic arch. The origins of the great vessels are patent. No evidence of hemo dynamically significant stenosis. Mild centrilobular emphysematous changes. IMPRESSION: 1. No evidence of dissection of the cervical internal carotid arteries or vertebral arteries. Approxi mately 10% stenosis at the origins of the bilateral internal carotid artery secondary to calcified pl aque. 2. No evidence of high-grade stenosis or intracranial aneurysm. 3. Stable extra-axial calcified right temporal 6 mm lesion favored to represent a meningioma. [facility], , 05/20/2024 2:35 PM
== END | disposition home or self-care (01) ==
LOC: RADCTMAIN 11:17
PROVIDERS: ATTEND Family Medicine
DX: I65.21 Occlusion and stenosis of right carotid artery (principal)
CPT/HCPCS: 36415; 70496; 70498; 82565; 84520

== ENCOUNTER → 2024-11-25 | Outpatient (CLI) | payer MEDICARE ==
--- NOTE | 2024-11-25 17:15 | CA ---
Transthoracic Echo Report Name: Rusty Spaulding Age: 78 Gender: M : 1945 Exam Date: 11/25/2024 13:43 Exam Location: [facility] Ht (in): 68 Wt (lb): 204 Ordering Physician: Landy Dixon MD Attending/Referring Phys: MALINDA, Zack [employer] Carol Sorto RDCS Procedure CPT: Indications: R01.1 CARDIAC MURMUR, UNSPECIFIED Cardiac Hx: Technical Quality: Good Contrast 1: Total Dose (mL): Contrast 2: Total Dose (mL): MEASUREMENTS (Male / Female) Normal Values 2D ECHO LV Diastolic Diameter PLAX 3.6 cm 4.2 - 5.9 / 3.9 - 5.3 cm LV Systolic Diameter PLAX 3.1 cm IVS Diastolic Thickness 1.5 cm 0.6 - 1.0 / 0.6 - 0.9 cm LVPW Diastolic Thickness 1.7 cm 0.6 - 1.0 / 0.6 - 0.9 cm LV Relative Wall Thickness 0.9 RV Internal Dim ED PLAX 3.6 cm LVOT Diameter 2.3 cm LA Systolic Diameter LX 5.0 cm 3.0 - 4.0 / 2.7 - 3.8 cm LV Diastolic Volume MOD 2C 53.3 cm??? LV Systolic Volume MOD 2C 28.3 cm??? LV Ejection Fraction MOD 2C 47.0 % LV Cardiac Index MOD 2C 786.0 cm???/min???m??? LV Diastolic Length 2C 7.6 cm LV Systolic Length 2C 6.1 cm M-MODE Aortic Root Diameter MM 4.0 cm LA Systolic Diameter MM 4.6 cm LA Ao Ratio MM 1.2 AV Cusp Separation MM 1.1 cm DOPPLER AV Peak Velocity 210.6 cm/s AV Peak Gradient 17.7 mmHg AV Mean Velocity 150.8 cm/s AV Mean Gradient 10.3 mmHg AV Velocity Time Integral 48.0 cm AI Peak Velocity 452.7 cm/s AI Peak Gradient 82.0 mmHg AI Pressure Half Time 693.3 ms LVOT Peak Velocity 94.3 cm/s LVOT Peak Gradient 3.6 mmHg LVOT Velocity Time Integral 22.4 cm LVOT Stroke Volume 96.0 cm??? LVOT Stroke Volume Index 46.6 ml/m??? LVOT Cardiac Index 3013.4 cm???/min???m??? AV Area Cont Eq vti 2.0 cm??? AV Area Cont Eq pk 1.9 cm??? Mitral E Point Velocity 83.5 cm/s Mitral A Point Velocity 126.2 cm/s Mitral E to A Ratio 0.7 MV Deceleration Time 319.0 ms MV E' Velocity 4.5 cm/s Mitral E to MV E' Ratio 18.6 TR Peak Velocity 271.5 cm/s TR Peak Gradient 29.5 mmHg FINDINGS Left Ventricle Left ventricular ejection fraction is estimated at 55-60 %. Moderately increased septal wall thickness. Normal left ventricular systolic function with no obvious regional wall motion abnormalities. Left ventricular cavity size normal. Right Ventricle Normal right ventricular size and function. Right ventricular systolic pressure within normal limits. Right Atrium Mild right atrial dilatation. Left Atrium Moderately increased left atrial diameter. Mitral Valve Structurally normal mitral valve. Mild mitral regurgitation. No mitral stenosis. Aortic Valve Trileaflet aortic valve. Mild aortic stenosis with a peak gradient of 18 mmHg and a mean gradient of 10mmHg. Mild aortic regurgitation. Tricuspid Valve Structurally normal tricuspid valve. Mild tricuspid regurgitation. No tricuspid stenosis. Pulmonic Valve Structurally normal pulmonic valve. Mild pulmonic regurgitation. No pulmonic stenosis. Pericardium No pericardial or pleural effusion. Aorta Mild aortic dilatation at the level of the sinuses of valsalva (root). CONCLUSIONS Left ventricular ejection fraction 55 to 60% Moderately increased left ventricular wall thickness RVSP 29 Moderately dilated left atrium Mild aortic stenosis Mild tricuspid regurgitation No pericardial effusion Previewed by: Dr. Sudhakar Bowman DO (Electronically Signed) Final Date: 25 Nov 2024 17:14
== END | disposition home or self-care (01) ==
LOC: RADECHMAIN 13:11
PROVIDERS: ATTEND Family Medicine
DX: I08.2 Rheumatic disorders of both aortic and tricuspid valves (principal); R01.1 Cardiac murmur, unspecified
CPT/HCPCS: 93306

== ENCOUNTER 2025-01-15 11:07 | Observation (INO) | payer MEDICARE ==
[2025-01-15] MEDS ORDERED: VANCOMYCIN IV PER PHARMACY 1 EACH MISC MISCELLANE PRN (12:34)
--- NOTE | 2025-01-15 12:42 | ED ---
General Adult HPI - General Chief complaint: Weakness Stated complaint: Kingsley leg weakness Time Seen by Provider: 01/15/25 12:16 Source: patient, family Mode of arrival: wheelchair - History of Present Illness Initial comments: Patient is a 79-year-old gentleman with a past medical history of PAD, CAD presenting today for weakness and left lower extremity swelling. Patient states that he started to feel weak beginning last Thursday. He is usually able to ambulate without difficulty, however since he has required the assistance of crutches due to weakness in his legs. He began noticing swelling and redness in his left foot over the same period of time. He states the pain in his left foot is worse at the ankle, he has been dealing with a nail infection on that foot. He states the pain intermittently radiates up towards his left hip and then across to his right ribs. He endorses subjective fevers and chills but denies measuring any fevers at home. He has been taking tramadol for pain without much relief. Denies history of diabetes for denies injury to his left foot. Denies recent travel surgery or hospitalizations. He does have history of prior PE/DVT is not on blood thinners. He is not a smoker. Denies chest pain, difficulty in breathing, abdominal pain, nausea, vomiting, diarrhea, hematuria, dysuria, additional weakness or slurred speech or changes in vision. He states intermittently he gets numbness up the back of his left leg towards his left hip depending on the position he is in. - Related Data Home Medications Medication Instructions Recorded Confirmed Vitamin B Complex 1 tab PO DAILY 07/13/14 01/15/25 Vitamin E (Dl,Tocopheryl Acet) 400 unit PO DAILY 07/13/14 01/15/25 [Vitamin E (400 Iu = 180 mg)] atenoloL 25 mg PO HS 02/13/16 01/15/25 Aspirin EC [Ecotrin Low Dose] 81 mg PO DAILY 06/16/22 01/15/25 atenoloL 50 mg PO DAILY 06/16/22 01/15/25 traZODone HCL [Desyrel] 50 mg PO HS 06/16/22 01/15/25 Omeprazole [PriLOSEC] 40 mg PO DAILY 12/05/22 01/15/25 Rosuvastatin [Crestor] 20 mg PO HS 08/25/23 01/15/25 Ezetimibe [Zetia] 10 mg PO DAILY 01/15/25 01/15/25 Famotidine 20 mg PO BID 01/15/25 01/15/25 Folic Acid 1 mg PO DAILY 01/15/25 01/15/25 amLODIPine [Norvasc] 5 mg PO BID 01/15/25 01/15/25 metHOTREXate sodium 25 mg PO ANAYA@199901/15/25 01/15/25 methylPREDNISolone [Medrol Dose See Taper PO DIRECTED PRN 01/15/25 01/15/25 Pack] Previous Rx's Medication Instructions Recorded Magnesium Oxide [Magox 400] 400 mg PO DAILY 14 Days #14 tablet 06/16/22 Allergies Allergy/AdvReac Type Severity Reaction Status Date / Time No Known Allergies Allergy Verified 01/15/25 19:48 Review of Systems ROS Statement: Those systems with pertinent positive or pertinent negative responses have been documented in the HPI. ROS Other: All systems not noted in ROS Statement are negative. Past Medical History Past Medical History: Cancer, Deep Vein Thrombosis (DVT), Hyperlipidemia, Hypertension, Osteoarthritis (OA), Pneumonia Additional Past Medical History / Comment(s): Hx Pneumonia in 1962. Hx basal cell skin cancer on face X2. Arthiritis bilateral hands and bursitis bilateral hips-responded well to injections. Vitamin D Deficiency. Urethral stricture treated surgically with laser, able to urinate but does not completely empty bladder - self caths once or twice daily, hx UTIs prior to self cathing. History of Any Multi-Drug Resistant Organisms: None Reported Past Surgical History: Hernia Repair, Joint Replacement, Orthopedic Surgery, Tonsillectomy Additional Past Surgical History / Comment(s): Right ankle replacement, skin cancer removed from face X2, bilateral total knee replacements, multiple arthroscopies of bilateral knees, right hand and left ankle fractures, surgically repaired, steel plate and pin placed in little finger and later removed, bilateral eye surgery for glass shard removal, hernia repair X2. Past Anesthesia/Blood Transfusion Reactions: No Reported Reaction Additional Past Anesthesia/Blood Transfusion Reaction / Comment(s): Has never received blood. Past Psychological History: No Psychological Hx Reported Smoking Status: Former smoker Past Alcohol Use History: None Reported Past Drug Use History: None Reported - Past Family History Father Additional Family Medical History / Comment(s): Father served in [employer] and came home with mental health issues. He was an alcoholic and suddenly at the age of 48. Mother Family Medical History: Dementia Additional Family Medical History / Comment(s): Mother passed at age 94. She had slight dementia starting. General Exam - General Exam Comments Initial Comments: PE: CONSTITUTIONAL: No apparent distress, well appearing SKIN: Warm, dry, no jaundice, hives or petechiae, erythema of the left distal metatarsal first metatarsal joint, extending to the left ankle EYES: Pupils are equally round, extraocular movements intact without nystagmus, clear conjunctiva, non-icteric sclera HENT: Normocephalic, atraumatic, moist mucus membranes, oropharynx clear without exudates NECK: , Full range of motion, normal appearance PULMONARY: Clear to auscultation without wheezes, rhonchi, or rales, normal excursion, no accessory muscle use and no stridor CARDIOVASCULAR: Regular rate, rhythm, normal S1 and S2. No appreciated murmurs, rubs or gallops. Strong radial pulses with intact distal perfusion. No lower extremity edema GASTROINTESTINAL: Soft, active bowel sounds throughout, non-tender, non- distended, no palpable masses, no rebound or guarding. No hepatosplenomegaly GENITOURINARY: MUSCULOSKELETAL: Extremities have no gross deformity, no edema, redness, or swelling. No calf swelling small amount of edema of the left foot, tenderness location of the left ankle, No midline spinal tenderness to palpation, equal sensation in all 4 extremities NEUROLOGIC:_a/o x 3, GCS 15, normal mentation and speech. Moves all extremities x 4 without motor or sensory deficit 5 of 5 strength in the bilateral upper extremities, 3-5 strength in bilateral lower extremities PSYCHIATRIC:_normal mood and affect, thought process is clear and linear Course Vital Signs 01/15/25 01/15/25 01/15/25 11:22 12:34 14:34 Temperature 99.4 F 102.2 F H 99.2 F Pulse Rate 107 H 90 Respiratory 20 17 Rate Blood Pressure 157/80 140/79 O2 Sat by Pulse 97 96 Oximetry 01/15/25 01/15/25 01/16/25 17:29 19:27 04:06 Temperature 99.2 F 99.5 F Pulse Rate 90 91 82 Respiratory 19 19 16 Rate Blood Pressure 140/79 135/69 135/69 O2 Sat by Pulse 94 L 94 L 92 L Oximetry 01/16/25 01/16/25 01/16/25 04:39 06:49 07:20 Temperature Pulse Rate 82 99 90 Respiratory 18 18 16 Rate Blood Pressure 115/61 123/75 128/64 O2 Sat by Pulse 94 L Oximetry EKG Findings - EKG Comments: EKG Findings:: Sinus tachycardia, heart rate 101, intervals within acceptable limits, left axis deviation, no significant ST elevations or depressions no arrhythmia Medical Decision Making - Medical Decision Making Was pt. sent in by a medical professional or institution (, PA, PULP MILL OPERATOR, urgent care, hospital, or residential...) When possible be specific @ -No Did you speak to anyone other than the patient for history (EMS, parent, family, police, friend...)? What history was obtained from this source @ -No Did you review nursing and triage notes (agree or disagree)? Why? @ -I reviewed and agree with nursing and triage notes Were old charts reviewed (outside hosp., previous admission, EMS record, old EKG, old radiological studies, urgent care reports/EKG's, residential records)? Report findings @ -Medical records reviewed Differential Diagnosis (chest pain, altered mental status, abdominal pain women, abdominal pain men, vaginal bleeding, weakness, fever, dyspnea, syncope, he adache, dizziness, GI bleed, back pain, seizure, CVA, palpatations, mental health, musculoskeletal)? Differential Weakness: Hypoglycemia, shock, sepsis, hyponatremia, anemia, infection, VA, ETOH, adverse medicine reaction, overdose, stroke, this is not meant to be an all-inclusive list. Differential Musculoskeletal Muscular strain, contusion, ligament sprain, fracture, arthritis, septic arthritis, bursitis, cellulitis, muscle spasm, nerve compression, DVT, arterial occlusion, herpes zoster, electrolyte abnormality, tumor.... This is not meant to be in all inclusive list EKG interpreted by me (3pts min.). @ -As above X-rays interpreted by me (1pt min.). @ -Personally reviewed x-ray of the left foot, I see no evidence of fracture, radiologist does note "a lucency along the talar dome possibly reflecting an osteochondral lesion, ankle soft tissue swelling noted", additionally reviewed ankle and hip pelvis x-ray see no evidence of fracture or bone breakdown to suggest osteomyelitis CT interpreted by me (1pt min.). @ , personally reviewed CTA chest I see no evidence of pulmonary embolism agree with radiologist interpretation U/S interpreted by me (1pt. min.). reviewed ultrasound lower extremity see no evidence of vaso-occlusive DVT agree with radiologist interpretation What testing was considered but not performed or refused? (CT, X-rays, U/S, labs)? Why? @ -None What meds were considered but not given or refused? Why? @ -None Did you discuss the management of the patient with other professionals (professionals i.e. , PA, PULP MILL OPERATOR, lab, RT, psych nurse, administrator social welfare, palliative care specialist, te acher, chief science officer, case fitter)? Give summary @ -No Was smoking cessation discussed for >3mins.? @ -No Was critical care preformed (if so, how long)? @Yes, 35 minutes, sepsis Were there social determinants of health that impacted care today? How? (Homelessness, low income, unemployed, alcoholism, drug addiction, transportation, low edu. Level, literacy, decrease access to med. care, skilled nursing, rehab)? @ -No Was there de-escalation of care discussed even if they declined (Discuss DNR or withdrawal of care, Hospice)? @ -No What co-morbidities impacted this encounter? (DM, HTN, Smoking, COPD, CAD, Cancer, CVA, ARF, Chemo, Hep., AIDS, mental health diagnosis, sleep apnea, morbid obesity)? @PAD, CAD Was patient admitted / discharged? Hospital course, mention meds given and route, prescriptions, significant lab abnormalities, going to OR and other pertinent info. @ -Admitted- This is a pleasant 79-year-old man presenting today for weakness x 4 to 5 days as well as redness and swelling of his left foot over the same period of time.Vital signs on arrival show an oral temp 99.4 degrees, rectal temp will be obtained, pulse 107 bpm, respiratory rate 20, blood pressure 127/80 pulse ox 97% exam shows small amount of redness to the left tarsometatarsal joint extending to the ankle tenderness w/ palpation of the ankle, no injuries. Of top considerations are cellulitis, osteomyelitis versus DVT. Ordered septic workup, ultrasound left lower extremity, x-ray of the left foot, CT PE study reyna ya patient's history of prior PE, pain control, cefepime vancomycin. 30 cc/kg bolus LR. patient agreeable plan of care. Labs reviewed thus far, no leukocytosis, lactic 1.8. Imaging negative for PE, signs of osteomyelitis or septic joint. Updated pt to findings and anticipated admission. [facility], kindly accepts patient for admission Undiagnosed new problem with uncertain prognosis? @ -No Drug Therapy requiring intensive monitoring for toxicity (Heparin, Nitro, Insulin, Cardizem)? @ -No Were any procedures done? @ -No Diagnosis/symptom? @Sepsis, Cellulitis, possible osteomyelitis Acute, or Chronic, or Acute on Chronic? Acute Uncomplicated (without systemic symptoms) or Complicated (systemic symptoms)? @Complicated Side effects of treatment? @ -No Exacerbation, Progression, or Severe Exacerbation? @ -No Poses a threat to life or bodily function? How? (Chest pain, USA, VA, pneumonia, PE, COPD, DKA, ARF, appy, cholecystitis, CVA, Diverticulitis, Homicidal, Suicidal, threat to staff... and all critical care pts) @ -[Yes - Lab Data Result diagrams: 01/17/25 06:29 01/17/25 06:29 Lab Results 01/15/25 01/15/25 01/15/25 Range/Units 12:50 12:50 12:50 WBC 7.78 (4.50-10.00) 10*3/uL RBC 4.32 L (4.40-5.60) 10*6/uL Hgb 12.3 L (13.0-17.0) g/dL Hct 37.7 L (39.6-50.0) % MCV 87.3 (80.0-97.0) fL MCH 28.5 (27.0-32.0) pg MCHC 32.6 (32.0-37.0) g/dL RDW (11.5-14.5) % Plt Count 278 (140-440) 10*3/uL MPV 8.8 L (9.5-12.2) fL Immature Gran % (Auto) 0.3 % Absolute Nucleated RBC % Neutrophils % 80.0 % Lymphocytes % 6.4 % Monocytes % 12.3 % Eosinophils % 0.6 % Basophils % 0.4 % Immature Gran # 0.02 (0.00-0.04) 10*3/uL Neutrophils # 6.22 (1.80-7.70) 10*3/uL Lymphocytes # 0.50 L (0.90-5.00) 10*3/uL Monocytes # 0.96 (0.20-1.00) 10*3/uL Eosinophils # 0.05 (0.04-0.35) 10*3/uL Basophils # 0.03 (0.00-0.10) 10*3/uL NRBC/100 WBC Diff (0.00-0.01) X 10*3/uL ESR (0-20) mm/Hr PT 11.8 (10.0-12.5) sec INR 1.1 (<1.2) APTT 23.1 (22.0-30.0) sec Sodium 136 L (137-145) mmol/L Potassium 4.2 (3.5-5.1) mmol/L Chloride 98 (98-107) mmol/L Carbon Dioxide 24 (22-30) mmol/L Anion Gap 14 mmol/L BUN 16 (9-20) mg/dL Creatinine 0.80 (0.66-1.25) mg/dL Est GFR (CKD-EPI)AfAm >90 (>60 ml/min/1.73 sqM) Est GFR (CKD-EPI)NonAf 85 (>60 ml/min/1.73 sqM) Glucose 114 H (74-99) mg/dL Plasma Lactic Acid Rodrigo (0.7-2.0) mmol/L Calcium 9.5 (8.4-10.2) mg/dL Magnesium 2.1 (1.6-2.3) mg/dL Total Bilirubin 1.3 (0.2-1.3) mg/dL AST 29 (17-59) U/L ALT 31 (4-49) U/L Alkaline Phosphatase 91 (38-126) U/L Troponin I (0.000-0.034) ng/mL C-Reactive Protein 19.1 H (<1.0) mg/dL Total Protein 6.8 (6.3-8.2) g/dL Albumin 4.0 (3.5-5.0) g/dL 01/15/25 01/15/25 01/15/25 Range/Units 12:50 12:50 12:50 WBC (4.50-10.00) 10*3/uL RBC (4.40-5.60) 10*6/uL Hgb (13.0-17.0) g/dL Hct (39.6-50.0) % MCV (80.0-97.0) fL MCH (27.0-32.0) pg MCHC (32.0-37.0) g/dL RDW (11.5-14.5) % Plt Count (140-440) 10*3/uL MPV (9.5-12.2) fL Immature Gran % (Auto) % Absolute Nucleated RBC % Neutrophils % % Lymphocytes % % Monocytes % % Eosinophils % % Basophils % % Immature Gran # (0.00-0.04) 10*3/uL Neutrophils # (1.80-7.70) 10*3/uL Lymphocytes # (0.90-5.00) 10*3/uL Monocytes # (0.20-1.00) 10*3/uL Eosinophils # (0.04-0.35) 10*3/uL Basophils # (0.00-0.10) 10*3/uL NRBC/100 WBC Diff (0.00-0.01) X 10*3/uL ESR 85 H (0-20) mm/Hr PT (10.0-12.5) sec INR (<1.2) APTT (22.0-30.0) sec Sodium (137-145) mmol/L Potassium (3.5-5.1) mmol/L Chloride (98-107) mmol/L Carbon Dioxide (22-30) mmol/L Anion Gap mmol/L BUN (9-20) mg/dL Creatinine (0.66-1.25) mg/dL Est GFR (CKD-EPI)AfAm (>60 ml/min/1.73 sqM) Est GFR (CKD-EPI)NonAf (>60 ml/min/1.73 sqM) Glucose (74-99) mg/dL Plasma Lactic Acid Rodrigo 1.3 (0.7-2.0) mmol/L Calcium (8.4-10.2) mg/dL Magnesium (1.6-2.3) mg/dL Total Bilirubin (0.2-1.3) mg/dL AST (17-59) U/L ALT (4-49) U/L Alkaline Phosphatase (38-126) U/L Troponin I <0.012 (0.000-0.034) ng/mL C-Reactive Protein (<1.0) mg/dL Total Protein (6.3-8.2) g/dL Albumin (3.5-5.0) g/dL 01/16/25 01/16/25 01/16/25 Range/Units 06:37 06:37 06:37 WBC 6.00 (4.50-10.00) 10*3/uL RBC 3.86 L (4.40-5.60) 10*6/uL Hgb 10.7 L (13.0-17.0) g/dL Hct 34.8 L (39.6-50.0) % MCV 90.2 (80.0-97.0) fL MCH 27.7 (27.0-32.0) pg MCHC 30.7 L (32.0-37.0) g/dL RDW 15.7 H (11.5-14.5) % Plt Count 264 (140-440) 10*3/uL MPV 9.6 (9.5-12.2) fL Immature Gran % (Auto) % Absolute Nucleated RBC 0 % Neutrophils % % Lymphocytes % % Monocytes % % Eosinophils % % Basophils % % Immature Gran # (0.00-0.04) 10*3/uL Neutrophils # (1.80-7.70) 10*3/uL Lymphocytes # (0.90-5.00) 10*3/uL Monocytes # (0.20-1.00) 10*3/uL Eosinophils # (0.04-0.35) 10*3/uL Basophils # (0.00-0.10) 10*3/uL NRBC/100 WBC Diff 0 (0.00-0.01) X 10*3/uL ESR 78 H (0-20) mm/Hr PT (10.0-12.5) sec INR (<1.2) APTT (22.0-30.0) sec Sodium 138 (137-145) mmol/L Potassium 4.4 (3.5-5.1) mmol/L Chloride 107 (98-107) mmol/L Carbon Dioxide 23 (22-30) mmol/L Anion Gap 8 mmol/L BUN 14 (9-20) mg/dL Creatinine 0.70 (0.66-1.25) mg/dL Est GFR (CKD-EPI)AfAm >90 (>60 ml/min/1.73 sqM) Est GFR (CKD-EPI)NonAf >90 (>60 ml/min/1.73 sqM) Glucose 96 (74-99) mg/dL Plasma Lactic Acid Rodrigo (0.7-2.0) mmol/L Calcium 8.9 (8.4-10.2) mg/dL Magnesium (1.6-2.3) mg/dL Total Bilirubin (0.2-1.3) mg/dL AST (17-59) U/L ALT (4-49) U/L Alkaline Phosphatase (38-126) U/L Troponin I (0.000-0.034) ng/mL C-Reactive Protein (<1.0) mg/dL Total Protein (6.3-8.2) g/dL Albumin (3.5-5.0) g/dL 01/16/25 01/17/25 01/17/25 Range/Units 06:37 06:29 06:29 WBC 5.81 (4.50-10.00) 10*3/uL RBC 3.74 L (4.40-5.60) 10*6/uL Hgb 10.6 L (13.0-17.0) g/dL Hct 32.9 L (39.6-50.0) % MCV 88.0 (80.0-97.0) fL MCH 28.3 (27.0-32.0) pg MCHC 32.2 (32.0-37.0) g/dL RDW (11.5-14.5) % Plt Count 272 (140-440) 10*3/uL MPV 8.7 L (9.5-12.2) fL Immature Gran % (Auto) 0.3 % Absolute Nucleated RBC % Neutrophils % 76.9 % Lymphocytes % 6.7 % Monocytes % 12.2 % Eosinophils % 3.6 % Basophils % 0.3 % Immature Gran # 0.02 (0.00-0.04) 10*3/uL Neutrophils # 4.46 (1.80-7.70) 10*3/uL Lymphocytes # 0.39 L (0.90-5.00) 10*3/uL Monocytes # 0.71 (0.20-1.00) 10*3/uL Eosinophils # 0.21 (0.04-0.35) 10*3/uL Basophils # 0.02 (0.00-0.10) 10*3/uL NRBC/100 WBC Diff (0.00-0.01) X 10*3/uL ESR (0-20) mm/Hr PT (10.0-12.5) sec INR (<1.2) APTT (22.0-30.0) sec Sodium 137 (137-145) mmol/L Potassium 3.6 (3.5-5.1) mmol/L Chloride 106 (98-107) mmol/L Carbon Dioxide 26 (22-30) mmol/L Anion Gap 5 mmol/L BUN 13 (9-20) mg/dL Creatinine 0.65 L (0.66-1.25) mg/dL Est GFR (CKD-EPI)AfAm >90 (>60 ml/min/1.73 sqM) Est GFR (CKD-EPI)NonAf >90 (>60 ml/min/1.73 sqM) Glucose 129 H (74-99) mg/dL Plasma Lactic Acid Rodrigo (0.7-2.0) mmol/L Calcium 8.6 (8.4-10.2) mg/dL Magnesium (1.6-2.3) mg/dL Total Bilirubin (0.2-1.3) mg/dL AST (17-59) U/L ALT (4-49) U/L Alkaline Phosphatase (38-126) U/L Troponin I (0.000-0.034) ng/mL C-Reactive Protein 16.30 H 17.8 H (<1.0) mg/dL Total Protein (6.3-8.2) g/dL Albumin (3.5-5.0) g/dL Disposition Clinical Impression: Sepsis, Cellulitis of left foot Disposition: ADMITTED IP TO THIS HOSP Condition: Stable
[2025-01-15 13:02] LABS: Basophils # (A) 0.03 10*3/uL (0.00-0.10); Basophils % (A) 0.4 %; Eosinophils # (A) 0.05 10*3/uL (0.04-0.35); Eosinophils % (A) 0.6 %; HCT 37.7 % (39.6-50.0); HGB 12.3 g/dL (13.0-17.0); Lymphocytes % (A) 6.4 %; MCH 28.5 pg (27.0-32.0); MCHC 32.6 g/dL (32.0-37.0); MCV 87.3 fL (80.0-97.0); Mean Platelet Volume 8.8 fL (9.5-12.2); Monocytes # (A) 0.96 10*3/uL (0.20-1.00); Monocytes % (A) 12.3 %; Neutrophils # (A) 6.22 10*3/uL (1.80-7.70); Platelet Count 278 10*3/uL (140-440); RBC 4.32 10*6/uL (4.40-5.60); RDW 15.7 % (11.5-14.5); WBC 7.78 10*3/uL (4.50-10.00)
[2025-01-15] MEDS: LACTATED RINGERS 1,000 ML IV ONE (13:12)
[2025-01-15] MEDS: ACETAMINOPHEN TAB 500 MG TAB PO STA (13:12)
[2025-01-15] MEDS: MORPHINE SULFATE 4 MG/ML SYRINGE IV STA (13:15)
[2025-01-15] MEDS: ONDANSETRON 4 MG/2 ML VIAL IVP STA (13:15)
[2025-01-15 13:21] LABS: INR 1.1 (<1.2); Partial Thromboplastin Time 23.1 sec (22.0-30.0); Prothrombin Time 11.8 sec (10.0-12.5)
[2025-01-15] MEDS: CEFEPIME 2 GM in SODIUM CHLORIDE 0.9% 100 ML IVPB STA (13:22)
[2025-01-15 13:33] LABS: ALT 31 U/L (4-49); AST 29 U/L (17-59); African American GFR (CKD) >90 (>60 ml/min/1.73 sqM); Alkaline Phosphatase 91 U/L (38-126); Anion Gap 14 mmol/L; Blood Urea Nitrogen 16 mg/dL (9-20); Calcium 9.5 mg/dL (8.4-10.2); Carbon Dioxide 24 mmol/L (22-30); Chloride 98 mmol/L (98-107); Glucose 114 mg/dL (74-99); Magnesium 2.1 mg/dL (1.6-2.3); Non-African American GFR(CKD) 85 (>60 ml/min/1.73 sqM); Potassium 4.2 mmol/L (3.5-5.1); Sodium 136 mmol/L (137-145); Total Bilirubin 1.3 mg/dL (0.2-1.3); Total Protein 6.8 g/dL (6.3-8.2)
[2025-01-15 13:59] LABS: C Reactive Protein 19.1 mg/dL (<1.0)
[2025-01-15] MEDS: VANCOMYCIN 1,500 MG in SODIUM CHLORIDE 0.9% 500 ML 500 ML IVPB STA (14:29)
[2025-01-15] MEDS: LACTATED RINGERS 1,000 ML IV SCH (14:37)
--- NOTE | 2025-01-15 15:38 | US ---
EXAMINATION TYPE: US venous doppler duplex LE LT DATE OF EXAM: 01/15/2025 3:05 PM COMPARISON: 08/25/2023 CLINICAL INDICATION: Male, 79 years old with history of L rib pain, L. left swelling, hx DVT/PE; lt l eg weakness,pain , lt foot swelling x 3 days, no hx of dvt, no thinners TECHNIQUE: The lower extremity deep venous system is examined utilizing real time linear array sonog danii with graded compression, color doppler sonography, and spectral doppler. SIDE PERFORMED: Left FINDINGS: VESSELS IMAGED: Common Femoral Vein Deep Femoral Vein Greater Saphenous Vein * Femoral Vein Popliteal Vein Small Saphenous Vein * Proximal Calf Veins (* superficial vessels) Left Leg: appears negative for DVT shows patency of the vessels. Spectral waveforms are within odell l limits. IMPRESSION: No ultrasound evidence for deep venous thrombosis. [facility], , 01/15/2025 3:36 PM
--- NOTE | 2025-01-15 16:09 | XR ---
EXAMINATION TYPE: XR Hip LT and AP Pelvis DATE OF EXAM: 01/15/2025 4:06 PM COMPARISON: None. CLINICAL INDICATION: Male, 79 years old with history of fever, TTP left hip, atraumatic; PHH, pain TECHNIQUE: XR Hip LT and AP Pelvis; hip was examined in the frontal and lateral projections and a AP pelvis. FINDINGS: No evidence for acute process, joint dislocation or significant soft tissue swelling. Moder ate left hip degenerative osteoarthritis. IMPRESSION: No acute process. [facility], , 01/15/2025 4:07 PM
--- NOTE | 2025-01-15 16:09 | XR ---
EXAMINATION TYPE: XR ankle complete LT, XR foot complete LT DATE OF EXAM: 01/15/2025 4:06 PM COMPARISON: None. CLINICAL INDICATION: Male, 79 years old with history of red/swell 1st metatarsal joint to ank, fever, TTP; PHH, pain TECHNIQUE: XR ankle complete LT, XR foot complete LT; ankle is imaged in frontal, lateral and obliqu e projections. FINDINGS: No acute fracture or dislocation. Lucency along the talar dome possibly reflecting an osteochondral l esion. Ankle soft tissue swelling noted. No acute fracture or dislocation in the left foot. No unexpe cted radiopaque foreign body. IMPRESSION: 1. No evidence of acute fracture. 2. Subcutaneous swelling around the ankle likely secondary to underlying soft tissue injury. 3. Lucency along the lateral margin of the talar dome which could reflect an osteochondral lesion. [facility], , 01/15/2025 4:06 PM
--- NOTE | 2025-01-15 16:20 | CT ---
EXAMINATION TYPE: CT chest angio for PE DATE OF EXAM: 01/15/2025 4:09 PM COMPARISON: CT chest Study 10/29/2024. CLINICAL INDICATION: Male, 79 years old with history of L rib pain, L. left swelling, hx DVT/PE; Bila t leg weakness. Hx of DVT/PE. TECHNIQUE/CONTRAST: CTA scan of the thorax is performed with IV Contrast, patient injected with 100 ml mL of Isovue 370, MIP images are created and reviewed these are created on a separate workstation.. CT DLP: 468 mGycm, Automated exposure control for dose reduction was used. FINDINGS: Pulmonary Artery: There is no evidence for a central filling defect within the pulmonary vasculature to suggest acute pulmonary embolism. Limited evaluation of the segmental and subsegmental branches se condary to bolus timing. The pulmonary artery is of normal size. Lungs/Pleura: No evidence of focal consolidation, pleural effusion or pneumothorax. Bibasilar scarrin g/atelectasis, similar to prior study Airway: Large airways are patent. Heart: Heart is within normal limits for size. Atherosclerosis of the arterial vasculature. Vasculature: No evidence of aortic aneurysm. Mediastinum: No gross evidence of adenopathy. Musculoskeletal: No acute osseous abnormalities Soft Tissues/lymph nodes: Unremarkable. Lower neck: No significant findings. Upper Abdomen: No significant acute findings. Left shoulder arthroplasty. IMPRESSION: No evidence of central or segmental acute pulmonary embolism or acute pulmonary pathology. [facility], , 01/15/2025 4:17 PM
[2025-01-15] MEDS ORDERED: ONDANSETRON 4 MG/2 ML VIAL IVP PRN (16:54)
[2025-01-15] MEDS ORDERED: NALOXONE 0.4 MG/ML 1 ML VIAL IV PRN (16:54)
[2025-01-15] MEDS: SODIUM CHLORIDE 0.9% 1,000 ML IV SCH (17:27)
--- NOTE | 2025-01-15 18:04 | P.HPIM ---
History of Present Illness H&P Date: 01/15/25 History of Presenting Illness: Patient is a pleasant 79-year-old male with a past medical history of CAD status post stenting x 2, peripheral arterial disease status post right iliofemoral patch angioplasty, hypertension, hyperlipidemia, pulmonary emboli, and previous DVT. He presented to the emergency department with a chief complaint thank you of left lower extremity pain and discomfort with inability to bear weight. He reports he first noticed the intermittent pain in his left great toe about a week ago stating nothing could even touch his great toe because even a sheet touching it would cause significant discomfort. He denies having any injuries, cuts, bug bites, or wounds. He reports the pain became constant and intractable about 4 days ago and he was unable to bear any weight. He reports this pain was accompanied by redness, swelling, and subjective fevers. He reports the pain is now from the tip of his left toe radiating all the way up into his left hip describes this pain as sharp and burning. He denies having headache, lightheadedness, dizziness, chest pain, palpitations, shortness of breath, or experiencing any focal numbness in his extremities. Patient does have a history of previous PE and DVT but is no longer on anticoagulation. Patient reports he attempted to control pain at home by staying off of his foot and using crutches and taking tramadol, but reports no relief and only worsening of symptoms so he came to the hospital for evaluation. Upon arrival to our facility, patient underwent evaluation in the emergency room. Vital signs reviewed. Blood pressure 157/80, heart rate 107, respiratory rate 20, temp 99.4 F and SpO2 of 97% on room air. Shortly after arrival patient's temp elevated to 102.2 F. Labs completed and reviewed. CBC showing microcytic anemia with hemoglobin of 12.3. Coagulation profile normal findings. BMP revealing sodium of 136 and glucose of 114. Lactic acid was 1.3. Calcium 9.5. Magnesium 2.1. Liver profile unremarkable. Troponin negative at less than 0.012. CRP was elevated at 19.1. Left lower extremity venous Doppler completed negative for DVT. X-ray left foot and ankle negative for acute fracture showing subcutaneous swelling around the ankle and lucency along the lateral margin of the talar bone possibly reflecting an osteochondral lesion. X-ray left hip negative for acute process revealing moderate degeneration and osteoarthritis. CTA chest was completed negative for pulmonary emboli or other acute process. Patient admitted under services with consultation to infectious disease. Review of systems: Pertinent positives and negatives as discussed in HPI, a complete review of systems was performed and all other systems are negative. Physical exam: Vital signs reviewed and stable. General: Nontoxic, no distress and appears stated age. Derm: Skin warm and dry, normal coloration for ethnicity. Head: Atraumatic, normocephalic and symmetric. Eyes: EOM's intact, no lid lag, and anicteric sclera Mouth: no lip lesions, mucus membranes moist Cardiovascular: regular rate and rhythm with normal S1S2, no murmur, positive posterior tibial pulses bilaterally, and cap refill < 2 seconds. Lungs: Respirations even, regular, and unlabored on room air. Lungs CTA bilaterally, no rhonchi, no rales, no wheezing, and no accessory muscle usage. Abdominal: soft, nontender to palpation, no guarding, no appreciable organomegaly Ext: No gross muscle atrophy, no edema, no contractures. Movement and sensation intact. Patient with moderate swelling and erythema surrounding left foot great toe extending into dorsal surface of left foot and ankle. Allodynia and thickened toenail also present to left great toe. Neuro: Speech clear, face symmetrical and CN II-XII grossly intact with no noted focal neuro deficits Psych: Alert and oriented to person, place, time, and situation. Appropriate and pleasant affect. Assessment and Plan of Care: Left lower extremity cellulitis, rule out osteoarthritis Sepsis on arrival secondary to above as evidenced by temp of 102.2 F and heart rate of 107 -IV antibiotics with cefepime 2 g every 8 hours and vancomycin 1500 mg every 12 hours with close monitoring of vancomycin trough and renal function to watch for any signs of vancomycin associated renal toxicity. -Symptomatic care and pain management. Tylenol 650 mg every 6 hours as needed for mild pain/fever, tramadol 50 mg every 6 hours as needed for moderate pain, and Dilaudid 1 mg IVP every 3 hours as needed for severe pain. -Consult placed to infectious disease, appreciate recommendations -Follow-up on blood culture results. Peripheral arterial disease -Patient's pain and symptoms he describes are similar to PAD, however left foot foot with increased redness, swelling, and is warm not cold. We will obtain an arterial doppler to rule out an occlusion with collateral circulation. -Symptomatic care and pain management. Tylenol 650 mg every 6 hours as needed for mild pain/fever, tramadol 50 mg every 6 hours as needed for moderate pain, and Dilaudid 1 mg IVP every 3 hours as needed for severe pain. -Continue aspirin 81 mg daily and atorvastatin 40 mg nightly. CAD status post stenting Hypertension Hyperlipidemia -Continue daily medication regimen with amlodipine 5 mg twice daily, aspirin 81 mg daily, atenolol 50 mg daily and 25 mg nightly, atorvastatin 40 mg nightly, and Zetia 10 mg daily. History of PE and previous DVT - No longer on anticoagulation. DVT prophylaxis with Lovenox 40 mg daily. Data and imaging reviewed: As stated above in HPI The patient is admitted with an anticipated greater than 2 midnight stay for evaluation of sepsis secondary to cellulitis CODE STATUS: Full code DVT prophylaxis: Lovenox Discussed with: Patient, patient's at bedside, RN, and ED physician Anticipated discharge date: Pending clinical course Anticipated discharge place: Home Patient was seen independently by Nurse Practitioner. This document was prepared using [employer] dictation software. Please allow for errors in prepared foods team leader while rare they do occur. Nigel Gonzalez NP rendered care for this patient independently, reviewed the findings and plan as documented in the note above and agree with plan. I did not physically speak with or examine the patient on this date. Past Medical History Past Medical History: Cancer, Deep Vein Thrombosis (DVT), Hyperlipidemia, Hypert ension, Osteoarthritis (OA), Pneumonia Additional Past Medical History / Comment(s): Hx Pneumonia in 1963. Hx basal cell skin cancer on face X2. Arthiritis bilateral hands and bursitis bilateral hips-responded well to injections. Vitamin D Deficiency. 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 History of Any Multi-Drug Resistant Organisms: None Reported Past Surgical History: Hernia Repair, Joint Replacement, Orthopedic Surgery, Tonsillectomy Additional Past Surgical History / Comment(s): Right ankle replacement, skin cancer removed from face X2, bilateral total knee replacements, multiple arthroscopies of bilateral knees, right hand and left ankle fractures, surgi liz repaired, steel plate and pin placed in little finger and later removed, bilateral eye surgery for glass shard removal, hernia repair X2. Past Anesthesia/Blood Transfusion Reactions: No Reported Reaction Additional Past Anesthesia/Blood Transfusion Reaction / Comment(s): Has never received blood. Past Psychological History: No Psychological Hx Reported Smoking Status: Former smoker Past Alcohol Use History: None Reported Past Drug Use History: None Reported - Past Family History Father Additional Family Medical History / Comment(s): Father served in [place] and came home with mental health issues. He was an alcoholic and suddenly at the age of 48. Mother Family Medical History: Dementia Additional Family Medical History / Comment(s): Mother passed at age 94. She had slight dementia starting. Medications and Allergies Home Medications Medication Instructions Recorded Confirmed Type Vitamin B Complex 1 tab PO Q2D 07/13/14 08/25/23 History Vitamin E (Dl,Tocopheryl Acet) 400 unit PO DAILY 07/13/14 08/25/23 History [Vitamin E (400 Iu = 180 mg)] atenoloL 25 mg PO HS 02/13/16 08/25/23 History Aspirin EC [Ecotrin Low Dose] 81 mg PO DAILY 06/16/22 08/25/23 History Magnesium Oxide [Magox 400] 400 mg PO DAILY 14 Days #14 tablet 06/16/22 08/25/23 Rx atenoloL 50 mg PO QAM 06/16/22 08/25/23 History lisinopriL [Prinivil] 20 mg PO DAILY 06/16/22 08/25/23 History traZODone HCL [Desyrel] 75 mg PO HS 06/16/22 08/25/23 History Melatonin 10 mg PO HS 12/05/22 08/25/23 History Omeprazole [PriLOSEC] 40 mg PO DAILY 12/05/22 08/25/23 History Baclofen [Lioresal] 10 mg PO TID 08/25/23 08/25/23 History Fluticasone Nasal [place] [Flonase 2 spray EA NOSTRIL DAILY 08/25/23 08/25/23 History Nasal [place]] Rosuvastatin [Crestor] 20 mg PO HS 08/25/23 08/25/23 History Apixaban Initiation Dose--VTE 10 mg PO BID #74 tab 08/26/23 Rx [Eliquis Initiation Dosing for VTE Treatment] Allergies Allergy/AdvReac Type Severity Reaction Status Date / Time No Known Allergies Allergy Verified 01/15/25 11:27 Physical Exam Vitals: Vital Signs Temp Pulse Resp BP Pulse Ox 01/15/25 14:34 99.2 F 90 17 140/79 96 01/15/25 12:34 102.2 F H 01/15/25 11:22 99.4 F 107 H 20 157/80 97 Intake and Output 01/15/25 01/15/25 01/15/25 06:59 14:59 22:59 Other: Weight 90.718 kg Results CBC & Chem 7: 01/15/25 12:50 01/15/25 12:50 Labs: Abnormal Lab Results - Last 24 Hours (Table) 01/15/25 01/15/25 Range/Units 12:50 12:50 RBC 4.32 L (4.40-5.60) 10*6/uL Hgb 12.3 L (13.0-17.0) g/dL Hct 37.7 L (39.6-50.0) % MPV 8.8 L (9.5-12.2) fL Lymphocytes # 0.50 L (0.90-5.00) 10*3/uL Sodium 136 L (137-145) mmol/L Glucose 114 H (74-99) mg/dL C-Reactive Protein 19.1 H (<1.0) mg/dL
--- NOTE | 2025-01-15 19:23 | US ---
EXAMINATION TYPE: US arterial LE multi level DATE OF EXAM: 01/15/2025 7:08 PM COMPARISONS: None. CLINICAL INDICATION: Male, 79 years old with history of pain in great toe extending upward to L hip h x PAD; Toe pain left foot. TECHNIQUE: Systolic pressures were taken of the upper and lower extremity arteries with ankle-brachia l indices and toe brachial indices calculated bilaterally. History of: Smoker: No Hypertension: Yes Diabetic: No Hyperlipidemia: Yes TIA/CVA: No Previous Vascular Surgery: Yes CAD: No KS: No Vascular Ulcers: No Claudication: No Gangrene: No FINDINGS: Doppler Waveforms: Right: Multiphasic Left: Multiphasic Brachial Artery systolic pressure: Right: 141 Left: 150 Posterior Tibial artery systolic pressure: Right: 155 Left: 182 Dorsalis Pedis artery systolic pressure: Right: 158 Left: >240 Toe artery systolic pressure: Right: 41 Left: 36 Ankle-Brachial Indices: Right: 1.05 Left: 1.21 Toe Brachial Indices: Right: 0.27 Left: 0.24 (Normal > 0.6; Mild 0.35 - 0.59, Moderate 0.12 - 0.34, Severe <0.12) IMPRESSION: PAT: Right: Normal 0.9 - 1.4, Left: Normal 0.9 - 1.4, TBI: Right: 0.27 suggesting moderate PAD. Left: 0.24 suggesting moderate PAD. Recommend referral to vascular specialist as clinically warranted. [facility], , 01/15/2025 7:21 PM
[2025-01-15] MEDS: traZODone HCL 50 MG TAB PO SCH (20:35)
[2025-01-15] MEDS: MELATONIN 5 MG TABLET PO SCH (20:35)
[2025-01-15] MEDS: amLODIPine 5 MG TAB PO SCH (20:35)
[2025-01-15] MEDS: atenoloL 25 MG TAB PO SCH (20:35)
[2025-01-15] MEDS: ATORVASTATIN 40 MG TAB PO SCH (20:36)
[2025-01-15] MEDS: FAMOTIDINE 20 MG TAB PO SCH (20:36)
[2025-01-15] MEDS: CEFEPIME 2 GM in SODIUM CHLORIDE 0.9% 100 ML IVPB SCH (22:59)
[2025-01-16] MEDS: VANCOMYCIN 1,500 MG in SODIUM CHLORIDE 0.9% 500 ML 500 ML IVPB SCH ×2 (02:24→04:08)
[2025-01-16] MEDS: PANTOPRAZOLE 40 MG TABLET PO SCH (07:18)
[2025-01-16 07:59] LABS: African American GFR (CKD) >90 (>60 ml/min/1.73 sqM); Anion Gap 8 mmol/L; Blood Urea Nitrogen 14 mg/dL (9-20); Calcium 8.9 mg/dL (8.4-10.2); Carbon Dioxide 23 mmol/L (22-30); Chloride 107 mmol/L (98-107); Glucose 96 mg/dL (74-99); Non-African American GFR(CKD) >90 (>60 ml/min/1.73 sqM); Potassium 4.4 mmol/L (3.5-5.1); Sodium 138 mmol/L (137-145)
[2025-01-16 10:18] LABS: HCT 34.8 % (39.6-50.0); HGB 10.7 g/dL (13.0-17.0); MCH 27.7 pg (27.0-32.0); MCHC 30.7 g/dL (32.0-37.0); MCV 90.2 FL (80.0-97.0); Mean Platelet Volume 9.6 FL (9.5-12.2); NRBC Per 100 WBC 0 X 10*3/uL (0.00-0.01); Platelet Count 264 X 10*3/uL (140-440); RBC 3.86 X 10*6/uL (4.40-5.60); RDW 15.7 % (11.5-14.5)
[2025-01-16] MEDS: ASPIRIN 81 MG PO SCH (11:23)
[2025-01-16] MEDS: ENOXAPARIN 40 MG/0.4 ML SYRINGE SQ SCH (11:23)
[2025-01-16] MEDS: CEFEPIME 2 GM in SODIUM CHLORIDE 0.9% 100 ML IVPB SCH (11:23)
--- NOTE | 2025-01-16 12:41 | P.PN ---
Subjective Progress Note Date: 01/16/25 Hospital course: Patient is a pleasant 79-year-old male with a past medical history of CAD status post stenting x 2, peripheral arterial disease status post right iliofemoral patch angioplasty, hypertension, hyperlipidemia, pulmonary emboli, and previous DVT. He presented to the emergency department with a chief complaint thank you of left lower extremity pain and discomfort with inability to bear weight. He reports he first noticed the intermittent pain in his left great toe about a week ago stating nothing could even touch his great toe because even a sheet touching it would cause significant discomfort. He denies having any injuries, cuts, bug bites, or wounds. He reports the pain became constant and intractable about 4 days ago and he was unable to bear any weight. He reports this pain was accompanied by redness, swelling, and subjective fevers. He reports the pain is now from the tip of his left toe radiating all the way up into his left hip describes this pain as sharp and burning. He denies having headache, lightheadedness, dizziness, chest pain, palpitations, shortness of breath, or experiencing any focal numbness in his extremities. Patient does have a history of previous PE and DVT but is no longer on anticoagulation. Patient reports he attempted to control pain at home by staying off of his foot and using crutches and taking tramadol, but reports no relief and only worsening of symptoms so he came to the hospital for evaluation. Upon arrival to our facility, patient underwent evaluation in the emergency room. Vital signs reviewed. Blood pressure 157/80, heart rate 107, respiratory rate 20, temp 99.4 F and SpO2 of 97% on room air. Shortly after arrival patient's temp elevated to 102.2 F. Labs completed and reviewed. CBC showing microcytic anemia with hemoglobin of 12.3. Coagulation profile normal findings. BMP revealing sodium of 136 and glucose of 114. Lactic acid was 1.3. Calcium 9.5. Magnesium 2.1. Liver profile unremarkable. Troponin negative at less than 0.012. CRP was elevated at 19.1. Left lower extremity venous Doppler completed negative for DVT. X-ray left foot and ankle negative for acute fracture showing subcutaneous swelling around the ankle and lucency along the lateral margin of the talar bone possibly reflecting an osteochondral lesion. X-ray left hip negative for acute process revealing moderate degeneration and osteoarthritis. CTA chest was completed negative for pulmonary emboli or other acute process. Patient admitted under services with consultation to infectious disease. Physical exam: Patient was seen and fully evaluated at bedside this morning. He has had significant improvement of swelling and erythema to his left great toe and foot. Allodynia remains. Patient currently reports pain remains 6/10 at this time. He denies any other complaints or concerns. Vital signs reviewed and stable. General: Nontoxic, no distress and appears stated age. Derm: Skin warm and dry, normal coloration for ethnicity. Head: Atraumatic, normocephalic and symmetric. Eyes: EOM's intact, no lid lag, and anicteric sclera Mouth: no lip lesions, mucus membranes moist Cardiovascular: regular rate and rhythm with normal S1S2, no murmur, positive posterior tibial pulses bilaterally, and cap refill < 2 seconds. Lungs: Respirations even, regular, and unlabored on room air. Lungs CTA bilaterally, no rhonchi, no rales, no wheezing, and no accessory muscle usage. Abdominal: soft, nontender to palpation, no guarding, no appreciable organomegaly Ext: No gross muscle atrophy, no edema, no contractures. Movement and sensation intact. Patient with mild swelling and erythema surrounding left foot great toe extending into dorsal surface of left foot and ankle. Allodynia and thickened toenail also present to left great toe. Neuro: Speech clear, face symmetrical and CN II-XII grossly intact with no noted focal neuro deficits Psych: Alert and oriented to person, place, time, and situation. Appropriate and pleasant affect. Assessment and Plan of Care: Left lower extremity cellulitis, rule out osteoarthritis Sepsis on arrival secondary to above as evidenced by temp of 102.2 F and heart rate of 107 -IV antibiotics with cefepime 2 g every 8 hours and vancomycin 1500 mg every 12 hours with close monitoring of vancomycin trough and renal function to watch for any signs of vancomycin associated renal toxicity. -Symptomatic care and pain management. Tylenol 650 mg every 6 hours as needed for mild pain/fever, tramadol 50 mg every 6 hours as needed for moderate pain, and Dilaudid 1 mg IVP every 3 hours as needed for severe pain. -Consult placed to infectious disease, appreciate recommendations -Follow-up on blood culture results. Peripheral arterial disease -Patient's pain and symptoms he describes are similar to PAD, however left foot foot with increased redness, swelling, and is warm not cold. Arterial Doppler suggestive of moderate PAD. -Symptomatic care and pain management. Tylenol 650 mg every 6 hours as needed for mild pain/fever, tramadol 50 mg every 6 hours as needed for moderate pain, and Dilaudid 1 mg IVP every 3 hours as needed for severe pain. -Continue aspirin 81 mg daily and atorvastatin 40 mg nightly. CAD status post stenting Hypertension Hyperlipidemia -Continue daily medication regimen with amlodipine 5 mg twice daily, aspirin 81 mg daily, atenolol 50 mg daily and 25 mg nightly, atorvastatin 40 mg nightly, and Zetia 10 mg daily. History of PE and previous DVT - No longer on anticoagulation. DVT prophylaxis with Lovenox 40 mg daily. Data and imaging reviewed: Arterial Doppler suggestive of moderate PAD. Vital signs reviewed. Blood pressure 128/64, heart rate 90, respiratory rate 16, temp 98.6 F, and SpO2 of 93% on room air. Morning labs completed and reviewed. CBC showing normocytic anemia with hemoglobin of 10.7. ESR remains elevated at 78. BMP unremarkable. Blood glucose 96. CRP also remains elevated but improving from 19.1 down to 16.30 this morning. CODE STATUS: Full code DVT prophylaxis: Lovenox Anticipated discharge date: Pending clinical course Anticipated discharge place: Home Patient was seen independently by Nurse Practitioner. This document was prepared using [employer] dictation software. Please allow for errors in chain saw mechanic while rare they do occur. Nigel Gonzalez NP rendered care for this patient independently, reviewed the findings and plan as documented in the note above and agree with plan. I did not physically speak with or examine the patient on this date. Objective - Vital Signs Vital signs: Vital Signs Temp 99.5 F 01/15/25 19:27 Pulse 90 01/16/25 07:20 Resp 16 01/16/25 07:20 BP 128/64 01/16/25 07:20 Pulse Ox 94 L 01/16/25 04:39 FiO2 Intake & Output 01/15/25 01/16/25 01/16/25 18:59 06:59 18:59 Weight 90.718 kg - Labs CBC & Chem 7: 01/16/25 06:37 01/16/25 06:37 Labs: Abnormal Lab Results - Last 24 Hours (Table) 01/15/25 01/15/25 Range/Units 12:50 12:50 RBC 4.32 L (4.40-5.60) 10*6/uL Hgb 12.3 L (13.0-17.0) g/dL Hct 37.7 L (39.6-50.0) % MPV 8.8 L (9.5-12.2) fL Lymphocytes # 0.50 L (0.90-5.00) 10*3/uL Sodium 136 L (137-145) mmol/L Glucose 114 H (74-99) mg/dL C-Reactive Protein 19.1 H (<1.0) mg/dL
[2025-01-16] MEDS: atenoloL 50 MG TAB PO SCH (12:52)
[2025-01-16] MEDS: EZETIMIBE 10 MG TAB PO SCH (12:52)
[2025-01-16] MEDS: HYDROmorphone 1 MG/ML 1 ML SYRINGE IVP PRN (13:02)
[2025-01-16] MEDS: ACETAMINOPHEN TAB 325 MG TAB PO PRN (21:49)
--- NOTE | 2025-01-16 22:28 | P.CONS ---
History of Present Illness - Reason for Consult Consult date: 01/16/25 Left foot cellulitis Requesting physician: Nigel Gonzalez - Chief Complaint Left big toe and foot pain and swelling x days - History of Present Illness Patient is a 79-year-old male with a past medical history significant for hyperlipidemia hypertension osteoarthritis pneumonia skin cancer presenting to the hospital for evaluation of left big toe pain swelling and redness patient mention symptoms started last Thursday when he started having problem with the pain to the left big toe has been dealing with the infected toenail left big toe for a while has been complaining of pain and swelling especially to left big toe with some additional reports describes the pain to be sharp especially 1 touch moderate intensity without radiation with associated swelling and redness did not have any open wounds or drainage on presentation to hospital patient did have temperature of 102.2 F patient was mildly tachycardic but not hypotensive mildly hypoxic currently on 3 L nasal cannula oxygen he did have a white count of 7.78 ESR of 85 creatinine 0.80 electrolytes are normal liver enzymes are normal CRP is elevated patient did have venous Doppler study left leg appears negative for DVT did have a foot and ankle x-ray no evidence for acute fracture subcutaneous swelling around the ankle did not mention any bony changes to the left big toe patient has been treated with vancomycin and cefepime infectious disease was consulted for further management of antibiotic therapy Review of Systems Positive point and negatives has been mentioned in the HPI, complete review of systems was performed and all other systems are negative Past Medical History Past Medical History: Cancer, Deep Vein Thrombosis (DVT), Hyperlipidemia, Hypertension, Osteoarthritis (OA), Pneumonia Additional Past Medical History / Comment(s): Hx Pneumonia in 1963. Hx basal cell skin cancer on face X2. Arthiritis bilateral hands and bursitis bilateral hips-responded well to injections. Vitamin D Deficiency. Urethral stricture treated surgically with laser, able to urinate but does not completely empty bladder - self caths once or twice daily, hx UTIs prior to self cathing. History of Any Multi-Drug Resistant Organisms: None Reported Past Surgical History: Hernia Repair, Joint Replacement, Orthopedic Surgery, Tonsillectomy Additional Past Surgical History / Comment(s): Right ankle replacement, skin cancer removed from face X2, bilateral total knee replacements, multiple arthroscopies of bilateral knees, right hand and left ankle fractures, surgically repaired, steel plate and pin placed in little finger and later removed, bilateral eye surgery for glass shard removal, hernia repair X2. Past Anesthesia/Blood Transfusion Reactions: No Reported Reaction Additional Past Anesthesia/Blood Transfusion Reaction / Comm: Has never received blood. Past Psychological History: No Psychological Hx Reported Additional Psychological History / Comment(s): Pt lives in a single level home with his . He is retired. He is independent. He drives a car. Smoking Status: Former smoker Past Alcohol Use History: None Reported Additional Past Alcohol Use History / Comment(s): Smoked from [id number], quit for 8 yrs, resumed smoking in 1983 and quit for good in 2001. Past Drug Use History: None Reported - Past Family History Father Additional Family Medical History / Comment(s): Father served in [employer] and came home with mental health issues. He was an alcoholic and suddenly at the age of 48. Mother Family Medical History: Dementia Additional Family Medical History / Comment(s): Mother passed at age 94. She had slight dementia starting. Medications and Allergies Home Medications Medication Instructions Recorded Confirmed Type Vitamin B Complex 1 tab PO DAILY 07/13/14 01/15/25 History Vitamin E (Dl,Tocopheryl Acet) 400 unit PO DAILY 07/13/14 01/15/25 History [Vitamin E (400 Iu = 180 mg)] atenoloL 25 mg PO HS 02/13/16 01/15/25 History Aspirin EC [Ecotrin Low Dose] 81 mg PO DAILY 06/16/22 01/15/25 History Magnesium Oxide [Magox 400] 400 mg PO DAILY 14 Days #14 tablet 06/16/22 01/15/25 Rx atenoloL 50 mg PO DAILY 06/16/22 01/15/25 History traZODone HCL [Desyrel] 50 mg PO HS 06/16/22 01/15/25 History Omeprazole [PriLOSEC] 40 mg PO DAILY 12/05/22 01/15/25 History Rosuvastatin [Crestor] 20 mg PO HS 08/25/23 01/15/25 History Ezetimibe [Zetia] 10 mg PO DAILY 01/15/25 01/15/25 History Famotidine 20 mg PO BID 01/15/25 01/15/25 History Folic Acid 1 mg PO DAILY 01/15/25 01/15/25 History amLODIPine [Norvasc] 5 mg PO BID 01/15/25 01/15/25 History metHOTREXate sodium 25 mg PO ANAYA@199901/15/25 01/15/25 History methylPREDNISolone [Medrol Dose See Taper PO DIRECTED PRN 01/15/25 01/15/25 History Pack] Allergies Allergy/AdvReac Type Severity Reaction Status Date / Time No Known Allergies Allergy Verified 01/15/25 19:48 Physical Exam Vitals: Vital Signs Temp Pulse Resp BP Pulse Ox 01/16/25 09:14 98.6 F 99 128/67 93 L 01/16/25 08:56 18 94 L 01/16/25 07:20 90 16 128/64 01/16/25 06:49 99 18 123/75 01/16/25 04:39 82 18 115/61 94 L 01/16/25 04:06 82 16 135/69 92 L 01/15/25 19:27 99.5 F 91 19 135/69 94 L 01/15/25 17:29 99.2 F 90 19 140/79 94 L 01/15/25 14:34 99.2 F 90 17 140/79 96 01/15/25 12:34 102.2 F H Intake and Output 01/15/25 01/16/25 01/16/25 22:59 06:59 14:59 Other: Weight 90.718 kg GENERAL DESCRIPTION: Elderly male lying in bed, no distress. No tachypnea or accessory muscle of respiration use. HEENT: Shows Pallor , no scleral icterus. Oral mucous membrane is dry. NECK: Trachea central, no thyromegaly. LUNGS: Unlabored breathing. Clear to auscultation anteriorly. No wheeze or crackle. HEART: S1, S2, regular rate and rhythm. No loud murmur ABDOMEN: Soft, no tenderness , guarding or rigidity, no organomegaly EXTREMITIES: Left great toe did have a some swelling and tenderness to touch no open wound or any drainage SKIN: No rash, no masses palpable. NEUROLOGICAL: The patient is awake, alert, oriented x3, mood and affect normal. Results CBC & Chem 7: 01/16/25 06:37 01/16/25 06:37 Labs: Abnormal Lab Results - Last 24 Hours (Table) 01/15/25 01/15/25 01/15/25 Range/Units 12:50 12:50 12:50 RBC 4.32 L (4.40-5.60) 10*6/uL Hgb 12.3 L (13.0-17.0) g/dL Hct 37.7 L (39.6-50.0) % MCHC (32.0-37.0) g/dL RDW (11.5-14.5) % MPV 8.8 L (9.5-12.2) fL Lymphocytes # 0.50 L (0.90-5.00) 10*3/uL ESR 85 H (0-20) mm/Hr Sodium 136 L (137-145) mmol/L Glucose 114 H (74-99) mg/dL C-Reactive Protein 19.1 H (<1.0) mg/dL 01/16/25 01/16/25 01/16/25 Range/Units 06:37 06:37 06:37 RBC 3.86 L (4.40-5.60) 10*6/uL Hgb 10.7 L (13.0-17.0) g/dL Hct 34.8 L (39.6-50.0) % MCHC 30.7 L (32.0-37.0) g/dL RDW 15.7 H (11.5-14.5) % MPV (9.5-12.2) fL Lymphocytes # (0.90-5.00) 10*3/uL ESR 78 H (0-20) mm/Hr Sodium (137-145) mmol/L Glucose (74-99) mg/dL C-Reactive Protein 16.30 H (<1.0) mg/dL Assessment and Plan (1) Cellulitis of left foot Current Visit: Yes Status: Acute Code(s): L03.116 - CELLULITIS OF LEFT LOWER LIMB SNOMED Code(s): 50350014050972919 (2) Sepsis Current Visit: Yes Status: Acute Code(s): A41.9 - SEPSIS, UNSPECIFIED ORGANISM SNOMED Code(s): 47292249 Plan: 1patient presented to hospital with sepsis in this patient who did have fever and tachycardia meeting currently for SIRS/sepsis source and left big toe cellulitis in this patient who did have a chronic infection of the left big toenail with a complaint of cellulitis x-ray did not show any bony changes patient currently denies any open wound or drainage possibly dealing with gram- positive skin terence 2-will suggest to discontinue vancomycin and cefepime 3-we will treat the patient with cefazolin 2 g every 8 hours and if the patient continued to improve and cultures are negative may consider finishing therapy with oral Keflex Multiple question concern answered We will follow on clinical condition and cultures to further adjust medication if needed Thank you for this consultation we will follow the patient along with you Dictation was produced using [employer] dictation software. please excuse any grammatical, word or spelling errors. Time with Patient: Greater than 30
[2025-01-17 06:48] LABS: Basophils # (A) 0.02 10*3/uL (0.00-0.10); Basophils % (A) 0.3 %; Eosinophils # (A) 0.21 10*3/uL (0.04-0.35); Eosinophils % (A) 3.6 %; HCT 32.9 % (39.6-50.0); HGB 10.6 g/dL (13.0-17.0); Lymphocytes # (A) 0.39 10*3/uL (0.90-5.00); Lymphocytes % (A) 6.7 %; MCH 28.3 pg (27.0-32.0); MCHC 32.2 g/dL (32.0-37.0); Mean Platelet Volume 8.7 fL (9.5-12.2); Monocytes # (A) 0.71 10*3/uL (0.20-1.00); Monocytes % (A) 12.2 %; Neutrophils # (A) 4.46 10*3/uL (1.80-7.70); Neutrophils % (A) 76.9 %; Platelet Count 272 10*3/uL (140-440); RBC 3.74 10*6/uL (4.40-5.60); RDW 15.4 % (11.5-14.5); WBC 5.81 10*3/uL (4.50-10.00)
[2025-01-17 07:00] LABS: African American GFR (CKD) >90 (>60 ml/min/1.73 sqM); Anion Gap 5 mmol/L; Blood Urea Nitrogen 13 mg/dL (9-20); Calcium 8.6 mg/dL (8.4-10.2); Carbon Dioxide 26 mmol/L (22-30); Chloride 106 mmol/L (98-107); Glucose 129 mg/dL (74-99); Non-African American GFR(CKD) >90 (>60 ml/min/1.73 sqM); Potassium 3.6 mmol/L (3.5-5.1); Sodium 137 mmol/L (137-145)
[2025-01-17] MEDS: COLCHICINE 0.6 MG EACH PO STA (11:37)
--- NOTE | 2025-01-17 11:37 | P.PN ---
Subjective Progress Note Date: 01/17/25 Hospital course: Patient is a pleasant 79-year-old male with a past medical history of CAD status post stenting x 2, peripheral arterial disease status post right iliofemoral patch angioplasty, hypertension, hyperlipidemia, pulmonary emboli, and previous DVT. He presented to the emergency department with a chief complaint thank you of left lower extremity pain and discomfort with inability to bear weight. He reports he first noticed the intermittent pain in his left great toe about a week ago stating nothing could even touch his great toe because even a sheet touching it would cause significant discomfort. He denies having any injuries, cuts, bug bites, or wounds. He reports the pain became constant and intractable about 4 days ago and he was unable to bear any weight. He reports this pain was accompanied by redness, swelling, and subjective fevers. He reports the pain is now from the tip of his left toe radiating all the way up into his left hip describes this pain as sharp and burning. He denies having headache, lightheadedness, dizziness, chest pain, palpitations, shortness of breath, or experiencing any focal numbness in his extremities. Patient does have a history of previous PE and DVT but is no longer on anticoagulation. Patient reports he attempted to control pain at home by staying off of his foot and using crutches and taking tramadol, but reports no relief and only worsening of symptoms so he came to the hospital for evaluation. Upon arrival to our facility, patient underwent evaluation in the emergency room. Vital signs reviewed. Blood pressure 157/80, heart rate 107, respiratory rate 20, temp 99.4 F and SpO2 of 97% on room air. Shortly after arrival patient's temp elevated to 102.2 F. Labs completed and reviewed. CBC showing microcytic anemia with hemoglobin of 12.3. Coagulation profile normal findings. BMP revealing sodium of 136 and glucose of 114. Lactic acid was 1.3. Calcium 9.5. Magnesium 2.1. Liver profile unremarkable. Troponin negative at less than 0.012. CRP was elevated at 19.1. Left lower extremity venous Doppler completed negative for DVT. X-ray left foot and ankle negative for acute fracture showing subcutaneous swelling around the ankle and lucency along the lateral margin of the talar bone possibly reflecting an osteochondral lesion. X-ray left hip negative for acute process revealing moderate degeneration and osteoarthritis. CTA chest was completed negative for pulmonary emboli or other acute process. Patient admitted under services with consultation to infectious disease. Arterial Doppler suggestive of moderate PAD. Physical exam: Patient was seen and fully evaluated at bedside this morning. He continues to have significant improvement of swelling and erythema to his left great toe, foot, and ankle . Allodynia remains and patient remains unable to bear weight on the left lower extremity. PT/OT did evaluate and confirmed patient's difficulties with bearing weight on left foot. Patient also continues to run low-grade temps. Vital signs reviewed and stable. General: Nontoxic, no distress and appears stated age. Derm: Skin warm and dry, normal coloration for ethnicity. Head: Atraumatic, normocephalic and symmetric. Eyes: EOM's intact, no lid lag, and anicteric sclera Mouth: no lip lesions, mucus membranes moist Cardiovascular: regular rate and rhythm with normal S1S2, no murmur, positive posterior tibial pulses bilaterally, and cap refill < 2 seconds. Lungs: Respirations even, regular, and unlabored on room air. Lungs CTA bilaterally, no rhonchi, no rales, no wheezing, and no accessory muscle usage. Abdominal: soft, nontender to palpation, no guarding, no appreciable org anomegaly Ext: No gross muscle atrophy, no edema, no contractures. Movement and sensation intact. Swelling and erythema to his left great toe, foot, and ankle has significantly improved/nearly resolved. Allodynia and thickened toenail also present to left great toe. Neuro: Speech clear, face symmetrical and CN II-XII grossly intact with no noted focal neuro deficits Psych: Alert and oriented to person, place, time, and situation. Appropriate and pleasant affect. Assessment and Plan of Care: Left lower extremity cellulitis Sepsis on arrival secondary to above as evidenced by temp of 102.2 F and heart rate of 107 -IV antibiotics with cefazolin 2 g every 8 hours. -Symptomatic care and pain management. Tylenol 650 mg every 6 hours as needed for mild pain/fever, tramadol 50 mg every 6 hours as needed for moderate pain, and Dilaudid 1 mg IVP every 3 hours as needed for severe pain. -Infectious disease following, discussed plan of care with Dr. Worthington, -Blood culture showing no growth to date. -Patient continues to have significant improvement of swelling and erythema to his left great toe, foot, and ankle but significant pain remains. Discussed with infectious disease physician will place order for colchicine 1.2 mg p.o. x 1 dose now followed by 0.6 mg 1 hour later and continue to monitor closely for improvement. Peripheral arterial disease -Patient's pain and symptoms he describes are similar to PAD, however left foot foot with increased redness, swelling, and is warm not cold. Arterial Doppler suggestive of moderate PAD without reported occlusion. -Symptomatic care and pain management. Tylenol 650 mg every 6 hours as needed for mild pain/fever, tramadol 50 mg every 6 hours as needed for moderate pain, and Dilaudid 1 mg IVP every 3 hours as needed for severe pain. -Continue aspirin 81 mg daily and atorvastatin 40 mg nightly. - Patient to follow-up outpatient with vascular surgeon, Dr. Loredo CAD status post stenting Hypertension Hyperlipidemia -Continue daily medication regimen with amlodipine 5 mg twice daily, aspirin 81 mg daily, atenolol 50 mg daily and 25 mg nightly, atorvastatin 40 mg nightly, and Zetia 10 mg daily. History of PE and previous DVT - No longer on anticoagulation. DVT prophylaxis with Lovenox 40 mg daily. Data and imaging reviewed: Vital signs reviewed. Blood pressure 150/75, heart rate 88, respiratory rate 16, temp 99.3 F, and SpO2 of 94% on room air. Temperature high over the past 24 hours was 100.2 F. Morning labs completed and reviewed. CBC showing normocytic anemia with hemoglobin of 10.6. BMP unremarkable. Blood glucose 129. Calcium 8.6. CODE STATUS: Full code DVT prophylaxis: Lovenox Anticipated discharge date: Pending clinical course Anticipated discharge place: Home Patient was seen independently by Nurse Practitioner. This document was prepared using [employer] dictation software. Please allow for errors in die repair while rare they do occur. Nigel Gonzalez NP rendered care for this patient independently, reviewed the findings and plan as documented in the note above and agree with plan. I did not physically speak with or examine the patient on this date. Objective - Vital Signs Vital signs: Vital Signs Temp 99.1 F 01/17/25 02:00 Pulse 100 01/17/25 02:00 Resp 19 01/16/25 20:50 BP 115/69 01/17/25 02:00 Pulse Ox 97 01/17/25 02:00 FiO2 Intake & Output 01/16/25 01/17/25 01/17/25 18:59 06:59 18:59 Output Total 1700 Balance -1700 Weight 90.718 kg Output: Urine 1700 Other: Voiding Method Urinal # Voids 1 - Labs CBC & Chem 7: 01/17/25 06:29 01/17/25 06:29 Labs: Abnormal Lab Results - Last 24 Hours (Table) 01/15/25 01/16/25 01/16/25 Range/Units 12:50 06:37 06:37 RBC 3.86 L (4.40-5.60) X 10*6/uL Hgb 10.7 L (13.0-17.0) g/dL Hct 34.8 L (39.6-50.0) % MCHC 30.7 L (32.0-37.0) g/dL RDW 15.7 H (11.5-14.5) % MPV (9.5-12.2) fL Lymphocytes # (0.90-5.00) 10*3/uL ESR 85 H 78 H (0-20) mm/Hr Creatinine (0.66-1.25) mg/dL Glucose (74-99) mg/dL C-Reactive Protein (0.00-0.80) mg/dL 01/16/25 01/17/25 01/17/25 Range/Units 06:37 06:29 06:29 RBC 3.74 L (4.40-5.60) X 10*6/uL Hgb 10.6 L (13.0-17.0) g/dL Hct 32.9 L (39.6-50.0) % MCHC (32.0-37.0) g/dL RDW (11.5-14.5) % MPV 8.7 L (9.5-12.2) fL Lymphocytes # 0.39 L (0.90-5.00) 10*3/uL ESR (0-20) mm/Hr Creatinine 0.65 L (0.66-1.25) mg/dL Glucose 129 H (74-99) mg/dL C-Reactive Protein 16.30 H (0.00-0.80) mg/dL Microbiology - Last 24 Hours (Table) 01/15/25 12:50 Blood Culture - Preliminary Blood
[2025-01-17 12:26] LABS: C Reactive Protein 17.8 mg/dL (<1.0)
[2025-01-17] MEDS: COLCHICINE 0.6 MG EACH PO ONE (12:35)
[2025-01-17] MEDS ORDERED: VANCOMYCIN TROUGH DUE 1 EACH MISC MISCELLANE ONE (14:00)
--- NOTE | 2025-01-17 14:39 | P.PN ---
Subjective Progress Note Date: 01/17/25 Principal diagnosis: Reason for follow-up is left big toe/foot cellulitis Patient is a 79-year-old male with a past medical history significant for hyperlipidemia hypertension osteoarthritis pneumonia skin cancer presenting to the hospital for evaluation of left big toe pain swelling and redness has been diagnosed with a cellulitis prompting this consultation. On today's visit that is 01/17/2025, Patient did have low-grade fever of 99.3 degrees for night this morning patient denies having any chest pain shortness of breath or cough, the patient is currently on room air, patient denies any abdominal pain no diarrhea no nausea no vomiting circumventing of pain to the left foot on weightbearing. Patient white count is 5.81, creatinine 0.65 blood cultures are pending Objective - Vital Signs Vital signs: Vital Signs Temp 99.3 F 01/17/25 07:00 Pulse 88 01/17/25 07:00 Resp 16 01/17/25 07:00 BP 150/75 01/17/25 07:00 Pulse Ox 94 L 01/17/25 07:00 FiO2 Intake & Output 01/16/25 01/17/25 01/17/25 18:59 06:59 18:59 Output Total 1700 Balance -1700 Weight 90.718 kg Output: Urine 1700 Other: Voiding Method Urinal # Voids 1 - Exam GENERAL DESCRIPTION: An elderly male lying in bed in no distress RESPIRATORY SYSTEM: Unlabored breathing , decreased breath sounds at bases HEART: S1 S2 regular rate and rhythm , ABDOMEN: Soft , no tenderness EXTREMITIES: Left big toe did have tenderness to touch with some swelling redness of the first metatarsophalangeal joint - Labs CBC & Chem 7: 01/17/25 06:29 01/17/25 06:29 Labs: Abnormal Lab Results - Last 24 Hours (Table) 01/17/25 01/17/25 Range/Units 06:29 06:29 RBC 3.74 L (4.40-5.60) 10*6/uL Hgb 10.6 L (13.0-17.0) g/dL Hct 32.9 L (39.6-50.0) % MPV 8.7 L (9.5-12.2) fL Lymphocytes # 0.39 L (0.90-5.00) 10*3/uL Creatinine 0.65 L (0.66-1.25) mg/dL Glucose 129 H (74-99) mg/dL C-Reactive Protein 17.8 H (<1.0) mg/dL Microbiology - Last 24 Hours (Table) 01/15/25 12:50 Blood Culture - Preliminary Blood Assessment and Plan (1) Cellulitis of left foot Current Visit: Yes Status: Acute Code(s): L03.116 - CELLULITIS OF LEFT LOWER LIMB SNOMED Code(s): 62665144064296362 (2) Sepsis Current Visit: Yes Status: Acute Code(s): A41.9 - SEPSIS, UNSPECIFIED ORGANISM SNOMED Code(s): 78537166 Plan: 1patient presented to hospital with sepsis in this patient who did have fever and tachycardia meeting currently for SIRS/sepsis source and left big toe cellulitis in this patient who did have a chronic infection of the left big toenail with a complaint of cellulitis x-ray did not show any bony changes patient currently denies any open wound or drainage possibly dealing with gram- positive skin terence 2-patient still complaining of pain seem to have more swelling at the first metatarsophalangeal joint with questionable component of gouty arthritis 3-patient did have improvement in his fever pattern white count is normal blood culture pending continue with the cefazolin colchicine added after discussion with the [employer] this morning and will see clinical response Dictation was produced using [employer] dictation software. please excuse any grammatical, word or spelling errors. Time with Patient: Less than 30
[2025-01-17] MEDS: traMADol 50 MG TAB PO PRN (16:10)
[2025-01-18 09:13] LABS: HCT 32.9 % (39.6-50.0); HGB 10.5 g/dL (13.0-17.0); MCH 28.1 pg (27.0-32.0); MCHC 31.9 g/dL (32.0-37.0); Mean Platelet Volume 9.2 fL (9.5-12.2); Platelet Count 308 10*3/uL (140-440); RBC 3.74 10*6/uL (4.40-5.60); RDW 15.4 % (11.5-14.5)
[2025-01-18 09:24] LABS: African American GFR (CKD) >90 (>60 ml/min/1.73 sqM); Anion Gap 9 mmol/L; Blood Urea Nitrogen 8 mg/dL (9-20); Calcium 7.9 mg/dL (8.4-10.2); Carbon Dioxide 22 mmol/L (22-30); Chloride 107 mmol/L (98-107); Glucose 112 mg/dL (74-99); Magnesium 1.7 mg/dL (1.6-2.3); Non-African American GFR(CKD) >90 (>60 ml/min/1.73 sqM); Potassium 3.3 mmol/L (3.5-5.1); Sodium 138 mmol/L (137-145)
[2025-01-18 09:37] LABS: C Reactive Protein 16.7 mg/dL (<1.0)
[2025-01-18 12:00] LABS: Influenza A Not Detected (Not Detectd); Influenza B Not Detected (Not Detectd); RSV Not Detected (Not Detectd)
--- NOTE | 2025-01-18 12:22 | P.PN ---
Subjective Progress Note Date: 01/18/25 Hospital course: Patient is a pleasant 79-year-old male with a past medical history of CAD status post stenting x 2, peripheral arterial disease status post right iliofemoral patch angioplasty, hypertension, hyperlipidemia, pulmonary emboli, and previous DVT. He presented to the emergency department with a chief complaint thank you of left lower extremity pain and discomfort with inability to bear weight. He reports he first noticed the intermittent pain in his left great toe about a week ago stating nothing could even touch his great toe because even a sheet touching it would cause significant discomfort. He denies having any injuries, cuts, bug bites, or wounds. He reports the pain became constant and intractable about 4 days ago and he was unable to bear any weight. He reports this pain was accompanied by redness, swelling, and subjective fevers. He reports the pain is now from the tip of his left toe radiating all the way up into his left hip describes this pain as sharp and burning. He denies having headache, lightheadedness, dizziness, chest pain, palpitations, shortness of breath, or experiencing any focal numbness in his extremities. Patient does have a history of previous PE and DVT but is no longer on anticoagulation. Patient reports he attempted to control pain at home by staying off of his foot and using crutches and taking tramadol, but reports no relief and only worsening of symptoms so he came to the hospital for evaluation. Upon arrival to our facility, patient underwent evaluation in the emergency room. Vital signs reviewed. Blood pressure 157/80, heart rate 107, respiratory rate 20, temp 99.4 F and SpO2 of 97% on room air. Shortly after arrival patient's temp elevated to 102.2 F. Labs completed and reviewed. CBC showing microcytic anemia with hemoglobin of 12.3. Coagulation profile normal findings. BMP revealing sodium of 136 and glucose of 114. Lactic acid was 1.3. Calcium 9.5. Magnesium 2.1. Liver profile unremarkable. Troponin negative at less than 0.012. CRP was elevated at 19.1. Left lower extremity venous Doppler completed negative for DVT. X-ray left foot and ankle negative for acute fracture showing subcutaneous swelling around the ankle and lucency along the lateral margin of the talar bone possibly reflecting an osteochondral lesion. X-ray left hip negative for acute process revealing moderate degeneration and osteoarthritis. CTA chest was completed negative for pulmonary emboli or other acute process. Patient admitted under services with consultation to infectious disease. Arterial Doppler suggestive of moderate PAD. Physical exam: Patient was seen and fully evaluated at bedside this morning. The previously noted erythema and swelling of left great toe, dorsal surface of foot and ankle seems to have fully resolved. Patient also reports significant improvement of pain and was able to bear weight on his foot this morning. However patient continues to have low-grade temp of 100.3 F high over the past 24 hours. Vital signs reviewed and stable. General: Nontoxic, no distress and appears stated age. Derm: Skin warm and dry, normal coloration for ethnicity. Head: Atraumatic, normocephalic and symmetric. Eyes: EOM's intact, no lid lag, and anicteric sclera Mouth: no lip lesions, mucus membranes moist Cardiovascular: regular rate and rhythm with normal S1S2, no murmur, positive posterior tibial pulses bilaterally, and cap refill < 2 seconds. Lungs: Respirations even, regular, and unlabored on room air. Lungs CTA bilaterally, no rhonchi, no rales, no wheezing, and no accessory muscle usage. Abdominal: soft, nontender to palpation, no guarding, no appreciable organomegaly Ext: No gross muscle atrophy, no edema, no contractures. Movement and sensation intact. Swelling and erythema to his left great toe, foot, and ankle has resolved. Allodynia and thickened toenail remains present to left great toe. Neuro: Speech clear, face symmetrical and CN II-XII grossly intact with no noted focal neuro deficits Psych: Alert and oriented to person, place, time, and situation. Appropriate and pleasant affect. Assessment and Plan of Care: Left lower extremity cellulitis Sepsis on arrival secondary to above as evidenced by temp of 102.2 F and heart rate of 107 -IV antibiotics with cefazolin 2 g every 8 hours. -Symptomatic care and pain management. Tylenol 650 mg every 6 hours as needed for mild pain/fever, tramadol 50 mg every 6 hours as needed for moderate pain, and Dilaudid 1 mg IVP every 3 hours as needed for severe pain. -Infectious disease following, discussed plan of care with Dr. Worthington, -Blood culture showing no growth to date. -Patient received colchicine 1.2 mg p.o. x 1 dose followed by 0.6 mg 1 hour later and exhibited significant improvement in pain. Peripheral arterial disease -Patient's pain and symptoms he describes are similar to PAD, however left foot foot with increased redness, swelling, and is warm not cold. Arterial Doppler suggestive of moderate PAD without reported occlusion. -Symptomatic care and pain management. Tylenol 650 mg every 6 hours as needed for mild pain/fever, tramadol 50 mg every 6 hours as needed for moderate pain, and Dilaudid 1 mg IVP every 3 hours as needed for severe pain. -Continue aspirin 81 mg daily and atorvastatin 40 mg nightly. - Patient to follow-up outpatient with vascular surgeon, Dr. Loredo CAD status post stenting Hypertension Hyperlipidemia -Continue daily medication regimen with amlodipine 5 mg twice daily, aspirin 81 mg daily, atenolol 50 mg daily and 25 mg nightly, atorvastatin 40 mg nightly, and Zetia 10 mg daily. History of PE and previous DVT - No longer on anticoagulation. DVT prophylaxis with Lovenox 40 mg daily. Data and imaging reviewed: Vital signs reviewed. Blood pressure 147/78, heart rate 91, respiratory rate 18, temp 99.0 F, and SpO2 of 96% on room air. Temperature high over the past 24 hours with 100.3 F. Morning labs completed and reviewed. CBC showing normocytic anemia with hemoglobin of 10.5. BMP showing hypokalemia with potassium of 3.3. Blood glucose 112. Magnesium 1.7. CRP continues to be elevated but downward trending from initial 19.1 to 16.7 this morning. CODE STATUS: Full code DVT prophylaxis: Lovenox Anticipated discharge date: Pending clinical course Anticipated discharge place: Home Patient was seen independently by Nurse Practitioner. This document was prepared using [employer] dictation software. Please allow for errors in analytical tech while rare they do occur. Nigel Gonzalez NP rendered care for this patient independently, reviewed the findings and plan as documented in the note above and agree with plan. I did not physically speak with or examine the patient on this date. Objective - Vital Signs Vital signs: Vital Signs Temp 98.8 F 01/18/25 02:00 Pulse 89 01/18/25 02:00 Resp 16 01/18/25 02:00 BP 135/75 01/18/25 02:00 Pulse Ox 93 L 01/18/25 02:00 FiO2 Intake & Output 01/17/25 01/18/25 01/18/25 18:59 06:59 18:59 Intake Total 175 Output Total 1450 Balance -1275 Intake: Oral 175 Output: Urine 1450 Other: # Voids 1 1 - Labs CBC & Chem 7: 01/18/25 08:22 01/18/25 08:22 Labs: Abnormal Lab Results - Last 24 Hours (Table) 01/17/25 Range/Units 06:29 C-Reactive Protein 17.8 H (<1.0) mg/dL Microbiology - Last 24 Hours (Table) 01/15/25 12:50 Blood Culture - Preliminary Blood
[2025-01-18] MEDS: MAGNESIUM OXIDE 400 MG TAB PO STA (12:38)
[2025-01-18] MEDS: POTASSIUM CHLORIDE ER 20 MEQ TAB.ER PO STA (12:38)
[2025-01-18 15:22] LABS: Erythrocyte Sedimentation Rate 63 mm/Hr (0-20)
--- NOTE | 2025-01-18 21:58 | P.PN ---
Subjective Progress Note Date: 01/18/25 Principal diagnosis: Reason for follow-up is left big toe/foot cellulitis Patient is a 79-year-old male with a past medical history significant for hyperlipidemia hypertension osteoarthritis pneumonia skin cancer presenting to the hospital for evaluation of left big toe pain swelling and redness has been diagnosed with a cellulitis prompting this consultation. On today's visit that is 01/18/2025,the patient denies any fever or any chills, patient is breathing comfortably on room air, the patient denies chest pain shortness of breath and no significant cough, patient denies abdominal pain, no nausea vomiting or diarrhea. Patient mentions significant improvement in pain to the left foot area he is able to walk. The patient white count is 5.20 creatinine 0.48 CRP 16.7 blood culture has been negative Objective - Vital Signs Vital signs: Vital Signs Temp 99.0 F 01/18/25 07:00 Pulse 91 01/18/25 07:00 Resp 18 01/18/25 07:00 BP 147/78 01/18/25 07:00 Pulse Ox 96 01/18/25 07:00 FiO2 Intake & Output 01/17/25 01/18/25 01/18/25 18:59 06:59 18:59 Intake Total 175 170 Output Total 1450 Balance -1275 170 Intake: Oral 175 170 Output: Urine 1450 Other: # Voids 1 1 - Exam GENERAL DESCRIPTION: An elderly male lying in bed in no distress RESPIRATORY SYSTEM: Unlabored breathing , decreased breath sounds at bases HEART: S1 S2 regular rate and rhythm , ABDOMEN: Soft , no tenderness EXTREMITIES: Left big toe did have tenderness to touch with some swelling redness of the first metatarsophalangeal joint - Labs CBC & Chem 7: 01/18/25 08:22 01/18/25 08:22 Labs: Abnormal Lab Results - Last 24 Hours (Table) 01/18/25 01/18/25 Range/Units 08:22 08:22 RBC 3.74 L (4.40-5.60) 10*6/uL Hgb 10.5 L (13.0-17.0) g/dL Hct 32.9 L (39.6-50.0) % MCHC 31.9 L (32.0-37.0) g/dL MPV 9.2 L (9.5-12.2) fL Potassium 3.3 L (3.5-5.1) mmol/L BUN 8 L (9-20) mg/dL Creatinine 0.48 L (0.66-1.25) mg/dL Glucose 112 H (74-99) mg/dL Calcium 7.9 L (8.4-10.2) mg/dL C-Reactive Protein 16.7 H (<1.0) mg/dL Microbiology - Last 24 Hours (Table) 01/15/25 12:50 Blood Culture - Preliminary Blood Assessment and Plan (1) Cellulitis of left foot Current Visit: Yes Status: Acute Code(s): L03.116 - CELLULITIS OF LEFT LOWER LIMB SNOMED Code(s): 26539229246785604 (2) Sepsis Current Visit: Yes Status: Acute Code(s): A41.9 - SEPSIS, UNSPECIFIED ORGANISM SNOMED Code(s): 67934135 Plan: 1patient presented to hospital with sepsis in this patient who did have fever and tachycardia meeting currently for SIRS/sepsis source and left big toe cellulitis in this patient who did have a chronic infection of the left big toenail with a complaint of cellulitis x-ray did not show any bony changes patient currently denies any open wound or drainage possibly dealing with gram- positive skin terence 2-patient mention overall improvement in pain to the left foot likely improved with the tramadol anti-inflammatory will continue cefazolin and consider oral Keflex and tramadol/colchicine on discharge if continue to improve Dictation was produced using [employer] dictation software. please excuse any grammatical, word or spelling errors. Time with Patient: Less than 30
[2025-01-19] MEDS: POTASSIUM CHLORIDE ER 20 MEQ TAB.ER PO STA (07:00)
[2025-01-19 08:29] LABS: African American GFR (CKD) >90 (>60 ml/min/1.73 sqM); Anion Gap 9 mmol/L; Blood Urea Nitrogen 11 mg/dL (9-20); Calcium 9.2 mg/dL (8.4-10.2); Carbon Dioxide 28 mmol/L (22-30); Chloride 101 mmol/L (98-107); Glucose 101 mg/dL (74-99); Non-African American GFR(CKD) >90 (>60 ml/min/1.73 sqM); Potassium 4.1 mmol/L (3.5-5.1); Sodium 138 mmol/L (137-145)
[2025-01-19 09:49] VITALS: BP 132/76; PULSE 81; RESP 17; TEMP 98.1
--- NOTE | 2025-01-19 11:15 | P.DS ---
Providers Date of admission: 01/17/25 07:48 Expected date of discharge: 01/19/25 Attending physician: Felice Gardiner MD Consults: 01/15/25 17:14 Consult Physician Routine Consulting Provider: Jorge Worthington Consult Reason/Comments: sepsis due to LLE cellulitis Do you want consulting provider notified?: Yes Primary care physician: Landy Farias Zack Hospital Course: Discharge diagnoses; Acute gout flare Left lower extremity cellulitis Sepsis on arrival secondary to above as evidenced by temp of 102.2 F and heart rate of 107 Peripheral arterial disease CAD status post stenting Hypertension Hyperlipidemia History of PE and previous DVT Rheumatoid arthritis Hospital course; Patient is a pleasant 79-year-old male with a past medical history of CAD status post stenting x 2, peripheral arterial disease status post right iliofemoral patch angioplasty, hypertension, hyperlipidemia, pulmonary emboli, and previous DVT. He presented to the emergency department with a chief complaint thank you of left lower extremity pain and discomfort with inability to bear weight. He reports he first noticed the intermittent pain in his left great toe about a week ago stating nothing could even touch his great toe because even a sheet touching it would cause significant discomfort. He denies having any injuries, cuts, bug bites, or wounds. He reports the pain became constant and intractable about 4 days ago and he was unable to bear any weight. He reports this pain was accompanied by redness, swelling, and subjective fevers. He reports the pain is now from the tip of his left toe radiating all the way up into his left hip describes this pain as sharp and burning. He denies having headache, lightheadedness, dizziness, chest pain, palpitations, shortness of breath, or experiencing any focal numbness in his extremities. Patient does have a history of previous PE and DVT but is no longer on anticoagulation. Patient reports he attempted to control pain at home by staying off of his foot and using crutches and taking tramadol, but reports no relief and only worsening of symptoms so he came to the hospital for evaluation. Upon arrival to our facility, patient underwent evaluation in the emergency room. Vital signs reviewed. Blood pressure 157/80, heart rate 107, respiratory rate 20, temp 99.4 F and SpO2 of 97% on room air. Shortly after arrival patient's temp elevated to 102.2 F. Labs completed and reviewed. CBC showing microcytic anemia with hemoglobin of 12.3. Coagulation profile normal findings. BMP revealing sodium of 136 and glucose of 114. Lactic acid was 1.3. Calcium 9.5. Magnesium 2.1. Liver profile unremarkable. Troponin negative at less than 0.012. CRP was elevated at 19.1. Left lower extremity venous Doppler completed negative for DVT. X-ray left foot and ankle negative for acute fracture showing subcutaneous swelling around the ankle and lucency along the lateral margin of the talar bone possibly reflecting an osteochondral lesion. X-ray left hip negative for acute process revealing moderate degeneration and osteoarthritis. CTA chest was completed negative for pulmonary emboli or other acute process. Patient admitted under services with consultation to infectious disease. Arterial Doppler suggestive of moderate PAD. During patient stay he was treated for left lower extremity cellulitis, suspicious of gout in left great toe, centered on MTP joint. He received antibiotics, and later was started on colchicine where he began to see significant improvement in pain redness and swelling. He was also seen by infectious disease physician. Patient is discharged home in stable condition. He will continue colchicine 0.6 mg twice daily until 24 hours after symptomatic improvement. He will also continue Keflex 500 mg every 6 hours for another the next 2 days. He will need to follow-up with his PCP or diaphragm builder for uric acid levels in 4 weeks, may follow-up for moderate PAD. Physical exam: Vital signs reviewed and stable. General: Nontoxic, no distress and appears stated age. Cardiovascular: regular rate and rhythm with normal S1S2, no murmur, positive po sterior tibial pulses bilaterally, and cap refill < 2 seconds. Lungs: Lungs CTA bilaterally, no rhonchi, no rales, no wheezing, and no accessory muscle usage. Ext: Movement and sensation intact. Swelling and erythema to his left great toe, foot, and ankle has resolved. Allodynia and thickened toenail remains present to left great toe. Hemant Plasencia MD Internal Medicine Resident, PGY1 Dictation was produced using [employer] dictation software. please excuse any grammatical, word or spelling errors. A total of 36 minutes of time were spent preparing this complex discharge [facility]. Patient was discharged on 01/19/2025 at 949. I have seen and evaluated the patient today. Discussed with the resident and agree with the residents finding and plan as documented in the resident's note. Changes highlighted in blue font. Patient Condition at Discharge: Stable Plan - Discharge Summary Discharge Rx Participant: Yes New Discharge Prescriptions: New Colchicine [Colcrys] 0.6 mg PO BID #20 each Cephalexin [Keflex] 500 mg PO Q6HR 2 Days #8 cap Continue Vitamin E (Dl,Tocopheryl Acet) [Vitamin E (400 Iu = 180 mg)] 400 unit PO DAILY Vitamin B Complex 1 tab PO DAILY atenoloL 25 mg PO HS atenoloL 50 mg PO DAILY Magnesium Oxide [Magox 400] 400 mg PO DAILY 14 Days #14 tablet Rosuvastatin [Crestor] 20 mg PO HS Ezetimibe [Zetia] 10 mg PO DAILY amLODIPine [Norvasc] 5 mg PO BID traZODone HCL [Desyrel] 50 mg PO HS Aspirin EC [Ecotrin Low Dose] 81 mg PO DAILY Omeprazole [PriLOSEC] 40 mg PO DAILY metHOTREXate sodium 25 mg PO ANAYA@1999 Folic Acid 1 mg PO DAILY Famotidine 20 mg PO BID Discontinued methylPREDNISolone [Medrol Dose Pack] See Taper PO DIRECTED PRN PRN Reason: hand swelling Discharge Medication List Vitamin B Complex 1 tab PO DAILY 07/13/14 [History] Vitamin E (Dl,Tocopheryl Acet) [Vitamin E (400 Iu = 180 mg)] 400 unit PO DAILY 07/13/14 [History] atenoloL 25 mg PO HS 02/13/16 [History] Aspirin EC [Ecotrin Low Dose] 81 mg PO DAILY 06/16/22 [History] Magnesium Oxide [Magox 400] 400 mg PO DAILY 14 Days #14 tablet 06/16/22 [Rx] atenoloL 50 mg PO DAILY 06/16/22 [History] traZODone HCL [Desyrel] 50 mg PO HS 06/16/22 [History] Omeprazole [PriLOSEC] 40 mg PO DAILY 12/05/22 [History] Rosuvastatin [Crestor] 20 mg PO HS 08/25/23 [History] Ezetimibe [Zetia] 10 mg PO DAILY 01/15/25 [History] Famotidine 20 mg PO BID 01/15/25 [History] Folic Acid 1 mg PO DAILY 01/15/25 [History] amLODIPine [Norvasc] 5 mg PO BID 01/15/25 [History] metHOTREXate sodium 25 mg PO ANAYA@2000 01/15/25 [History] Cephalexin [Keflex] 500 mg PO Q6HR 2 Days #8 cap 01/19/25 [Rx] Colchicine [Colcrys] 0.6 mg PO BID #20 each 01/19/25 [Rx] Follow up Appointment(s)/Referral(s): Jef Loredo DO [Doctor of Osteopathic Medicine] - 1 Week Landy Dixon MD [Primary Care Provider] - 1-2 days Patient Instructions/Handouts: Cellulitis (GEN), Gout (GEN) Activity/Diet/Wound Care/Special Instructions: Take Colchicine 0.6 mg BID until 24 hours after symptom resolution. Follow up with uric acid levels 4 weeks after resolution. Discharge Disposition: HOME SELF-CARE
[2025-01-19] MEDS: COLCHICINE 0.6 MG EACH PO SCH (12:11)
--- NOTE | 2025-01-20 16:23 | P.PN ---
Subjective Progress Note Date: 01/19/25 Principal diagnosis: Reason for follow-up is left big toe/foot cellulitis Patient is a 79-year-old male with a past medical history significant for hyperlipidemia hypertension osteoarthritis pneumonia skin cancer presenting to the hospital for evaluation of left big toe pain swelling and redness has been diagnosed with a cellulitis prompting this consultation. On today's visit that is 01/19/2025,the patient remains to be afebrile, patient is on room air not requiring supplemental oxygen and denies any shortness of breath no chest pain or cough.Patient denies having any nausea or vomiting, no abdominal pain and no diarrhea pain to the left foot has significant improved he is able to walk without any issues. Patient did have a creatinine 0.61 blood culture have been negative Objective - Vital Signs Vital signs: Vital Signs Temp 98.1 F 01/19/25 07:00 Pulse 81 01/19/25 07:00 Resp 17 01/19/25 07:00 BP 132/76 01/19/25 07:00 Pulse Ox 95 01/19/25 07:00 FiO2 Intake & Output 01/18/25 01/19/25 01/19/25 18:59 06:59 18:59 Intake Total 570 200 Balance 570 200 Intake: Oral 570 200 Other: Voiding Method Urinal # Voids 1 1 # Bowel Movements 1 - Exam GENERAL DESCRIPTION: An elderly male lying in bed in no distress RESPIRATORY SYSTEM: Unlabored breathing , decreased breath sounds at bases HEART: S1 S2 regular rate and rhythm , ABDOMEN: Soft , no tenderness EXTREMITIES: Left big toe did have tenderness to touch with some swelling redness of the first metatarsophalangeal joint - Labs CBC & Chem 7: 01/18/25 08:22 01/19/25 07:15 Labs: Abnormal Lab Results - Last 24 Hours (Table) 01/18/25 01/19/25 Range/Units 08:22 07:15 ESR 63 H (0-20) mm/Hr Creatinine 0.61 L (0.66-1.25) mg/dL Glucose 101 H (74-99) mg/dL Microbiology - Last 24 Hours (Table) 01/15/25 12:50 Blood Culture - Preliminary Blood Assessment and Plan (1) Cellulitis of left foot Status: Acute Code(s): L03.116 - CELLULITIS OF LEFT LOWER LIMB SNOMED Code(s): 69108963653479577 (2) Sepsis Status: Acute Code(s): A41.9 - SEPSIS, UNSPECIFIED ORGANISM SNOMED Code(s): 76875038 Plan: 1patient presented to hospital with sepsis in this patient who did have fever and tachycardia meeting currently for SIRS/sepsis source and left big toe cellulitis in this patient who did have a chronic infection of the left big toenail with a complaint of cellulitis x-ray did not show any bony changes patient currently denies any open wound or drainage possibly dealing with gram- positive skin terence 2-patient mention overall improvement in pain to the left foot likely improved with the tramadol anti-inflammatory patient failed therapy short course of oral Keflex as well as colchicine he will follow-up with his resort housekeeper Dr. Mckenzie for further care of the likely gouty arthritis on the left side multiple question concern answered Dictation was produced using [employer] dictation software. please excuse any grammatical, word or spelling errors. Time with Patient: Less than 30
== END 2025-01-19 13:02 | disposition home or self-care (01) ==
LOC: EC 11:07 → 6NMEDSUR 16:54 → UNDOADMOB 16:56 → 6NMEDSUR 20:13 → 1SOBS 01-16 03:18 → 6NMEDSUR 01-16 03:18 → 1SOBS 01-16 07:22 → INTOOBSV 01-17 07:48 → OBSVTOIN 01-17 07:48 → UNDODISIN 01-19 13:02
PROVIDERS: ADMIT Family Medicine; ATTEND Family Medicine
DX: L03.116 Cellulitis of left lower limb (principal); A41.9 Sepsis, unspecified organism; M10.9 Gout, unspecified; E78.5 Hyperlipidemia, unspecified; I10 Essential (primary) hypertension; I25.10 Atherosclerotic heart disease of native coronary artery without angina pectoris; I73.9 Peripheral vascular disease, unspecified; M06.9 Rheumatoid arthritis, unspecified; M19.90 Unspecified osteoarthritis, unspecified site; Z79.82 Long term (current) use of aspirin; Z79.899 Other long term (current) drug therapy; Z85.828 Personal history of other malignant neoplasm of skin; Z86.711 Personal history of pulmonary embolism; Z86.718 Personal history of other venous thrombosis and embolism; Z87.01 Personal history of pneumonia (recurrent); Z87.891 Personal history of nicotine dependence; Z95.5 Presence of coronary angioplasty implant and graft; Z79.01 Long term (current) use of anticoagulants
CPT/HCPCS: 96361 ×3; 96366 ×6; 96367 ×2; 96372 ×4; 96375 ×2; 96376; 96365; 99291; 36415; 93005; 97110; 97161; 80053; 80048 ×4; 85652 ×3; 83605; 83735 ×3; 84484; 85025 ×2; 85027 ×2; 85610; 85730; 86140 ×4; 87040; 87636; 73502; 73610; 73630; 93971; 93922; 71275; G0378 ×5; J3370 ×2; J2270; J0690 ×4; J2405; J1650 ×4; J0692 ×2; J1171 ×2; Q9967